=== PATIENT | female | born 1975 | race African-American/Black ===

== ENCOUNTER 2020-03-21 12:23 | Emergency (ER) | payer OTHER, SELFPAY ==
--- NOTE | 2020-03-21 12:29 | ED.GENADULT ---
HPI - General Adult General Chief complaint: Upper Respiratory Infection Stated complaint: Sore throat Time Seen by Provider: 03/21/20 12:29 Source: patient Mode of arrival: ambulatory Limitations: no limitations History of Present Illness HPI narrative: 44-year-old female patient presents to the [facility] with complaints of a sore throat intermittently for the past 3 weeks. Denies any fevers, body aches or chills. Denies any ear pain. Patient states she has had a little bit of a runny nose and some itchy watery eyes recently as well. Patient states she does have seasonal allergies. Denies trying any 24-hour antihistamines. Patient states she took Benadryl once or twice. Patient states she is also taking NyQuil couple of times but states that her symptoms continue to come back. Patient states that the symptoms do improve when she is taking the medications however she quickly come back when the medication wears off. Patient denies any abdominal pain, nausea, vomiting or diarrhea. Patient is type I diabetic but denies any spikes in her blood sugars. Related Data Home Medications Medication Instructions Recorded Confirmed insulin aspart U-100 [Novolog 03/21/20 U-100 Insulin aspart] insulin degludec [Tresiba SUBCUT 03/21/20 FlexTouch U-100] lisinopril 03/21/20 Allergies Allergy/AdvReac Type Severity Reaction Status Date / Time adhesive tape Allergy Unknown RASH Verified 07/29/18 16:40 almond Allergy Unknown THROAT Verified 07/29/18 16:40 SWELLING Review of Systems Review of Systems: Narrative: CONSTITUTIONAL: Denies fever, chills, or sweats. EYES: Denies visual changes, redness, or discharge. ENT: Positive rhinorrhea, congestion, sore throat, denies otalgia. CARDIOVASCULAR: Denies chest pain, palpitations, or edema. RESPIRATORY: Denies cough or dyspnea. GASTROINTESTINAL: Denies abdominal pain, nausea, vomiting, or diarrhea. GENITOURINARY: Denies dysuria or hematuria. SKIN: Denies rash or itching. MUSCULOSKELETAL: Denies back pain, joint pain, or myalgia. NEUROLOGIC: Denies headache, numbness, or weakness. PSYCHIATRIC: Denies anxiety or depression. [facility] Past Medical History Medical History (Updated 03/21/20 @ 13:09 by BARRON Lopez) Anxiety Depression Endometriosis Fibroids Hypertension Respiratory disorder Chest surgery due to pleurodesis Type 1 diabetes Family History Family History Mother Hypertension Father Family history of diabetes mellitus in first degree relative Family history of coronary artery disease Social History Social History Smoking status: Never smoker Alcohol intake: never Comments At the time of my signature I agree with nursing past medical history, surgical, social, and family history. There is no relevant family history pertinent to the presenting complaint. Exam Narrative: Exam Narrative: GENERAL: Well-appearing, well-nourished, and in no acute distress. HEAD: Normocephalic, atraumatic. No tenderness noted to frontal and maxillary sinuses on palpation EYES: PERRLA and EOMI. ENT: Nares with erythema and edema noted bilaterally, no rhinorrhea or epistaxis. Mucous membranes moist. Posterior pharynx with some postnasal drip present. No erythema no tonsil enlargement no exudates or lesions present. Bilateral TMs are clear no erythema or foreign bodies to the canal. Very mild fluid noted behind the left tympanic membrane. NECK: Supple. No lymphadenopathy CHEST: Clear to auscultation. No respiratory distress. HEART: Regular rate and rhythm. No murmur heard. Normal peripheral pulses. ABDOMEN: Soft, nontender, nondistended, normal active bowel sounds. EXTREMITIES: Normal range of motion. No edema. SKIN: Warm, dry, no rash. NEURO: No focal deficits. Alert and oriented x3. Course Reevaluation(s) Reevaluation #1: Reevaluated patient. Notif
[2020-03-21 12:33] VITALS: BP 115/67; PULSE 79; RESP 18; TEMP 36.7; O2SAT 99
== END 2020-03-21 13:12 | disposition home or self-care (01) ==
PROVIDERS: Emergency Provider Nurse Practitioner Family; PCP Family Medicine
DX: J30.2 Other seasonal allergic rhinitis (principal); J02.9 Acute pharyngitis, unspecified; N80.9 Endometriosis, unspecified; I10 Essential (primary) hypertension; E10.9 Type 1 diabetes mellitus without complications
CPT/HCPCS: 87081; 87880; 99213; G0463

== ENCOUNTER 2020-07-20 07:35 | Outpatient (CLI) | payer OTHER, SELFPAY ==
--- NOTE | ~2020-07-20 | MM_ITS ---
EXAMINATION: MM screening shilo BI w shani HISTORY: Screening TECHNIQUE: Craniocaudal and mediolateral oblique 3-D tomosynthesis images were obtained and synthetic 2-D images were generated. CAD analysis was submitted and interpreted. COMPARISON: Comparison to multiple prior studies sequentially, with oldest reviewed study dated 09/2013. BREAST PARENCHYMAL COMPOSITION: The breasts are heterogeneously dense, which may obscure small masses . FINDINGS: There are developing asymmetries and calcifications in the right breast. The left breast is stable without evidence for malignancy. IMPRESSION: 1. Developing right breast asymmetries and clustered calcifications in the right breast. 2. Additional mammographic views and possible breast ultrasound are recommended. BI-RADS Category 0: Incomplete: Needs additional imaging evaluation. Reviewed, dictated and finalized at location A. WASHER IMPRESSION: 1. Developing right breast asymmetries and clustered calcifications in the righ t breast. 2. Additional mammographic views and possible breast ultrasound are recommended . BI-RADS Category 0: Incomplete: Needs additional imaging evaluation.
== END 2020-07-20 07:36 | disposition home or self-care (01) ==
LOC: ANHIMG 07:40
PROVIDERS: PCP Family Medicine; Visit Provider Obstetrics & Gynecology
DX: Z12.31 Encounter for screening mammogram for malignant neoplasm of breast (principal); R92.8 Other abnormal and inconclusive findings on diagnostic imaging of breast
CPT/HCPCS: 77063; 77067

== ENCOUNTER 2020-08-26 10:58 | Outpatient (CLI) | payer OTHER, SELFPAY ==
--- NOTE | ~2020-08-26 | MMUS_ITS ---
EXAMINATION: MM diagnostic mammo unilat RT, US breast RT complete HISTORY: Follow-up right breast asymmetry and calcifications TECHNIQUE: Additional 3-D tomosynthesis images of the right breast were performed and synthetic 2-D i mages were generated. CAD analysis was submitted and interpreted. High resolution right breast ultras ound was performed. COMPARISON: Comparison to multiple prior studies sequentially, with oldest reviewed study dated 04/13. BREAST PARENCHYMAL COMPOSITION: The breasts are heterogenously dense, which may obscure small masses. FINDINGS: MAMMOGRAPHIC FINDINGS: There are clustered indeterminate calcifications in the lower inner quadrant of the right breast, mid dle third. Stable benign-appearing mass in the outer aspect of the right breast. No new masses, calci fications or architectural distortion to suggest malignancy. ULTRASOUND: Limited right breast ultrasound: At 9:00 near the nipple there is a 2 cm simple cyst. No suspicious m asses to suggest malignancy. IMPRESSION: 1. Clustered indeterminate right breast calcifications. 2. Stereotactic right breast biopsy recommended. BI-RADS category 4, suspicious findings. Reviewed, dictated and finalized at location A. ION ASSISTANT IMPRESSION: 1. Clustered indeterminate right breast calcifications. 2. Stereotactic right breast biopsy recommended. BI-RADS category 4, suspicious findings.
== END 2020-08-26 10:59 | disposition home or self-care (01) ==
LOC: ANHIMG 11:00
PROVIDERS: PCP Family Medicine; Visit Provider Obstetrics & Gynecology
DX: R92.8 Other abnormal and inconclusive findings on diagnostic imaging of breast (principal)
CPT/HCPCS: 76641; 77065

== ENCOUNTER 2020-09-04 10:05 | Outpatient (CLI) | payer OTHER, SELFPAY ==
--- NOTE | ~2020-09-04 | MM_ITS ---
07/30/2020 bilateral digital screening mammogram and 08/26/2020 diagnostic right digital mammogram and complete right breast ultrasound examination were reviewed. There are scattered benign calcifications of the right breast. There are 2 areas of calcification lik rajiv due to partially calcified fibroadenomas. No malignant calcifications are identified. I discussed the findings with the patient and indicated that the calcifications had benign appearance and that biopsy was not indicated or necessary. IMPRESSIONS: BI-RADS Category 2: Benign Recommendation: Routine annual mammographic screening Reviewed, dictated and finalized at location A. NICAL WRITING LEAD/MGR IMPRESSIONS: BI-RADS Category 2: Benign Recommendation: Routine annual mammographic screening
== END 2020-09-04 10:06 | disposition home or self-care (01) ==
LOC: ANHIMG 10:07
PROVIDERS: PCP Family Medicine; Visit Provider Surgery
DX: R92.8 Other abnormal and inconclusive findings on diagnostic imaging of breast (principal)
CPT/HCPCS: 99199

== ENCOUNTER 2020-09-16 11:30 | Outpatient (CLI) | payer OTHER, SELFPAY ==
[2020-09-16 14:25] LABS: Free T4 Free Thyroxine 1.51 ng/mL (0.78-2.19); Vitamin D 25 Hydroxy 35.9 ng/mL
[2020-09-19 05:18] LABS: FSH 114.7 mIU/mL (***); LH 73.9 mIU/mL (***); Prolactin 9.3 ng/mL (***)
== END 2020-09-16 11:31 | disposition home or self-care (01) ==
PROVIDERS: PCP Family Medicine; Visit Provider Nurse Practitioner
DX: N91.2 Amenorrhea, unspecified (principal)
CPT/HCPCS: 36415; 82306; 83001; 83002; 84146; 84439; 84443

== ENCOUNTER → 2021-07-07 08:33 | Outpatient (CLI) | payer OTHER, SELFPAY ==
--- NOTE | ~2021-07-07 | US_ITS ---
EXAMINATION: US pelvic complete EXAM DATE: 07/07/2021 08:54 INDICATION: Pelvic, perineal pain. TECHNIQUE: Pelvic transabdominal sonogram was performed. There are multiple grayscale and Doppler im ages available for interpretation. Comparison is made to prior examination from 07/07/2018. FINDINGS: Uterus measures 8.2 x 4.5 x 6.5 cm, with several several fibroids suspected, largest focal region measured at 5 cm, others much smaller. Endometrial stripe measures 4 mm, within normal limits . There is no free pelvic fluid. Right adnexa: The ovary measures 4.7 x 2.4 x 2.5 cm and is morphologically normal. Ovarian vascular f low confirmed. Left adnexa: The ovary measures 2.0 x 1.4 x 2.1 cm and is morphologically normal. Ovarian vascular fl ow confirmed. IMPRESSION: 1. Unremarkable pelvic ultrasound exam. Reviewed, dictated and finalized at location B. AGE GRINDER
== END ==
PROVIDERS: Visit Provider Obstetrics & Gynecology
DX: R10.2 Pelvic and perineal pain (principal)
CPT/HCPCS: 76856

== ENCOUNTER 2021-09-08 08:44 | Outpatient (CLI) | payer OTHER, SELFPAY ==
--- NOTE | ~2021-09-08 | MM_ITS ---
EXAMINATION: MM screening shilo BI w shani HISTORY: Screening mammogram TECHNIQUE: Craniocaudal and mediolateral oblique 3-D tomosynthesis images were obtained and synthetic 2-D images were generated. CAD analysis was submitted and interpreted. COMPARISON: 08/26/2020, 07/20/2020, 06/23/2019, 05/27/2019 BREAST PARENCHYMAL COMPOSITION: The breasts are heterogeneously dense, which may obscure small masses . FINDINGS: Scattered benign-appearing calcifications are present. There is no evidence of suspicious m ass, calcification, or architectural distortion to suggest malignancy in either breast. There has bee n no suspicious interval change. IMPRESSION: 1. No mammographic evidence of malignancy. 2. Recommend routine screening mammography in one year. BI-RADS Category 2: Benign finding(s). Reviewed, dictated and finalized at location A. ANICAL SPREADER OPERATOR
== END 2021-09-08 08:45 | disposition home or self-care (01) ==
LOC: ANHIMG 08:46
PROVIDERS: PCP Family Medicine; Visit Provider Obstetrics & Gynecology
DX: Z12.31 Encounter for screening mammogram for malignant neoplasm of breast (principal)
CPT/HCPCS: 77063; 77067

== ENCOUNTER 2021-11-21 13:06 | Outpatient (CLI) | payer OTHER, SELFPAY ==
--- NOTE | ~2021-11-21 | MR_ITS ---
EXAMINATION: MR shoulder LT wo con DATE: 11/21/2021 14:14 INDICATION: Left shoulder pain TECHNIQUE: Magnetic resonance imaging (MRI) of the left shoulder was performed without intravenous co ntrast. Sequences included axial PD-weighted FS FSE, coronal oblique PD-weighted FS FSE, coronal obli que T2-weighted FS FSE, sagittal PD-weighted FS FSE, and sagittal T1-weighted SE. COMPARISON: None. FINDINGS: Coracoacromial arch: The acromion undersurface is minimally curved in morphology (type I-II). The coracoacromial ligament is normal. Acromioclavicular joint is normal. Rotator cuff: Supraspinatus tendinopathy with very small likely intrasubstance tear along the superior facet footpl ate measuring 2 mm AP and involving no greater than one third of the tendon thickness. The teres khadra r tendon is normal. There is approximately 6 x 4 mm region of high signal intensity material along th e deep margin of the subscapularis tendon which extends approximately 12 mm craniocaudally along the medial margin of the lesser tuberosity insertion. There appears to be subtle concavity to the bone at this location which could represent an erosion. There is a similar small region of increased signal intensity and suggestion of a small erosion on the medial margin of the middle facet footplate of the infraspinatus tendon. The subscapularis and infraspinatus tendons are otherwise normal. This raises suspicion for inflammatory arthritis such as rheumatoid. Normal rotator cuff muscle bulk and signal. Biceps tendon, glenoid labrum and glenohumeral cartilage: Long head of the biceps tendon is normal. Glenoid labrum is normal. Mild partial-thickness cartilage loss with smooth chondral surface diffusely along the humeral head and at the cephalad third of the g lenoid. Fluid: Small amount of fluid in the long head biceps tendon sheath which is disproportionate to the physiolo gic amount fluid in the glenohumeral joint consistent with mild bicipital tenosynovitis. No loose ost eochondral bodies. No abnormal increased fluid in the subacromial/subdeltoid bursa consistent with mi ld bursitis. Bones: Bone alignment is normal. No fracture or pathologic marrow replacing process. IMPRESSION: 1. Mild supraspinatus tendinopathy with tiny mild intrasubstance tear along the superior facet footpl ate. 2. Suggestion of synovitis and periarticular erosions along the deep margins of the insertions of the subscapularis and infraspinatus tendons. Appearance raises possibility of inflammatory arthritis wit h differential including rheumatoid arthritis, psoriatic arthritis, lupus or ankylosing spondylitis. 3. Mild glenohumeral arthritis with mild partial-thickness cartilage loss which could be either degen erative or inflammatory in etiology. 4. Mild bicipital tenosynovitis. Reviewed, dictated and finalized at location A. IMPRESSION: 1. Mild supraspinatus tendinopathy with tiny mild intrasubstance tear along the superior facet footplate. 2. Suggestion of synovitis and periarticular erosions along the deep margins of the insertions of the subscapularis and infraspinatus tendons. Appearance rais es possibility of inflammatory arthritis with differential including rheumatoid arthritis, psoriatic arthritis, lupus or ankylosing spondylitis. 3. Mild glenohumeral arthritis with mild partial-thickness cartilage loss which could be either degenerative or inflammatory in etiology. 4. Mild bicipital tenosynovitis.
== END 2021-11-21 13:07 | disposition home or self-care (01) ==
PROVIDERS: PCP Family Medicine; Visit Provider Physician Assistant
DX: R29.898 Other symptoms and signs involving the musculoskeletal system (principal); M25.612 Stiffness of left shoulder, not elsewhere classified; S43.402A Unspecified sprain of left shoulder joint, initial encounter; M19.012 Primary osteoarthritis, left shoulder
CPT/HCPCS: 73221

== ENCOUNTER → 2021-12-16 13:18 | Outpatient (CLI) | payer OTHER, SELFPAY ==
--- NOTE | ~2021-12-16 | XR_ITS ---
EXAM: XR lumbar spine 2-3V DATE: 12/16/2021 14:31 HISTORY: M19.90 - Unspecified osteoarthritis, unspecified site . COMPARISON: None available. FINDINGS: 5 nonrib-bearing lumbar-type vertebral bodies. Pedicles intact. Normal vertebral body alig nment. Vertebral body heights preserved. Mild disc space narrowing at L3-4 and L5-S1. Normal facets a nd posterior elements. No fracture or dislocation. IMPRESSION: Mild degenerative disc disease. Reviewed, dictated and finalized at location K.
--- NOTE | ~2021-12-16 | XR_ITS ---
EXAM: XR thoracic spine 3V DATE: 12/16/2021 14:31 HISTORY: M19.90 - Unspecified osteoarthritis, unspecified site . COMPARISON: None available. FINDINGS: Surgical clips over the right hilum. Vertebral body alignment intact. Vertebral body height s preserved. No disc space narrowing. No traumatic malalignment or fracture. Visualized lung parenchy ma is clear. IMPRESSION: Normal thoracic spine radiograph findings. Reviewed, dictated and finalized at location K.
--- NOTE | ~2021-12-16 | XR_ITS ---
EXAM: XR sacrum coccyx min 2V DATE: 12/16/2021 14:31 HISTORY: M19.90 - Unspecified osteoarthritis, unspecified site . COMPARISON: None available. FINDINGS: Normal mineralization. No fracture or dislocation. No lytic or blastic lesion. Joint space s are maintained. No erosion or periosteal change. Soft tissues within normal limits. IMPRESSION: Normal sacrum and coccyx radiograph findings. Reviewed, dictated and finalized at location K.
== END ==
PROVIDERS: PCP Family Medicine; Visit Provider Physician Assistant
DX: M19.90 Unspecified osteoarthritis, unspecified site (principal); M54.9 Dorsalgia, unspecified; M51.36 Other intervertebral disc degeneration, lumbar region
CPT/HCPCS: 72072; 72100; 72220

== ENCOUNTER 2021-12-16 14:38 | Outpatient (CLI) | payer OTHER, SELFPAY ==
[2021-12-16 15:17] LABS: CRP < 0.5 mg/dL (<1.0)
[2021-12-16 15:20] LABS: Rheumatoid Factor < 8.6 IU/ML (<12)
[2021-12-16 15:24] LABS: Erythrocyte Sedimentation Rate 37 mm/hr (0-20)
== END 2021-12-16 14:39 | disposition home or self-care (01) ==
LOC: ANHLAB 14:39
PROVIDERS: PCP Family Medicine; Visit Provider Physician Assistant
DX: M19.90 Unspecified osteoarthritis, unspecified site (principal)
CPT/HCPCS: 36415; 85652; 86038; 86140; 86430

== ENCOUNTER 2022-01-15 08:45 | Outpatient (CLI) | payer OTHER, SELFPAY ==
--- NOTE | ~2022-01-15 | XR_ITS ---
EXAMINATION: XR lg joint inject/asp w image DATE: 01/15/2022 09:41 INDICATION: Frozen left shoulder TECHNIQUE: A time-out was performed to verify the patient's name, date of , and procedure to b e performed. The procedure including the risks, benefits, and alternatives was discussed with the pat ient. Risks discussed included bleeding and infection. The patient understood the risks and agreed to proceed. The skin overlying the rotator cuff interval of the left glenohumeral joint was prepped an d draped in usual sterile fashion. Anesthetic was administered with 1% lidocaine subcutaneously. A 22 G needle was advanced under fluoroscopic guidance into the joint. Injection of small amount of ga s confirmed intra-articular position of the needle. Subsequently, injectate consisting of 4 mm a 3:1 mixture of 1% lidocaine: 80 mg/mL Depo-Medrol for a total dosage of 80 mg Depo-Medrol was instilled. Washout of contrast was seen confirming intra-articular administration. The needle was removed and t he entry site was cleaned and dressed. There were no immediate complications. Fluoroscopy exposure t connor was 0.1 minutes. The total number of images was 2. FINDINGS: Real-time fluoroscopy demonstrates the needle and injected gas in the left glenohumeral armando nt. Patient's pain prior to procedure:7/10. Patient's pain following the procedure: 0/10. IMPRESSION: 1. Left glenohumeral joint injection of local anesthetic and steroid with decrease in the patient's p resenting pain. Reviewed, dictated and finalized at location A. IMPRESSION: 1. Left glenohumeral joint injection of local anesthetic and steroid with decre ase in the patient's presenting pain.
== END 2022-01-15 08:46 | disposition home or self-care (01) ==
PROVIDERS: PCP Family Medicine; Visit Provider Orthopaedic Surgery
DX: M75.02 Adhesive capsulitis of left shoulder (principal)
CPT/HCPCS: 20610; 77002; J1030

== ENCOUNTER 2022-04-20 11:38 | Outpatient (CLI) | payer OTHER, SELFPAY ==
[2022-04-20 12:12] LABS: Basophils Percent Auto 0.4 % (0.2-1.2); Eosinophils Absolute Auto 0.2 K/mm3 (0-0.3); Eosinophils Percent Auto 3.8 % (0-4.4); Hematocrit 40.2 % (37.0-47.0); Immature Granulocyte Absolute 0.01 K/mm3 (0.00-0.031); Immature Granulocyte Percent A 0.2 % (0-0.5); Lymphocytes Absolute Auto 1.97 K/mm3 (0.9-3.2); Lymphocytes Percent Auto 36.1 % (18.3-44.2); Mean Corpuscular HGB Conc 32.3 g/dl (32-36); Mean Corpuscular Hemoglobin 31.3 pg (26-34); Mean Corpuscular Volume 96.6 fl (80-100); Mean Platelet Volume 9.3 fl (7.4-10.4); Monocytes Absolute Auto 0.4 K/mm3 (0.1-0.6); Monocytes Percent Auto 7.1 % (2.6-8.5); Neutrophils Absolute Auto 2.9 K/mm3 (1.3-6.7); Neutrophils Percent Auto 52.4 % (45.5-73.1); Platelet Count Result 357 k/mm3 (150-375); Red Blood Count 4.16 M/mm3 (4.2-5.4); Red Cell Distribution Width 12.1 % (11.5-14.5); White Blood Count 5.5 K/mm3 (4.5-10.0)
[2022-04-20 12:26] LABS: Alanine Aminotransferase 10 U/L (6-35); Albumin Level 4.4 g/dL (3.5-5.1); Alkaline Phosphatase 140 U/L (38-126); Anion Gap 9 mmol/L (8-16); Aspartate Amino Transferase 24 U/L (14-36); Bilirubin,Total 0.2 mg/dL (0.2-1.3); Blood Urea Nitrogen 15 mg/dL (7-17); Calcium 9.3 mg/dL (8.4-10.2); Carbon Dioxide 27 mmol/L (22-30); Chloride 99 mmol/L (98-107); Cholesterol 185 mg/dL (0-200); Estimated Glomerular Filt Rate > 60; Glucose 225 mg/dL (65-110); HDL Direct 55 mg/dL; Potassium 4.3 mmol/L (3.4-5.0); Sodium 135 mmol/L (137-145); Triglycerides 68 mg/dL (<150)
[2022-04-20 12:38] LABS: LDL Cholesterol Direct 93 mg/dL
[2022-04-20 12:56] LABS: Creatinine Urine 26.7 mg/dL
[2022-04-20 13:02] LABS: Microalbumin Urine Random < 6.0 mg/L (0-16.7)
[2022-04-20 13:12] LABS: Free T4 Free Thyroxine 1.25 ng/mL (0.78-2.19)
== END 2022-04-20 11:39 | disposition home or self-care (01) ==
PROVIDERS: PCP Family Medicine
DX: E10.9 Type 1 diabetes mellitus without complications (principal); E55.9 Vitamin D deficiency, unspecified
CPT/HCPCS: 36415; 80053; 80061; 82043; 84439; 84443; 85025

== ENCOUNTER 2022-06-13 08:34 | Outpatient (CLI) | payer OTHER, SELFPAY ==
[2022-06-13 09:18] LABS: Alanine Aminotransferase 9 U/L (6-35); Alkaline Phosphatase 113 U/L (38-126); Anion Gap 6 mmol/L (8-16); Aspartate Amino Transferase 22 U/L (14-36); Bilirubin,Total 0.3 mg/dL (0.2-1.3); Blood Urea Nitrogen 16 mg/dL (7-17); Calcium 8.8 mg/dL (8.4-10.2); Carbon Dioxide 31 mmol/L (22-30); Chloride 102 mmol/L (98-107); Cholesterol 163 mg/dL (0-200); Estimated Glomerular Filt Rate > 60; Glucose 130 mg/dL (65-110); HDL Direct 42 mg/dL; Magnesium 1.7 mg/dL (1.6-2.3); Sodium 139 mmol/L (137-145); Triglycerides 58 mg/dL (<150)
[2022-06-13 09:29] LABS: LDL Cholesterol Direct 81 mg/dL
== END 2022-06-13 08:35 | disposition home or self-care (01) ==
LOC: ANHLAB 08:36
PROVIDERS: PCP Family Medicine; Visit Provider Internal Medicine Cardiovascular Disease
DX: E78.2 Mixed hyperlipidemia (principal); I10 Essential (primary) hypertension; R00.2 Palpitations
CPT/HCPCS: 36415; 80053; 80061; 83735

== ENCOUNTER 2022-07-01 08:58 | Emergency (ER) | payer OTHER, SELFPAY ==
[2022-07-01 09:03] VITALS: BP 140/73; PULSE 109; RESP 24; TEMP 36.2; O2SAT 100
--- NOTE | 2022-07-01 09:10 | ED.ALLEREA ---
HPI - Allergic Reaction General Chief complaint: Allergic Reaction Stated complaint: swollen tongue Time Seen by Provider: 07/01/22 09:00 Source: patient Mode of arrival: ambulatory Limitations: no limitations History of Present Illness HPI narrative: Ms. Sprague is a 46-year-old female patient presenting to the clinic today with complaints of tongue swelling. She reports her tongues has been swelling since . States that she started a new cholesterol medication on Wednesday. States that she has had the same reaction with atorvastatin before but her doctor wanted to try her on did different cholesterol medication. She has been taking Zetia. She denies any shortness of breath, drooling, or difficulty breathing Related Data Home Medications Medication Instructions Recorded Confirmed aspirin 81 mg tablet,delayed 81 mg PO DAILY 06/29/22 07/01/22 release biotin 10,000 mcg chewable tablet 10,000 mcg PO DAILY 06/29/22 07/01/22 (Hair, Skin and Nails (biotin)) insulin aspart U-100 100 unit/mL 75 unit subcut DAILY 06/29/22 07/01/22 subcutaneous solution (Novolog U-100 Insulin aspart) lisinopril 2.5 mg tablet 2.5 mg PO DAILY 06/29/22 07/01/22 Allergies Allergy/AdvReac Type Severity Reaction Status Date / Time atorvastatin Allergy Severe Swelling Verified 06/29/22 16:31 of Lip/Tongue/Throat adhesive tape Allergy Unknown RASH Verified 01/30/22 09:01 almond Allergy Unknown THROAT Verified 01/30/22 09:01 SWELLING ezetimibe [From Zetia] Allergy Swelling Verified 07/01/22 09:12 of Lip/Tongue/Throat Review of Systems Review of Systems: Pertinent positives per HPI. Patient denies any fever, chills, rash, headache, visual changes, dizziness, cough, runny nose, sore throat, shortness of breath, chest pain, palpitations, nausea, vomiting, diarrhea, constipation, abdominal pain, or any urinary issues. [facility] Past Medical History Medical History Adhesive capsulitis of left shoulder Anxiety Depression no diagnosis just with things going on she feels it. Endometriosis Fibroids History of blood transfusion Inflammatory arthritis Pneumothorax Respiratory disorder Chest surgery due to pleurodesis Type 1 diabetes Surgical History Surgical History H/O laparoscopy History of lung surgery due to pneumothorax Family History Family History Mother Hypertension Father Family history of diabetes mellitus in first degree relative Family history of coronary artery disease Social History Social History Smoking status: Never smoker Second hand tobacco smoke exposure: No Alcohol intake: never Substance use: never Substance use type: does not use Gender identity (if verbalized by the patient): Female Sexual Orientation (if Verbalized by the Patient): Straight or Heterosexual Spiritual care concerns: No Comments At the time of my signature, I reviewed and agree with the nursing past medical, surgical, social, and family history. There is no relevant family history pertinent to the patient complaint. Exam Narrative: General: Well-developed, well nourished, in no apparent distress Head: Normocephalic, atraumatic Eyes: Pupils equally round and reactive to light bilaterally, EOM intact, sclera and conjunctive clear, no discharge, lids normal Ears: TMs intact and clear, ear canals clear, no drainage, grossly hearing normal. Nose: Nares patent, no discharge, no inflammation, no sinus tenderness. Mouth: Oropharynx without lesions or masses, good dentition, MMM. tongue swelling, Mallampati class 4 due to tongue swelling Neck: Supple, trachea midline, no enlargement of anterior or posterior cervical nodes, no thyroid masses or goiter p
[2022-07-01 09:48] VITALS: PULSE 98; RESP 20; O2SAT 100
== END 2022-07-01 09:48 | disposition home or self-care (01) ==
PROVIDERS: Emergency Provider Nurse Practitioner Family; PCP Family Medicine
DX: T78.3XXA Angioneurotic edema, initial encounter (principal); N80.9 Endometriosis, unspecified; E10.9 Type 1 diabetes mellitus without complications; M13.80 Other specified arthritis, unspecified site; Z79.82 Long term (current) use of aspirin
CPT/HCPCS: 96372; 99213; G0463; J1100

== ENCOUNTER 2022-07-15 01:09 | Day surgery (SDC) | payer OTHER, SELFPAY ==
[2022-06-29 16:14] VITALS: BMI 33.7
--- NOTE | 2022-06-29 16:23 | SUR.PREOP ---
Report to the Outpatient Waiting Room, entrance under the green pavilion located off [facility], at time 0930 on date 07/15/21. Planned Procedure Time: . Time changes happen often and if your time is changed the preop area will call you the afternoon before. - You and your visitor will be asked to self-screen and do not enter if you have any COVID symptoms. - Only one visitor is requested with a max of two and NO children visitors are allowed at this time. - The patient visitor may be requested to leave or wait in car when not with patient due to distancing restrictions. - A mask is optional within the hospital. Patients may have clear liquids (water, carbonated beverages, clear teas, apple juice) until 3 hours prior to surgery with a maximum of 20 ounces. - No food from midnight until time of surgery BEFORE * - Infants may have breast milk until 4 hours before surgery, infant formula 6 hours prior to surgery. - Children will be allowed to drink immediately following surgery. If applicable, please bring a bottle or sippy cup to assist with drinking. Juice, water, soda, and popsicles are readily available. For infants on formula, please bring formula the day of surgery. Pacifiers are allowed. Take the following medications with a SIP of water the morning of surgery: ___continue insulin pump Medications to discontinue per physician ___hold aspirin 7 days prior to surgery per Raya from Dr. Paulino office Date to take last dose Please no make-up, nail german, hairspray, perfume, deodorant, or body powder the day of surgery. No jewelry (including any body piercings) or valuables the day of surgery, leave them at home. Please take a shower or bath the night before, or the morning of, surgery with an antibacterial soap. Wear comfortable, loose fitting clothing. Children are encouraged to wear pajamas. - Jewelry must be removed prior to entering the operating room. Rings and piercings that are not removed may be cut off. - The hospital will not accept responsibility for valuables. - Please leave all valuables, including medications, at home the day of surgery. If you are going home after surgery, a licensed residential recycle driver must drive you home. - NO public transportation without another adult if you receive anesthesia. - We recommend that an adult stay with you for 24 hours following discharge. - We also recommend that you do not drive, make important decision, drink alcoholic beverages, or take any drugs that were not prescribed by your health care provider for at least 24 hours after your discharge time. For Pediatric surgeries, we recommend two adults accompany the child home. Follow any additional instructions given to you from your surgeon. If you or anyone in your household have experienced Covid symptoms in the past week, please notify your surgeon or the nurse liaison at the phone number below for possible testing. Telephone instructions given to and asked if any additional questions and then verbalized understanding. Patient advised to call surgeon office or pre surgery nurse liaison [phone] if any additional questions.
--- NOTE | 2022-06-29 16:29 | SUR.PREOP ---
Addendum entered by Indy Dawson RN 06/29/22 16:37: hold vitamin 3 days prior Original Note: Report to the Outpatient Waiting Room, entrance under the green pavilion located off [facility], at time 0930 on date 07/15/2022. Planned Procedure Time: 1130. Time changes happen often and if your time is changed the preop area will call you the afternoon before. - You and your visitor will be asked to self-screen and do not enter if you have any COVID symptoms. - Only one visitor is requested with a max of two and NO children visitors are allowed at this time. - The patient visitor may be requested to leave or wait in car when not with patient due to distancing restrictions. - A mask is optional within the hospital. Patients may have clear liquids (water, carbonated beverages, clear teas, apple juice) until 3 hours prior to surgery with a maximum of 20 ounces. - No food from midnight until time of surgery before 8:30am - Infants may have breast milk until 4 hours before surgery, formula 6 hours prior to surgery. - Children will be allowed to drink immediately following surgery. If applicable, please bring a bottle or sippy cup to assist with drinking. Juice, water, soda, and popsicles are readily available. For infants on formula, please bring formula the day of surgery. Pacifiers are allowed. Take the following medications with a SIP of water the morning of surgery: __continue insulin pump_ Medications to discontinue per physician _discontinue Aspirin 7 days before surgery per Raya from Dr. Paulino office Date to take last dose Please no make-up, nail tristanian, hairspray, perfume, deodorant, or body powder the day of surgery. No jewelry (including any body piercings) or valuables the day of surgery, leave them at home. Please take a shower or bath the night before, or the morning of, surgery with an antibacterial soap. Wear comfortable, loose fitting clothing. Children are encouraged to wear pajamas. - Jewelry must be removed prior to entering the operating room. Rings and piercings that are not removed may be cut off. - The hospital will not accept responsibility for valuables. - Please leave all valuables, including medications, at home the day of surgery. If you are going home after surgery, a licensed sprinkler truck driver must drive you home. - NO public transportation without another adult if you receive anesthesia. - We recommend that an adult stay with you for 24 hours following discharge. - We also recommend that you do not drive, make important decision, drink alcoholic beverages, or take any drugs that were not prescribed by your health care provider for at least 24 hours after your discharge time. For Pediatric surgeries, we recommend two adults accompany the child home. Follow any additional instructions given to you from your surgeon. If you or anyone in your household have experienced Covid symptoms in the past week, please notify your surgeon or the nurse liaison at the phone number below for possible testing. Telephone instructions given to patient and asked if any additional questions and then verbalized understanding. Patient advised to call surgeon office or pre surgery nurse liaison [phone] if any additional questions.
--- NOTE | 2022-07-08 12:40 | PM.IMHP ---
H&P: HPI History of Present Illness Date/Time: 07/08/22 12:40 Chief Complaint: Right index trigger finger Narrative: 46-year-old female presents today for A1 amadou release of her right index finger. She has been having symptoms of triggering in her right index finger for over 6 months. Patient has had 2 cortisone injections which gave temporary relief. The triggering the pain has recurred. Due to the fact she has already had 2 injections it is recommended that she undergo release of the A1 amadou. Continued injections could soften the tendon because tendon rupture. Patient wished to proceed with surgery at this point. Review of Systems Review of Systems: All systems reviewed & are unremarkable except as noted in HPI and below PMFSH Past Medical History Medical History Adhesive capsulitis of left shoulder Anxiety Depression no diagnosis just with things going on she feels it. Endometriosis Fibroids History of blood transfusion Inflammatory arthritis Pneumothorax Respiratory disorder Chest surgery due to pleurodesis Type 1 diabetes Surgical History Surgical History H/O laparoscopy History of lung surgery due to pneumothorax Family History Family History Mother Hypertension Father Family history of diabetes mellitus in first degree relative Family history of coronary artery disease Social History Social History Smoking status: Never smoker Second hand tobacco smoke exposure: No Alcohol intake: never Substance use: never Substance use type: does not use Gender identity (if verbalized by the patient): Female Sexual Orientation (if Verbalized by the Patient): Straight or Heterosexual Spiritual care concerns: No Meds Home Medications and Allergies Home Medications Medication Instructions Recorded Confirmed Type aspirin 81 mg tablet,delayed 81 mg PO DAILY 06/29/22 07/01/22 History release biotin 10,000 mcg chewable tablet 10,000 mcg PO DAILY 06/29/22 07/01/22 History (Hair, Skin and Nails (biotin)) insulin aspart U-100 100 unit/mL 75 unit subcut DAILY 06/29/22 07/01/22 History subcutaneous solution (Novolog U-100 Insulin aspart) lisinopril 2.5 mg tablet 2.5 mg PO DAILY 06/29/22 07/01/22 History prednisone 20 mg tablet 40 mg PO DAILY 5 days #10 tabs 07/01/22 Rx Allergies Allergy/AdvReac Type Severity Reaction Status Date / Time atorvastatin Allergy Severe Swelling Verified 06/29/22 16:31 of Lip/Tongue/Throat adhesive tape Allergy Unknown RASH Verified 01/30/22 09:01 almond Allergy Unknown THROAT Verified 01/30/22 09:01 SWELLING ezetimibe [From Zetia] Allergy Swelling Verified 07/01/22 09:12 of Lip/Tongue/Throat Exam Narrative: 46-year-old female alert pleasant. She has moderate tenderness over the A1 amadou of the right index finger. She has a 5 degree flexion contracture of the PIP joint of the right index finger. She does have active triggering with range of motion. Resp: Auscultation: clear to auscultation bilaterally Cardio: Rate: regular rate Rhythm: regular rhythm Assessment and Plan Assessment and plan (1) Trigger finger: Code(s): M65.30 - Trigger finger, unspecified finger Status: Acute Plan 46-year-old female who has had recurrence of her right index trigger finger. Again she has had 2 injections and it has been recommended that she undergo surgical release of the A1 amadou rather continue injections as continued cortisone injections could soften the tendon to cause tendon rupture. Patient would like to proceed with surgery. Surgical procedure as well as risks complications were discussed in detail questions were answered and we will proceed. She will avoid any aspirin ibuprofen pro
--- NOTE | 2022-07-14 13:10 | WPDANESEPPF ---
Anes - Initial Pre Proc Eval Procedure: Operation Date: 07/15/22 14:00 Proposed Procedures p Release A-1 Lauren Right Index Finger - Gomez Paulino MD Date/Time: 07/14/22 13:10 Surgeon: Gomez Paulino MD Pre Op Diagnosis: right index trigger finger Patient Data Age: 46 Gender: F Height: 1.65 m Weight: 92.08 kg Allergies Allergy/AdvReac Type Severity Reaction Status Date / Time almond Allergy Severe THROAT Verified 07/15/22 09:39 SWELLING atorvastatin Allergy Severe Swelling Verified 07/15/22 09:39 of Lip/Tongue/Throat ezetimibe [From Zetia] Allergy Severe Swelling Verified 07/15/22 09:39 of Lip/Tongue/Throat adhesive tape Allergy Mild RASH Verified 07/15/22 09:39 Home Medications Medication Instructions Recorded Confirmed Type aspirin 81 mg tablet,delayed 81 mg PO DAILY 06/29/22 07/15/22 History release biotin 10,000 mcg chewable tablet 10,000 mcg PO DAILY 06/29/22 07/15/22 History (Hair, Skin and Nails (biotin)) insulin aspart U-100 100 unit/mL 75 unit subcut DAILY 06/29/22 07/15/22 History subcutaneous solution (Novolog U-100 Insulin aspart) lisinopril 2.5 mg tablet 2.5 mg PO DAILY 06/29/22 07/15/22 History semaglutide 0.25 mg or 0.5 mg (2 0.25 mg subcut WEEKLY 07/15/22 07/15/22 History mg/1.5 mL) subcutaneous pen injector (Ozempic) Patient hx anesthesia problems: none Family hx anesthesia problems: none Results Review: All pre-operative results and documents have been reviewed as part of the pre-operative evaluation. [facility] Past Medical History Medical History Adhesive capsulitis of left shoulder Anxiety Depression no diagnosis just with things going on she feels it. Endometriosis Fibroids History of blood transfusion Inflammatory arthritis Pneumothorax Respiratory disorder Chest surgery due to pleurodesis Type 1 diabetes Surgical History Surgical History H/O laparoscopy History of lung surgery due to pneumothorax Family History Family History Mother Hypertension Father Family history of diabetes mellitus in first degree relative Family history of coronary artery disease Social History Social History Smoking status: Never smoker Second hand tobacco smoke exposure: No Alcohol intake: never Substance use: never Substance use type: does not use Living arrangements: alone Gender identity (if verbalized by the patient): Female Sexual Orientation (if Verbalized by the Patient): Straight or Heterosexual Spiritual care concerns: No Anes - Eval Final PreProcedure Day of Procedure 07/14/22 13:10 Patient weight: obese Heart: regular rate and rhythm Lungs: clear to auscultation and normal air movement Airway: Mallampati scale class II Neurological: alert and oriented Last oral intake: >/= 8 hours ASA classification: III Emergent: no Anesthetic plan: proceed Anesthesia type and monitoring: general GIVS and LMA Results Review: All pre-operative results and documents have been reviewed as part of the pre-operative evaluation. Informed Consent: The patient's anesthetic plan and its attendant risks and benefits were discussed with the patient/family/POA. Questions were solicited and answers provided to the satisfaction of the patient/family/POA.
[2022-07-15 09:25] VITALS: BP 125/75; PULSE 88; RESP 16; TEMP 36.2; O2SAT 100
[2022-07-15] MEDS: ACETAMINOPHEN 500 MG TABLET 1000 MG PO (09:49)
[2022-07-15 10:01] LABS: Glucose Point of Care 125 mg/dl (65-105)
[2022-07-15] MEDS: LACTATED RINGERS 1,000 ML 30 ML IV CONT (10:02)
[2022-07-15] MEDS: KETOROLAC 15 MG/ML VIAL (*BKC) IV PUSH (10:03)
--- NOTE | 2022-07-15 10:08 | WPDHPUPDATE1 ---
History and Physical Update Update Date/Time: 07/15/22 10:08 History and Physical has been reviewed, including an updated exam of the patient. There are NO changes in the patient's condition. Risks, benefits, and alternatives have been discussed and questions answered. Patient agrees to proceed with procedure.
--- NOTE | 2022-07-15 10:13 | SUR.PREOP ---
pt has insulin pump infusing,dr ohara aware to continue during procedure.
[2022-07-15] MEDS: ceFAZolin 2 GM/D5W 50 ML 2 GM/50 ML BAG IVPB (10:42)
[2022-07-15] MEDS: LIDOCAINE HCL 1% LOCAL INJ 20 ML VIAL 30 ML INFILTRATE (10:57)
--- NOTE | 2022-07-15 11:06 | P.OP_ITS ---
Procedure Note - Detailed Date of Procedure 07/15/22 Pre-op Diagnosis right index trigger finger Post-op Diagnosis Same Procedure Performed Release A1 amadou right index finger Surgeon Gomez Paulino MD Laboratory Administrative Director [facility] Anesthesia General Description of Procedure Patient was brought to the operating room and general anesthesia was administered. She received 2 g of Ancef preoperatively. The right arm was prepped draped usual fashion. Local anesthesia of 1% plain lidocaine administer ed. The limb was exsanguinated tourniquet elevated to 250 mmHg. A 1 cm longitudinal incision was made over the A1 amadou of the right index finger. Dissection was carried down over the midline of the tendon sheath which was exposed. There was a 3 mm ganglion cyst emanating from the cleft between the A1 and A2 pulleys which was removed and the cleft carefully identified and released the A1 amadou was carried out from its distal edge completing this proximally. After this the finger immediately was able to fully extend including the PIP joint is could be hyperextended degrees passively without any significant pressure. There is no triggering through range of motion. Tourniquet was released. Hemostasis was achieved. The incision closed with 4-0 nylon sutures a Cell bulky dressing applied the patient transferred postop recovery in good condition. No known complications.
[2022-07-15 11:15] VITALS: BP 115/69; PULSE 80; RESP 16; O2SAT 97
[2022-07-15 11:40] VITALS: BP 111/65; PULSE 75; RESP 18; O2SAT 100
[2022-07-15 11:46] LABS: Glucose Point of Care 159 mg/dl (65-105)
[2022-07-15 12:10] VITALS: BP 112/72; PULSE 65; RESP 18
== END 2022-07-15 12:25 | disposition home or self-care (01) ==
PROVIDERS: PCP Family Medicine; Visit Provider Orthopaedic Surgery
PROC: (CPT 26055; principal; 2022-07-15 14:00)
DX: M65.321 Trigger finger, right index finger (principal); E10.9 Type 1 diabetes mellitus without complications; Z79.82 Long term (current) use of aspirin; Z79.84 Long term (current) use of oral hypoglycemic drugs; Z79.899 Other long term (current) drug therapy; E66.9 Obesity, unspecified; Z68.33 Body mass index [BMI] 33.0-33.9, adult
CPT/HCPCS: 26055; 82948; A9270; J0690; J1885; J2250; J2405; J2704; J3010; J7120

== ENCOUNTER 2022-07-29 08:15 | Outpatient (CLI) | payer OTHER, SELFPAY ==
[2022-07-29 09:02] LABS: Hematocrit 38.8 % (37.0-47.0); Hemoglobin 12.8 g/dL (12.0-15.0); Mean Corpuscular Hemoglobin 31.1 pg (26-34); Mean Corpuscular Volume 94.2 fl (80-100); Mean Platelet Volume 9.4 fl (7.4-10.4); Platelet Count Result 416 k/mm3 (150-375); Red Blood Count 4.12 M/mm3 (4.2-5.4); Red Cell Distribution Width 12.4 % (11.5-14.5); White Blood Count 6.5 K/mm3 (4.5-10.0)
[2022-07-29 09:12] LABS: Alanine Aminotransferase 14 U/L (6-35); Albumin Level 4.1 g/dL (3.5-5.1); Alkaline Phosphatase 121 U/L (38-126); Anion Gap 5 mmol/L (8-16); Aspartate Amino Transferase 26 U/L (14-36); Bilirubin,Total 0.3 mg/dL (0.2-1.3); Blood Urea Nitrogen 15 mg/dL (7-17); Carbon Dioxide 32 mmol/L (22-30); Chloride 102 mmol/L (98-107); Cholesterol 156 mg/dL (0-200); Estimated Glomerular Filt Rate > 60; Glucose 143 mg/dL (65-110); HDL Direct 48 mg/dL; Sodium 139 mmol/L (137-145); Triglycerides 71 mg/dL (<150)
[2022-07-29 09:23] LABS: LDL Cholesterol Direct 74 mg/dL
[2022-07-29 09:39] LABS: Vitamin D 25 Hydroxy 30.6 ng/mL
[2022-07-29 12:43] LABS: Creatinine Urine 38.9 mg/dL
[2022-07-29 12:49] LABS: MALB Creatinine Ratio 104.4 mg/g (0-30); Microalbumin Urine Random 40.6 mg/L (0-16.7)
== END 2022-07-29 08:16 | disposition home or self-care (01) ==
LOC: ANHLAB 08:18
PROVIDERS: PCP Family Medicine
DX: E10.9 Type 1 diabetes mellitus without complications (principal); E55.9 Vitamin D deficiency, unspecified
CPT/HCPCS: 36415; 80053; 80061; 82043; 82306; 82607; 84443; 85027

== ENCOUNTER 2022-08-19 13:01 | Outpatient (CLI) | payer OTHER, SELFPAY | END 2022-08-19 13:02 | disposition home or self-care (01) | LOC: ANHLAB 13:03 | PROVIDERS: PCP Family Medicine; Visit Provider Allergy & Immunology | DX: Z91.018 Allergy to other foods (principal) | CPT/HCPCS: 36415 ==

== ENCOUNTER 2022-09-21 08:56 | Outpatient (CLI) | payer OTHER, SELFPAY ==
--- NOTE | ~2022-09-21 | MM_ITS ---
EXAMINATION: MM screening shilo BI w shani HISTORY: Screening mammogram TECHNIQUE: Craniocaudal and mediolateral oblique 3-D tomosynthesis images were obtained and synthetic 2-D images were generated. CAD analysis was submitted and interpreted. COMPARISON: September 08, 2021 bilateral screening mammogram August 26, 2020 diagnostic right mammogram and complete right breast ultrasound July 20, 2020 bilateral screening mammogram BREAST PARENCHYMAL COMPOSITION: The breasts are heterogeneously dense, which may obscure small masses . FINDINGS: Scattered bilateral benign calcifications. There is no evidence of suspicious mass, calcifi cation, or architectural distortion to suggest malignancy in either breast. There has been no suspici ous interval change. IMPRESSION: 1. No mammographic evidence of malignancy. 2. Recommend routine screening mammography in one year. BI-RADS Category 2: Benign finding(s). Reviewed, dictated and finalized at location A.
== END 2022-09-21 08:57 | disposition home or self-care (01) ==
LOC: ANHIMG 08:58
PROVIDERS: PCP Family Medicine; Visit Provider Obstetrics & Gynecology
DX: Z12.31 Encounter for screening mammogram for malignant neoplasm of breast (principal)
CPT/HCPCS: 77063; 77067

== ENCOUNTER 2022-10-01 15:46 | Outpatient (CLI) | payer OTHER, SELFPAY ==
--- NOTE | ~2022-10-01 | MR_ITS ---
EXAMINATION: MR lumbar spine wo con DATE: 10/01/2022 16:30 INDICATION: Lumbago TECHNIQUE: Magnetic resonance imaging (MRI) of the lumbar spine was performed without intravenous con trast. Sequences included sagittal T2-weighted FSE, sagittal T2-weighted FS FSE, sagittal T1-weighted FSE, and axial T2-weighted FSE. COMPARISON: Lumbar spine radiographs dated FINDINGS: 1-2 mm retrolisthesis L4 on L5. 4 mm retrolisthesis L5 on S1. Vertebral body heights are normal. Nor mal marrow signal. Disc desiccation with minimal disc height loss at L5-S1. The more cephalad disc ar e normal. The conus medullaris terminates at L1-L2. There is normal signal in the caudal spinal cord. Subcentimeter T2 hyperintense left renal cyst. Paravertebral soft tissues are otherwise unremarkable . The following disc levels are specifically discussed: T12-L1: The disc does not extend beyond the endplate margin. There is no facet joint osteoarthritis. There is no neural foraminal stenosis. There is no central canal stenosis. L1-L2: The disc does not extend beyond the endplate margin. There is mild right facet joint osteoarth ritis. There is no neural foraminal stenosis. There is no central canal stenosis. L2-L3: The disc does not extend beyond the endplate margin. There is mild bilateral facet joint osteo arthritis. There is no neural foraminal stenosis. There is no central canal stenosis. L3-L4: The disc does not extend beyond the endplate margin. There is mild to moderate right and minim al left facet joint osteoarthritis. There is no neural foraminal stenosis. There is no central canal stenosis. L4-L5: Disc is minimally bulging. There is mild bilateral facet joint osteoarthritis. There is mild b ilateral neural foraminal stenosis. There is no central canal stenosis. L5-S1: Mild eccentric to the right disc bulge with annular fissure. There is mild to moderate bilater al facet joint osteoarthritis. There is mild left and mild to moderate right neural foraminal stenosi s. There is minimal central canal stenosis with narrowing of the lateral recesses, more prominent on the right with mass effect upon the traversing right S1 nerve root. IMPRESSION: 1. Mild lumbar spondylosis most notable for eccentric to the right disc bulge at L5-S1 exerts mass ef fect upon the traversing right S1 nerve root. Correlate clinically for muscle weakness of plantar fle xion, sensory change of the lateral foot and small toe, and depressed ankle reflex. Reviewed, dictated and finalized at location A. IMPRESSION: 1. Mild lumbar spondylosis most notable for eccentric to the right disc bulge a t L5-S1 exerts mass effect upon the traversing right S1 nerve root. Correlate c linically for muscle weakness of plantar flexion, sensory change of the lateral foot and small toe, and depressed ankle reflex.
== END 2022-10-01 15:47 | disposition home or self-care (01) ==
PROVIDERS: PCP Family Medicine; Visit Provider Nurse Practitioner Family
DX: M47.896 Other spondylosis, lumbar region (principal); M51.27 Other intervertebral disc displacement, lumbosacral region
CPT/HCPCS: 72148

== ENCOUNTER → 2022-11-23 10:05 | Outpatient (CLI) | payer OTHER, SELFPAY ==
--- NOTE | ~2022-11-23 | US_ITS ---
EXAMINATION: US transvaginal DATE: 11/23/2022 10:42 INDICATION: Postmenopausal bleeding Comparison:No prior studies for comparison. TECHNIQUE: Multiple endovaginal sonographic images of the pelvis performed. FINDINGS: The uterus measures 7.6 x 5.1 x 6.1 cm. There are uterine fibroids, largest measuring 2.9 c m. The endometrial complex measures 8 mm. The right ovary measures 1.6 x 1.6 x 1.9 and the left ovary is not visualized. There is no free fluid in the pelvis. There are no abnormal masses seen on either side. IMPRESSION: 1. Thickened endomtrial complex. The differential diagnosis includes endometrial hyperplasia, polyp a nd carcinoma. Biopsy is recommended. 2: Multiple uterine fibroids, largest measuring 2.9 cm. Reviewed, dictated and finalized at location B. IMPRESSION: 1. Thickened endomtrial complex. The differential diagnosis includes endometria l hyperplasia, polyp and carcinoma. Biopsy is recommended. 2: Multiple uterine fibroids, largest measuring 2.9 cm.
== END ==
PROVIDERS: PCP Nurse Practitioner; Visit Provider Nurse Practitioner
DX: N95.0 Postmenopausal bleeding (principal); D25.9 Leiomyoma of uterus, unspecified
CPT/HCPCS: 76830

== ENCOUNTER 2022-11-23 10:44 | Outpatient (CLI) | payer OTHER, SELFPAY ==
[2022-11-23 11:13] LABS: Hematocrit 41.9 % (37.0-47.0); Hemoglobin 13.6 g/dL (12.0-15.0); Mean Corpuscular HGB Conc 32.5 g/dl (32-36); Mean Corpuscular Hemoglobin 31.2 pg (26-34); Mean Corpuscular Volume 96.1 fl (80-100); Mean Platelet Volume 9.1 fl (7.4-10.4); Platelet Count Result 394 k/mm3 (150-375); Red Blood Count 4.36 M/mm3 (4.2-5.4); Red Cell Distribution Width 12.3 % (11.5-14.5); White Blood Count 4.8 K/mm3 (4.5-10.0)
[2022-11-23 11:59] LABS: Hemoglobin A1C 7.8 % (<5.7)
[2022-11-23 12:06] LABS: Free T4 Free Thyroxine 1.47 ng/mL (0.78-2.19)
== END 2022-11-23 10:45 | disposition home or self-care (01) ==
PROVIDERS: PCP Nurse Practitioner; Visit Provider Nurse Practitioner
DX: N95.0 Postmenopausal bleeding (principal)
CPT/HCPCS: 36415; 83036; 84439; 84443; 85027

== ENCOUNTER 2022-12-18 10:29 | Outpatient (CLI) | payer OTHER, SELFPAY ==
[2022-12-18 11:19] LABS: Anion Gap 6 mmol/L (8-16); Blood Urea Nitrogen 19 mg/dL (7-17); Calcium 8.5 mg/dL (8.4-10.2); Carbon Dioxide 31 mmol/L (22-30); Chloride 99 mmol/L (98-107); Estimated Glomerular Filt Rate > 60; Glucose 390 mg/dL (65-110); Potassium 4.2 mmol/L (3.4-5.0); Sodium 136 mmol/L (137-145)
== END 2022-12-18 10:30 | disposition home or self-care (01) ==
LOC: ANHSURGERY 10:33
PROVIDERS: Anesthesiology; PCP Family Medicine; Visit Provider Obstetrics & Gynecology Gynecology
DX: E11.9 Type 2 diabetes mellitus without complications (principal); Z01.818 Encounter for other preprocedural examination
CPT/HCPCS: 36415; 80048

== ENCOUNTER 2022-12-21 00:53 | Day surgery (SDC) | payer OTHER, SELFPAY ==
--- NOTE | 2022-12-14 13:42 | PC.NURSE ---
Report to the Outpatient Waiting Room, entrance under the green pavilion located off [facility], at time _1030_ on date _12/21/22_. Planned Procedure Time: _1230__. Time changes happen often and if your time is changed the preop area will call you the afternoon before. - You and your visitor will be asked to self-screen and do not enter if you have any COVID symptoms. - A mask is optional within the hospital at this time. Patients may have clear liquids (water, carbonated beverages, clear teas, apple juice) until 3 hours prior to surgery with a maximum of 20 ounces. - No food from midnight until time of surgery - Infants may have breast milk until 4 hours before surgery, infant formula 6 hours prior to surgery. - Children will be allowed to drink immediately following surgery. If applicable, please bring a bottle or sippy cup to assist with drinking. Juice, water, soda, and popsicles are readily available. For infants on formula, please bring formula the day of surgery. Pacifiers are allowed. Take the following medications with a SIP of water the morning of surgery: _pt on insulin pump__ DO NOT STOP ANY OF YOUR OTHER PRESCRIPTION MEDICATIONS PRIOR TO SURGERY ?EXCEPT THE FOLLOWING Medications to discontinue per physician ____Vitamins and supplements 3 days prior. Pt stopped ASA 81 mg weeks ago Date to take last dose Please no make-up, nail bengali, hairspray, perfume, deodorant, or body powder the day of surgery. No jewelry (including any body piercings) or valuables the day of surgery, leave them at home. Please take a shower or bath the night before, or the morning of, surgery with an antibacterial soap. Wear comfortable, loose fitting clothing. Children are encouraged to wear pajamas. - Jewelry must be removed prior to entering the operating room. Rings and piercings that are not removed may be cut off. - The hospital will not accept responsibility for valuables. - Please leave all valuables, including medications, at home the day of surgery. If you are going home after surgery, a licensed entry driver operator must drive you home. - NO public transportation without another adult if you receive anesthesia. - We recommend that an adult stay with you for 24 hours following discharge. - We also recommend that you do not drive, make important decision, drink alcoholic beverages, or take any drugs that were not prescribed by your health care provider for at least 24 hours after your discharge time. For Pediatric surgeries, we recommend two adults accompany the child home. Follow any additional instructions given to you from your surgeon. If you or anyone in your household have experienced Covid symptoms in the past week, please notify your surgeon or the nurse liaison at the phone number below for possible testing. Telephone instructions given to __patient__and asked if any additional questions and then verbalized understanding. Patient advised to call surgeon office or pre surgery nurse liaison [phone] if any additional questions.
[2022-12-14 14:00] VITALS: BMI 30.9
--- NOTE | 2022-12-21 09:12 | WPDHPUPDATE1 ---
History and Physical Update Update Date/Time: 12/21/22 09:12 History and Physical has been reviewed, including an updated exam of the patient. There are NO changes in the patient's condition. Risks, benefits, and alternatives have been discussed and questions answered. Patient agrees to proceed with procedure.
--- NOTE | 2022-12-21 09:12 | PM.HPGS ---
History of Present Illness History of Present Illness Consent: Risks, benefits, and alternatives have been discussed and questions answered. Patient agrees to proceed with procedure. Chief complaint: post menapausal bleeding Narrative: Kit Vaz is a 47 year old female who has been postmenopausal since 2019 with an episode of vaginal bleeding. Pelvic ultrasound was performed and endometrium was thickened at 8mm. There also incidental fibroids. The patient was recommended to proceed with D&C hysteroscopy for further evaluation. Risks of infection, bleeding, perforation, and possible pathology are reviewed. Patient voices understanding and agrees to proceed. Review of Systems Review of Systems: not repeated day of surgery; patient states no changes in status [facility] Past Medical History Medical History (Updated 12/21/22 @ 09:20 by Laila Rhodes MD) Adhesive capsulitis of left shoulder Anxiety Endometriosis Fibroids History of blood transfusion Hypertension Inflammatory arthritis Pneumothorax history of surgery same Respiratory disorder Chest surgery due to pleurodesis Type 1 diabetes Surgical History Surgical History (Updated 12/21/22 @ 09:19 by Laila Rhodes MD) H/O laparoscopy History of breast biopsy History of exploratory laparotomy x2 for endometriosis in the distant past History of lung surgery due to pneumothorax Family History Family History Mother Hypertension Father Family history of diabetes mellitus in first degree relative Family history of coronary artery disease Social History Social History Smoking status: Never smoker Second hand tobacco smoke exposure: No Alcohol intake: never Substance use: never Substance use type: does not use Living arrangements: with family Occupation/Education: occupation Gender identity (if verbalized by the patient): Female Sexual Orientation (if Verbalized by the Patient): Straight or Heterosexual Spiritual care concerns: No Meds Home Medications and Allergies Home Medications Medication Instructions Recorded Confirmed Type aspirin 81 mg tablet,delayed 81 mg PO DAILY 06/29/22 12/14/22 History release insulin aspart U-100 100 unit/mL 75 unit subcut DAILY 06/29/22 12/14/22 History subcutaneous solution (Novolog U-100 Insulin aspart) lisinopril 2.5 mg tablet 2.5 mg PO DAILY 06/29/22 12/14/22 History linaclotide 72 mcg capsule 72 mcg PO DAILY #90 caps 08/10/22 12/14/22 Rx (Linzess) Allergies Allergy/AdvReac Type Severity Reaction Status Date / Time almond Allergy Severe THROAT Verified 12/14/22 13:32 SWELLING atorvastatin Allergy Severe Swelling Verified 12/14/22 13:32 of Lip/Tongue/Throat ezetimibe [From Zetia] Allergy Severe Swelling Verified 12/14/22 13:32 of Lip/Tongue/Throat adhesive tape Allergy Mild RASH Verified 12/14/22 13:32 Exam Const: General: healthy appearing and alert Orientation/consciousness: patient oriented x3 Resp: Effort & Inspection: normal respiratory effort GI: GI Palp: Yes Soft to palpation, No Tenderness to palpation present (GI) and No Palpable mass present : External Female Exam: normal external appearance Speculum Exam - Vagina: normal appearance of the vagina and normal vaginal discharge Speculum Exam - Cervix: normal appearance of the cervix Bimanual exam- vagina & uterus: uterine size normal and consistency normal Bimanual Exam- Adnexa, other: normal adnexae and No adnexal tenderness Neuro: General: patient oriented x3 Assessment and Plan Assessment and plan (1) Post-menopausal bleeding: Code(s): N95.0 - Postmenopausal bleeding Status: Acute Assessment and Plan: plan to proceed with D&C hysteroscopy
[2022-12-21] MEDS: ACETAMINOPHEN 500 MG TABLET 1000 MG PO (11:07)
[2022-12-21] MEDS: LACTATED RINGERS 1,000 ML 30 ML IV CONT (11:10)
--- NOTE | 2022-12-21 11:12 | WPDANESEPPF ---
Anes - Initial Pre Proc Eval Procedure: Operation Date: 12/21/22 12:30 Proposed Procedures p Hysteroscopy Dilation and Curettage - Laila Rhodes MD Date/Time: 12/21/22 11:12 Surgeon: Laila Rhodes MD Pre Op Diagnosis: post menopausal bleeding Patient Data Age: 47 Gender: F Height: 1.68 m Weight: 87.09 kg Allergies Allergy/AdvReac Type Severity Reaction Status Date / Time almond Allergy Severe THROAT Verified 12/14/22 13:32 SWELLING atorvastatin Allergy Severe Swelling Verified 12/14/22 13:32 of Lip/Tongue/Throat ezetimibe [From Zetia] Allergy Severe Swelling Verified 12/14/22 13:32 of Lip/Tongue/Throat adhesive tape Allergy Mild RASH Verified 12/14/22 13:32 Home Medications Medication Instructions Recorded Confirmed Type aspirin 81 mg tablet,delayed 81 mg PO DAILY 06/29/22 12/14/22 History release insulin aspart U-100 100 unit/mL 75 unit subcut DAILY 06/29/22 12/14/22 History subcutaneous solution (Novolog U-100 Insulin aspart) lisinopril 2.5 mg tablet 2.5 mg PO DAILY 06/29/22 12/14/22 History linaclotide 72 mcg capsule 72 mcg PO DAILY #90 caps 08/10/22 12/14/22 Rx (Linzess) Patient hx anesthesia problems: none Family hx anesthesia problems: none Results Review: All pre-operative results and documents have been reviewed as part of the pre-operative evaluation. [facility] Past Medical History Medical History Adhesive capsulitis of left shoulder Anxiety Endometriosis Fibroids History of blood transfusion Hypertension Inflammatory arthritis Pneumothorax history of surgery same Respiratory disorder Chest surgery due to pleurodesis Type 1 diabetes Surgical History Surgical History H/O laparoscopy History of breast biopsy History of exploratory laparotomy x2 for endometriosis in the distant past History of lung surgery due to pneumothorax Family History Family History Mother Hypertension Father Family history of diabetes mellitus in first degree relative Family history of coronary artery disease Social History Social History Smoking status: Never smoker Second hand tobacco smoke exposure: No Alcohol intake: never Substance use: never Substance use type: does not use Living arrangements: with family Occupation/Education: occupation Gender identity (if verbalized by the patient): Female Sexual Orientation (if Verbalized by the Patient): Straight or Heterosexual Spiritual care concerns: No Anes - Eval Final PreProcedure Day of Procedure 12/21/22 11:12 Patient weight: overweight Heart: regular rate and rhythm Lungs: clear to auscultation Airway: Mallampati scale class IV Neurological: alert and oriented Last oral intake: >/= 8 hours ASA classification: II Emergent: no Anesthetic plan: proceed Anesthesia type and monitoring: general GIVS and standard monitoring Results Review: All pre-operative results and documents have been reviewed as part of the pre-operative evaluation. Informed Consent: The patient's anesthetic plan and its attendant risks and benefits were discussed with the patient/family/POA. Questions were solicited and answers provided to the satisfaction of the patient/family/POA.
[2022-12-21 11:16] VITALS: BP 121/74; PULSE 79; RESP 16; TEMP 36.3; O2SAT 100
[2022-12-21 11:17] LABS: Glucose Point of Care 187 mg/dl (65-105)
[2022-12-21] MEDS: LIDOCAINE HCL 1% LOCAL INJ 20 ML VIAL 10 ML INFILTRATE (11:55)
--- NOTE | 2022-12-21 12:03 | W.PM.PROC2 ---
Procedure Note - Detailed Date of Procedure 12/21/22 Pre-op Diagnosis post menopausal bleeding Post-op Diagnosis Same Procedure Performed D&C hysteroscopy with resection of polyps Surgeon Laila Rhodes MD Anesthesia MAC and Local Findings the cervix is pulled up and to the patient's left; uterus sounds to 9cm; there are 2 large polyps 1 arising from the fundus and 1 arising from the right sidewall that proceeds into the lower part of the cervical canal; atrophic appearing endometrium Description of Procedure The patient is taken to the operating room and placed under anesthesia in the dorsal lithotomy position. She was prepped and draped in the usual sterile fashion. [place] speculum was placed in the vagina and the cervix grasped on the anterior lip with a tenaculum and pulled to midline. The cervix is injected in each quadrant with 1% lidocaine. The uterus is sounded to 9cm. The diagnostic hysteroscope was placed with the above-stated findings. The Aveeta flex resection device is placed and under direct visualization the polyps are removed in their entirety. The hysteroscope was then removed and the sharp curette used to curette the endometrium until a good uterine cry was noted in all areas. Minimal material was obtained with this process consistent with the otherwise atrophic appearing endometrium. All instruments are removed and the patient awakened from anesthesia and taken to recovery in stable condition. Sponge, needle, and instrument counts are correct per the OR staff. Estimated Blood Loss 5 Drains No Packing No Pathology Yes ( Endometrial shavings and curettings) Complications No immediate complications Condition Stable Disposition PACU
[2022-12-21 12:05] VITALS: BP 114/61; PULSE 96; RESP 14; O2SAT 99
[2022-12-21 12:35] VITALS: BP 94/53; PULSE 75; O2SAT 99
[2022-12-21 13:05] VITALS: BP 101/58; PULSE 61
[2022-12-21 13:35] VITALS: BP 101/62; PULSE 65
== END 2022-12-21 13:47 | disposition home or self-care (01) ==
PROVIDERS: PCP Family Medicine; Visit Provider Obstetrics & Gynecology Gynecology
PROC: 0U5B8ZZ Destruction of Endometrium, Via Natural or Artificial Opening Endoscopic (ICD-10-PCS; CPT 58563; principal; 2022-12-21 12:30)
DX: N95.0 Postmenopausal bleeding (principal); N84.0 Polyp of corpus uteri; I10 Essential (primary) hypertension; E10.9 Type 1 diabetes mellitus without complications; Z79.4 Long term (current) use of insulin; Z79.82 Long term (current) use of aspirin
CPT/HCPCS: 58558; 82948; 88305; A9270; J2250; J2405; J2704; J3010; J7120

== ENCOUNTER 2023-07-26 08:53 | Outpatient (CLI) | payer OTHER, SELFPAY ==
--- NOTE | 2023-07-26 09:03 | ECG_ITS ---
Measurements Intervals Vance Rate: 78 P: 75 ME: 175 QRS: 52 QRSD: 77 T: 44 QT: 334 QTc: 382 Interpretive Statements SINUS RHYTHM VENTRICULAR PREMATURE COMPLEX BASELINE ARTIFACT- I, II, III, AVR, AVL, AVF BORDERLINE ECG NO PREVIOUS ECG AVAILABLE FOR COMPARISON Electronically Signed On 07-26-2023 9:34:30 PAINTER ASSISTANT by Titi Grove D.O.
[2023-07-26 09:31] LABS: Anion Gap 5 mmol/L (8-16); Blood Urea Nitrogen 17 mg/dL (7-17); Calcium 9.1 mg/dL (8.4-10.2); Carbon Dioxide 30 mmol/L (22-30); Chloride 105 mmol/L (98-107); Estimated Glomerular Filt Rate > 60; Glucose 174 mg/dL (65-110); Sodium 140 mmol/L (137-145)
== END 2023-07-26 08:54 | disposition home or self-care (01) ==
LOC: ANHSURGERY 08:56
PROVIDERS: Anesthesiology; PCP Family Medicine; Visit Provider Orthopaedic Surgery
DX: E10.9 Type 1 diabetes mellitus without complications (principal); R94.31 Abnormal electrocardiogram [ECG] [EKG]
CPT/HCPCS: 36415; 80048; 93005

== ENCOUNTER 2023-08-02 01:24 | Day surgery (SDC) | payer OTHER, SELFPAY ==
[2023-07-22 12:33] VITALS: BMI 32.6
--- NOTE | 2023-07-22 12:34 | PC.NURSE ---
Report to the Outpatient Waiting Room, entrance under the green pavilion located off [facility], at time _0930_ on date _[id number]_. Planned Procedure Time: _1130_. Time changes happen often and if your time is changed the preop area will call you the afternoon before. - You and your visitor will be asked to self-screen and do not enter if you have any COVID symptoms. - A mask is optional within the hospital at this time. Patients may have clear liquids (water, carbonated beverages, clear teas, apple juice) until 3 hours prior to surgery with a maximum of 20 ounces. - No food from midnight until time of surgery Take the following medications the morning of surgery: ___Take only 12 units of Tresiba and no short acting insulin. DO NOT STOP ANY OF YOUR OTHER PRESCRIPTION MEDICATIONS PRIOR TO SURGERY ?EXCEPT THE FOLLOWING Medications to discontinue per physician ____Patient stopped aspirin 1 week before surgery. Date to take last dose Please no make-up, nail [place], hairspray, perfume, deodorant, or body powder the day of surgery. No jewelry (including any body piercings) or valuables the day of surgery, leave them at home. Please take a shower or bath the night before, or the morning of, surgery with an antibacterial soap. Wear comfortable, loose fitting clothing. - Jewelry must be removed prior to entering the operating room. Rings and piercings that are not removed may be cut off. - The hospital will not accept responsibility for valuables. - Please leave all valuables, including medications, at home the day of surgery. If you are going home after surgery, a licensed seasonal delivery driver must drive you home. - NO public transportation without another adult if you receive anesthesia. - We recommend that an adult stay with you for 24 hours following discharge. - We also recommend that you do not drive, make important decision, drink alcoholic beverages, or take any drugs that were not prescribed by your health care provider for at least 24 hours after your discharge time. Follow any additional instructions given to you from your surgeon. If you or anyone in your household have experienced Covid symptoms in the past week, please notify your surgeon or the nurse liaison at the phone number below for possible testing. Telephone instructions given to _Kit__and asked if any additional questions and then verbalized understanding. Patient advised to call surgeon office or pre surgery nurse liaison [phone] if any additional questions.
--- NOTE | 2023-07-30 09:28 | PM.IMHP ---
H&P: HPI History of Present Illness Date/Time: 07/30/23 09:28 Chief Complaint: Right trigger thumb Narrative: 47-year-old female presents today for a right thumb A1 amadou release. Patient has been having triggering Right done that started around summer last year. She had a cortisone injection February of 2023 with minimal improvement.. She has had several other a 1 amadou releases done in her hands in the past. She feels that she would rather just proceed with surgery on the thumb. Review of Systems Review of Systems: All systems reviewed & are unremarkable except as noted in HPI and below [facility] Past Medical History Medical History (Updated 02/12/23 @ 12:13 by Clayton Priest MD) Adhesive capsulitis of left shoulder Anxiety Chronic constipation Endometriosis Fibroids History of blood transfusion Hypertension Inflammatory arthritis Pneumothorax history of surgery same Respiratory disorder Chest surgery due to pleurodesis Type 1 diabetes Surgical History Surgical History H/O laparoscopy History of breast biopsy History of exploratory laparotomy x2 for endometriosis in the distant past History of lung surgery due to pneumothorax Family History Family History Mother Hypertension Father Family history of diabetes mellitus in first degree relative Family history of coronary artery disease Social History Social History Smoking status: Never smoker Second hand tobacco smoke exposure: No Alcohol intake: never Substance use: never Substance use type: does not use Living arrangements: with family Occupation/Education: occupation Gender identity (if verbalized by the patient): Female Sexual Orientation (if Verbalized by the Patient): Straight or Heterosexual Spiritual care concerns: No Meds Home Medications and Allergies Home Medications Medication Instructions Recorded Confirmed Type aspirin 81 mg tablet,delayed 81 mg PO DAILY 06/29/22 07/22/23 History release insulin aspart U-100 100 unit/mL 75 unit subcut DAILY 06/29/22 07/22/23 History subcutaneous solution (Novolog U-100 Insulin aspart) lisinopril 2.5 mg tablet 2.5 mg PO DAILY 06/29/22 07/22/23 History linaclotide 72 mcg capsule 72 mcg PO DAILY #90 caps 02/09/23 07/22/23 Rx (Linzess) insulin degludec 100 unit/mL (3 24 unit subcut QAM 07/22/23 07/22/23 History mL) subcutaneous pen (Tresiba FlexTouch U-100 insulin) tirzepatide 5 mg/0.5 mL 5 mg subcut WEEKLY 07/22/23 07/22/23 History subcutaneous pen injector (Mounjaro) Allergies Allergy/AdvReac Type Severity Reaction Status Date / Time almond Allergy Severe THROAT Verified 07/22/23 12:25 SWELLING atorvastatin Allergy Severe Anaphylactic Verified 07/22/23 12:25 Shock ezetimibe [From Zetia] Allergy Severe Swelling Verified 07/22/23 12:25 of Lip/Tongue/Throat adhesive tape Allergy Mild RASH Verified 07/22/23 12:25 Exam Narrative: 47-year-old female alert pleasant. She has moderate tenderness over the A1 amadou of the right thumb. She has active triggering with range of motion. No numbness or tingling in the fingers. 2+ radial pulse. Skin is all intact. Resp: Auscultation: clear to auscultation bilaterally Cardio: Rate: regular rate Rhythm: regular rhythm Assessment and Plan Assessment and plan (1) Trigger finger: Code(s): M65.30 - Trigger finger, unspecified finger Status: Acute Plan 47-year-old female who has a right trigger thumb. She had 1 cortisone injection in February of last year with minimal improvement.. She feels she would rather just proceed with surgery. Surgical procedure as well as risks and complications were discussed in detail and all questions were answered and we will proceed. Patient
[2023-08-02] MEDS: ACETAMINOPHEN 500 MG TABLET 1000 MG PO (09:13)
[2023-08-02 09:22] VITALS: BP 121/66; PULSE 78; RESP 16; TEMP 36.6; O2SAT 100
[2023-08-02 09:39] LABS: Glucose Point of Care 220 mg/dl (65-105)
[2023-08-02] MEDS: LACTATED RINGERS 1,000 ML 30 ML IV CONT ×2 (09:43→13:40)
[2023-08-02] MEDS: KETOROLAC 15 MG/ML VIAL (*BKC) IV PUSH (09:43)
--- NOTE | 2023-08-02 11:24 | SUR.PREOP ---
Discussed delay with patient and her brother. Disappointed but understands.
--- NOTE | 2023-08-02 11:46 | WPDANESEPPF ---
Anes - Initial Pre Proc Eval Procedure: Operation Date: 08/02/23 11:30 Proposed Procedures p Right Thumb A1 Lauren Release - Gomez Paulino MD Date/Time: 08/02/23 11:46 Surgeon: Gomez Paulino MD Pre Op Diagnosis: right trigger thumb Patient Data Age: 47 Gender: F Height: 1.65 m Weight: 89.2 kg Last Vital Signs Temp 98 F 08/02/23 09:22 Pulse 78 08/02/23 09:22 Resp 16 08/02/23 09:22 BP 121/66 08/02/23 09:22 Pulse Ox 100 08/02/23 09:22 O2 Del Method Room Air 08/02/23 09:22 Allergies Allergy/AdvReac Type Severity Reaction Status Date / Time almond Allergy Severe THROAT Verified 08/02/23 09:09 SWELLING atorvastatin Allergy Severe Anaphylactic Verified 08/02/23 09:09 Shock ezetimibe [From Zetia] Allergy Severe Swelling Verified 08/02/23 09:09 of Lip/Tongue/Throat adhesive tape Allergy Mild RASH Verified 08/02/23 09:09 Home Medications Medication Instructions Recorded Confirmed Type aspirin 81 mg tablet,delayed 81 mg PO DAILY 06/29/22 07/22/23 History release insulin aspart U-100 100 unit/mL 75 unit subcut DAILY 06/29/22 07/22/23 History subcutaneous solution (Novolog U-100 Insulin aspart) lisinopril 2.5 mg tablet 2.5 mg PO DAILY 06/29/22 07/22/23 History linaclotide 72 mcg capsule 72 mcg PO DAILY #90 caps 02/09/23 07/22/23 Rx (Linzess) insulin degludec 100 unit/mL (3 24 unit subcut QAM 07/22/23 07/22/23 History mL) subcutaneous pen (Tresiba FlexTouch U-100 insulin) tirzepatide 5 mg/0.5 mL 5 mg subcut WEEKLY 07/22/23 07/22/23 History subcutaneous pen injector (Mounjaro) Laboratory Tests 08/02/23 09:33 POC Capillary Glucose 220 H mg/dl (65-105) Patient hx anesthesia problems: none Family hx anesthesia problems: none Results Review: All pre-operative results and documents have been reviewed as part of the pre-operative evaluation. [facility] Past Medical History Medical History (Updated 02/12/23 @ 12:13 by Clayton Priest MD) Adhesive capsulitis of left shoulder Anxiety Chronic constipation Endometriosis Fibroids History of blood transfusion Hypertension Inflammatory arthritis Pneumothorax history of surgery same Respiratory disorder Chest surgery due to pleurodesis Type 1 diabetes Surgical History Surgical History H/O laparoscopy History of breast biopsy History of exploratory laparotomy x2 for endometriosis in the distant past History of lung surgery due to pneumothorax Family History Family History Mother Hypertension Father Family history of diabetes mellitus in first degree relative Family history of coronary artery disease Social History Social History Smoking status: Never smoker Second hand tobacco smoke exposure: No Alcohol intake: never Substance use: never Substance use type: does not use Living arrangements: with family Occupation/Education: occupation Gender identity (if verbalized by the patient): Female Sexual Orientation (if Verbalized by the Patient): Straight or Heterosexual Spiritual care concerns: No Anes - Eval Final PreProcedure Day of Procedure 08/02/23 11:46 Patient weight: obese Heart: regular rate and rhythm Lungs: clear to auscultation Airway: Mallampati scale class II Neurological: alert and oriented Last oral intake: >/= 8 hours ASA classification: III Emergent: no Anesthetic plan: proceed Anesthesia type and monitoring: general LMA and standard monitoring Results Review: All pre-operative results and documents have been reviewed as part of the pre-operative evaluation. Informed Consent: The patient's anesthetic plan and its attendant risks and benefits were discussed with the patient/family/POA. Questions were solicited and answers provided to t
--- NOTE | 2023-08-02 11:47 | WPDHPUPDATE1 ---
History and Physical Update Update Date/Time: 08/02/23 11:47 History and Physical has been reviewed, including an updated exam of the patient. There are NO changes in the patient's condition. Risks, benefits, and alternatives have been discussed and questions answered. Patient agrees to proceed with procedure.
[2023-08-02] MEDS: ceFAZolin 2 GM/D5W 50 ML 2 GM/50 ML BAG IVPB (12:06)
[2023-08-02] MEDS: LIDOCAINE HCL 1% LOCAL INJ 20 ML VIAL 10 ML INFILTRATE (12:29)
[2023-08-02 12:56] VITALS: BP 93/52; PULSE 70; RESP 14; O2SAT 100
--- NOTE | 2023-08-02 13:01 | P.OP_ITS ---
Procedure Note - Detailed Date of Procedure 08/02/23 Pre-op Diagnosis right trigger thumb Post-op Diagnosis Same Procedure Performed A1 amadou release flexor tendon sheath right trigger thumb Surgeon Gomez Paulino MD Sales And Marketing Manager Pat Anesthesia General Findings Testing Description of Procedure Patient was brought to the operating room and general anesthesia was administered. The right hand was prepped and draped in the usual fashion. Local anesthesia was injected with 1% lidocaine. Patient received 2 g of Ancef preoperatively. A 1 cm longitudinal incision was made with a slight the longitudinally centered over the flexor crease at the base of the thumb. Dissection was carried down to the flexor tendon she with longitudinal careful dissection to avoid the digital nerves. The A1 amadou was identified. Was rather markedly thickened. The distal edge of the A1 amadou was identified and the A1 amadou was released in its central aspect with a clean 15 blade from distal to proximal. With this done, there was full gliding of the flexor pollicis longus tendon without catching through flexion extension.. There was relative thickening of the tendon just proximal to the released sheath. The tourniquet was released and hemostasis achieved with 1 minute the pressure the skin closed with 5 0 nylon suture a soft bulky dressing applied. There were no complications. After the patient had awakened a little bit in the operating room I asked her to voluntarily flex the IP joint and extended which she was unable to do before surgery and she could easily bend it to 90? and extended repeatedly without discomfort. No catching.
[2023-08-02] MEDS: fentaNYL CITRATE INJ (*CRX) 100 MCG/2 ML VIAL 25 MCG IV PUSH (13:06)
[2023-08-02 13:25] VITALS: BP 100/61; PULSE 62; RESP 16; O2SAT 100
[2023-08-02 13:40] LABS: Glucose Point of Care 279 mg/dl (65-105)
[2023-08-02 13:55] VITALS: BP 107/62; PULSE 60; RESP 16; O2SAT 100
== END 2023-08-02 14:15 | disposition home or self-care (01) ==
PROVIDERS: PCP Family Medicine; Visit Provider Orthopaedic Surgery
PROC: (CPT 26055; principal; 2023-08-02 11:30)
DX: M65.311 Trigger thumb, right thumb (principal); I10 Essential (primary) hypertension; E10.9 Type 1 diabetes mellitus without complications; K59.09 Other constipation; F41.9 Anxiety disorder, unspecified; N80.9 Endometriosis, unspecified; E66.9 Obesity, unspecified; Z68.32 Body mass index [BMI] 32.0-32.9, adult; Z79.82 Long term (current) use of aspirin; Z79.4 Long term (current) use of insulin; Z98.890 Other specified postprocedural states; Z82.49 Family history of ischemic heart disease and other diseases of the circulatory system
CPT/HCPCS: 26055; 82948; A9270; J0690; J1885; J2250; J2405; J2704; J3010; J7120

== ENCOUNTER 2023-10-01 09:44 | Outpatient (CLI) | payer OTHER, SELFPAY ==
--- NOTE | ~2023-10-01 | XR_ITS ---
AP view of the pelvis and AP and lateral views of the bilateral hips Clinical history: Pain Findings: No acute fracture or dislocation is seen. Osseous alignment is anatomic. Bilateral hip and SI joint spaces are preserved. Soft tissues are unremarkable. Impression: No significant abnormality is seen. Reviewed, dictated and finalized at location . Impression: No significant abnormality is seen.
== END 2023-10-01 09:45 ==
PROVIDERS: PCP Obstetrics & Gynecology Gynecology; Visit Provider Physician Assistant
DX: M25.551 Pain in right hip (principal)
CPT/HCPCS: 73521

== ENCOUNTER 2024-03-20 12:40 | Outpatient (CLI) | payer OTHER, SELFPAY ==
--- NOTE | ~2024-03-20 | US_ITS ---
EXAMINATION: US pelvic complete w TV DATE: 03/20/2024 13:19 INDICATION: Pelvic pain TECHNIQUE: Multiple transabdominal and endovaginal sonographic images of the pelvis were obtained. COMPARISON: None. FINDINGS: The uterus measures 9.5 x 4.7 x 6.3 cm. There are a few hypoechoic uterine fibroids measuring 2.6 cm, 2.1 cm and 1.9 cm in maximal diameters. The endometrial complex measures 8 mm in thickness. The righ t ovary measures 2.2 x 1.8 x 1.7 cm. There is a cystic lesion situated between the right ovary and ut erus which measures 3.8 x 1.3 x 3.3 cm. On the cine transabdominal imaging appears to represent a U-s haped tubular fluid-filled structure which would favor hydrosalpinx over ovarian cyst. The left ovary measures 2.0 x 2.0 x 1.3 cm. Vascular flow identified in both ovaries on color Doppler. There is no free fluid in the pelvis. IMPRESSION: 1. Persistent thickened endometrial complex measuring up to 8 mm. Differential would include endometr ial hyperplasia, polyp and carcinoma and would recommend biopsy. 2. At least 3 uterine fibroids measuring up to 2.6 cm in maximal diameter. 3. U-shaped tubular cystic structure at the right adnexa and given the configuration would favor a hy drosalpinx over ovarian cyst. Reviewed, dictated and finalized at location B. IMPRESSION: 1. Persistent thickened endometrial complex measuring up to 8 mm. Differential would include endometrial hyperplasia, polyp and carcinoma and would recommend biopsy. 2. At least 3 uterine fibroids measuring up to 2.6 cm in maximal diameter. 3. U-shaped tubular cystic structure at the right adnexa and given the configur ation would favor a hydrosalpinx over ovarian cyst.
== END 2024-03-20 12:41 | disposition home or self-care (01) ==
LOC: MICIMG 12:41
PROVIDERS: PCP Family Medicine; Visit Provider Nurse Practitioner Women's Health
DX: R93.89 Abnormal findings on diagnostic imaging of other specified body structures (principal); D25.9 Leiomyoma of uterus, unspecified
CPT/HCPCS: 76830; 76856

== ENCOUNTER 2024-06-05 11:23 | Outpatient (CLI) | payer OTHER, SELFPAY ==
--- NOTE | ~2024-06-05 | US_ITS ---
US pelvic complete Ordering provider: Laila Rhodes MD History: . RLQ pain . Comparison: None. Technique: Transabdominal ultrasound of the pelvis (Doppler ultrasound interrogation techniques used as needed for this exam.) FINDINGS: CERVIX: Normal. UTERUS: Measures 9.6x 4.4x 5.5 cm in length which is within normal limits and is anteverted. No myom etrial masses. Heterogenous echotexture. ENDOMETRIUM: Normal in thickness measuring 5 mm. No endometrial masses, cysts or fluid. CUL DE SAC: No free fluid. RIGHT OVARY: Normal in size measuring 3.3x 1.3x 2.4 cm. Normal echotexture. Doppler vascular flow pre sent. Fluid is seen in the right fallopian tube. LEFT OVARY: Normal in size measuring 3.6x 1.6x 2.4 cm. Normal echotexture. Doppler vascular flow pres ent. ADNEXA: Normal. No mass. IMPRESSION: Heterogenous echogenicity of the uterus which may indicate fibroids. Further evaluation advised. Dila stacia right fallopian tube. Otherwise, normal pelvic ultrasound. Reviewed, dictated and finalized at location A. [facility] IMPRESSION: Heterogenous echogenicity of the uterus which may indicate fibroids. Further ev aluation advised. Dilated right fallopian tube. Otherwise, normal pelvic ultras ound.
== END 2024-06-05 11:24 | disposition home or self-care (01) ==
LOC: MICIMG 11:24
PROVIDERS: PCP Obstetrics & Gynecology Gynecology; Visit Provider Obstetrics & Gynecology Gynecology
DX: N85.8 Other specified noninflammatory disorders of uterus (principal); R10.31 Right lower quadrant pain
CPT/HCPCS: 76856

== ENCOUNTER 2024-09-20 09:33 | Outpatient (CLI) | payer OTHER, SELFPAY ==
--- NOTE | ~2024-09-20 | MM_ITS ---
EXAMINATION: MM screening shilo BI w shani HISTORY: Screening mammogram TECHNIQUE: Craniocaudal and mediolateral oblique 3-D tomosynthesis images were obtained and synthetic 2-D images were generated. CAD analysis was submitted and interpreted. COMPARISON: 09/21/2022, 09/08/2021, 07/20/2020 BREAST PARENCHYMAL COMPOSITION:Dense: The breasts are heterogeneously dense, which may obscure small masses. FINDINGS: Benign calcifying fibroadenomas are noted. No suspicious mass, calcification, or architectu ral distortion are identified in either breast to suggest malignancy. There has been no suspicious in terval change. IMPRESSION: No mammographic evidence of malignancy. Recommend routine screening mammography in one year. BI-RADS Category 2: Benign finding(s). Reviewed, dictated and finalized at location .
--- OUTSIDE RECORDS SUMMARY | 2024-09-20 10:22 | XMS_ITS ---
Author Organization [facility] Address [address] [place] [address] Care Team Providers Care Valet Service Attendant Name Role Phone Clayton Priest MD Primary Care Provider Briseyda Mcguire Unavailable [phone] REASON FOR VISIT Rx Medications Medication SIG (Take, Route, Frequency, Duration) Notes Start Date End Date Status Azelastine HCl 137 MCG/SPRAY 2 sprays in each nostril Nasally Twice a day for 30 days 05/09/2024 Active Triamcinolone Acetonide 0.1 % 1 application Externally Twice a day for 30 days 05/09/2024 Active Encounters Encounter Location Date Provider Diagnosis [facility] [address] [place] [address] 09/18/2024 Briseyda Moon Allergic rhinitis due to pollen J30.1 and Allergic contact dermatitis due to adhesives L23.1 Assessments Encounter Date Diagnosis (ICD Code) Assessment Notes Treatment Notes Treatment Clinical Notes Section Notes 09/18/2024 Allergic rhinitis due to pollen (ICD-10 - J30.1) 09/18/2024 Allergic contact dermatitis due to adhesives (ICD-10 - L23.1) Plan Of Treatment Medication Medication Name Sig Start Date Stop Date Notes Azelastine HCl 137 MCG/SPRAY 2 sprays in each nostril Nasally Twice a day for 30 days 05/09/2024 Triamcinolone Acetonide 0.1 % 1 applicat ion Externally Twice a day for 30 days 05/09/2024 Progress Notes * Theodore RIDLEY:1975 ( 49 yo F)Acc No.[id number]:09/18/2024 Patient: Kit LEWIS :1975 A ge:49 Y S ex:Female Address:[address] [place] [address], [id number] * Refills Refill Azelastine HCl Solution, 137 MCG/SPRAY, Nasally, 1, 2 sprays in each nostril, Twice a day, 30 days, Refills=0 Refill Triamcinolone Acetonide Ointment, 0.1 %, Externally, 454, 1 application, Twice a day, 30 days, Refills=0 * true * Date: Generated for Jackeline dawson/Agapito/Andreinaitting on: 0 09/20/2024 10:22 AM CDT
--- OUTSIDE RECORDS SUMMARY | 2024-09-20 10:22 | XMS_ITS ---
Author Organization [facility] Address [address] [place] [address] Care Team Providers Care Rail Switch Operator Name Role Phone Cem LERNER, Clayton Primary Care Provider Briseyda Mcguire Unavailable [phone] REASON FOR VISIT ARC follow-up Encounters Encounter Location Date Provider Diagnosis [facility] [address] [place] [address] 06/07/2024 Briseyda Moon Plan Of Treatment No Information Progress Notes * Kit RIDLEYDOB:1975 ( 49 yo F)Acc No.[id number]:06/07/2024 Progress Notes Patient: Kit LEWIS Provider: Kaleb Moon MD :1975 A ge:48 Y S ex:Female Date:06/07/2024 Address:[address] [place], [place] [id number] Pcp:Clayton Priest MD Subjective: * Chief Complaints: * 1 . ARC follow-up. * Medical History: Objective: * Vitals: Assessment: Plan: * Treatment: * Billing Information: * Visit Code: * Procedure Codes: * Electronic signature of Cadence Moon MD on 09/20/2024 at 10:22 AM CDT Sign off status: Pending * Provider: Kaleb Moon MD Date: 08/07/2023 Generated for Jackeline dawson/Agapito/Andreinaitting on: 0 09/20/2024 10:22 AM CDT
--- OUTSIDE RECORDS SUMMARY | 2024-09-20 10:22 | XMS_ITS | Clinical Summary ---
Author Organization [facility] Address [address] [place] [address] Care Team Providers Care Senior Laboratory Technician Name Role Phone Unavailable Primary Care Provider Unavailabl e Social History Tobacco Use Types Packs/Day Years Used Date Smoking Tobacco: Never Assessed Comments Unknown Sex and Gender Information Value Date Recorded Sex Assigned at Not on file Legal Sex Female 9:51 PM CDT Gender Identity Not on file Sexual Orientation Not on file Plan of Treatment Health Maintenance Due Date Last Done Comments Cervical Cancer Screening Pa p Smear (Age 30 to 64) Every 3 Years 1973 Colorectal Cancer Screening Colonoscopy (10 Years) 1973 Annual Physical 1976 Hepatitis C 09/11/1991 DTaP, Tdap and Td Vaccines ( 1 - Tdap) 1992 Hepatitis B Vaccines (1 of 3 - 19+ 3-dose series) 1992 Cervical Cancer Screening Pa p with HPV Testing (Age 30 to 64) Every 5 Years 09/11/2003 Cervical Cancer Screening with HPV 09/11/2003 Mammogram Screening 2013 Zoster Vaccines (1 of 2) 09/11/2023 COVID-19 Vaccine (2023-2 5 season) 2024 Influenza Adult (#1) 2024 Meningococcal B Vaccine Aged Out No l onger eligible based on patient's age to complete this topic Meningococcal Vaccine Aged Out No chante alpa eligible based on patient's age to complete this topic Pneumococcal Vaccine: Pediat rics (0 to 5 Years) and At-Risk Patients (6 to 64 Years) Aged Out No longer eligible b ased on patient's age to complete this topic RSV Immunizations Under 20 Months Aged Out No longer eligible based on patient's age to complete this topic
--- OUTSIDE RECORDS SUMMARY | 2024-09-20 10:22 | XMS_ITS | Clinical Summary ---
Author Organization [facility] Address [address] [place] [address] Care Team Providers Care Gas Appliance Adjuster Name Role Phone Unavailable Primary Care Provider Unavailabl e Immunizations Immunization Administration Dates Next Due Covid-19, Mrna, Lnp-s, Pf, 30 Mcg/0.3 Ml Dose (P fizer) 07/21/2021 Social History Tobacco Use Types Packs/Day Years Used Date Smoking Tobacco: Never Assessed Comments Unknown Sex and Gender Information Value Date Recorded Sex Assigned at Not on file Legal Sex Female 9:27 AM GATE WATCH Gender Identity Not on file Sexual Orientation Not on file Plan of Treatment Health Maintenance Due Date Last Done Comments Hepatitis C Virus (HCV) Screening 1975 TdaP Immunization 1975 Hepatitis B Immunization (1 of 3 - 19+ 3-dose series) 1992 Colonoscopy 2018 Colorectal Cancer Screening 2018 Cologuard 09/11/2023 Immunochemical Fecal Occult Blood 09/11/2023 Pneumococcal Immunization (5 0+ years) (2 of 2 - PCV) 09/11/2023 06/10/2006 Zoster Immunization (1 of 2) 09/11/2023 Influenza Immunization (#1) 03/12/202404/11, 06/10/2006, 02/11/2006 SARS-COV-2 Immunization ( season) 2024 07/21/2021, 12/02/2020, 11/11/2020 Respiratory Syncytial Virus (RSV) Immunization (Adult) (1 - 1-dose 75+ series) 2048 Pneumococcal Immunization Combined Discontinued 06/10/2006 Cervical Cancer Screening (CCS) Discontinued Pap Smear Discontinued 04/23/2017 HPV/Cotest Discontinued Meningococcal Immunization (ACWY) Aged Out No longer eligible based on patient's age to complete this topic Rotavirus Immunization Aged Out No lo nger eligible based on patient's age to complete this topic
--- OUTSIDE RECORDS SUMMARY | 2024-09-20 10:22 | XMS_ITS | Patient Health Record ---
Author Organization [facility] Address [address] [place] [address] Care Team Providers Care Dowel Inspector Name Role Phone Clayton Priest MD Primary Care Provider Briseyda Mcguire Unavailable [phone] Allergies Allergen (clinical drug ingredient) Drug/Non Drug Allergy documented on EMR Reaction Allergy Type Onset Date Status atorvastatin Atorvastatin angioedema Drug Allergy Active ezetimibe Ezetimibe angioedema Drug Allergy Active Reason For Referral No Information Medications Medication SIG (Take, Route, Frequency, Duration) Notes Start Date End Date Status NovoLOG 100 UNIT/ML as directed Injection Active Azelastine HCl 137 MCG/SPRAY 2 sprays in each nostril Nasally Twice a day for 30 days 05/09/2024 Active Mounjaro 5 MG/0.5ML as directed Subcutaneous Active Tresiba 100 UNIT/ML as directed Subcutaneous Active Cetirizine HCl 10 MG 1 tablet Orally Onc e a day for 30 days 05/09/2024 Active EpiPen 2-Ghassan 0.3 MG/0.3ML as directed Injection Active Triamcinolone Acetonide 0.1 % 1 application Externally Twice a day for 30 days 05/09/2024 Active Social History Tobacco Use: Social History Observation Description Date Details (start date - stop date) Never Smoker NA - NA Tobacco Control (Standard) Question Answer Notes Tobacco use: Nonsmoker Problems Problem Type SNOMED Code ICD Code Onset Dates Problem Status W/U Status Risk Notes Problem Chronic allergic conjunctivitis (30218893) Other chronic allergic conjunctivitis (H10.45) Active confirmed Problem Allergic rhinitis caused by pollen (disorder) (17534230) Allergic rhinitis due to pollen (J30.1) Active confirmed Problem Allergic rhinitis (71900996) Other allergic rhinitis (J30.89) Active confirmed Problem Food allergy (410588021) Allergy to other foods (Z91.018) Active confirmed Problem Allergic rhinitis caused by animal hair and dander (926647661866576) Allergic rhinitis due to animal (cat) (dog) hair and dander (J30.81) Active confirmed Vital Signs Oximetry 100 % 05/09/2024 Blood pressure diastolic 77 mm Hg 05/09/2024 Height 65 in 05/09/2024 Blood pressure systolic 125 mm Hg 05/09/2024 Weight 184.8 lbs 05/09/2024 BMI 30.75 kg/m2 05/09/2024 Encounters Encounter Location Date Provider Diagnosis [facility] [address] [place] [phone] 05/09/2024 Briseyda Moon Dermatitis due to ingested food L27.2 ; Allergy to other foods Z91.018 ; Allergic rhinitis due to pollen J30.1 ; Allergic rhinitis due to animal (cat) (dog) hair and dander J30.81 ; Other allergic rhinitis J30.89 ; Other chronic allergic conjunctivitis H10.45 ; Allergic contact dermatitis due to adhesives L23.1 ; Allergic contact dermatitis due to cosmetics L23.2 and Dermatitis, unspecified L30.9 [facility] [address] [place] [id number] 09/18/2024 Briseyda Moon Allergic rhinitis du e to pollen J30.1 and Allergic contact dermatitis due to adhesives L23.1 Assessments Encounter Date Diagnosis (ICD Code) Assessment Notes Treatment Notes Treatment Clinical Notes Section Notes 05/09/2024 Dermatitis due to ingested food (ICD-10 - L27.2) Maria Victorias oropharyngeal symptoms from certain fresh fruits and nuts is consistent with oral allergy syndrome (OAS), a mild form of IgE-mediated allergy due to cross-reactivity between pollens and unstable food proteins on fresh produce and nuts. Not surprisingly, he/she had multiple positive skin tests to pollens on past skin testing. The vast majority of OAS never evolves into classic food allergy. As in his/her case, the processed and/or heated forms of these foods can be eaten without adverse reaction. There are numerous case reports of OAS symptoms improving in patients undergoing allergen immunotherapy to the cross-reactive pollens. 05/09/2024 Allergy to other foods (ICD-10 - Z91.018) 09/18/2024 Allergic rhinitis due to pollen (ICD-10 - J30.1) 09/18/2024 Allergic contact dermatitis due to adhesives (ICD-10 - L23.1) 05/09/2024 Allergic rhinitis due to pollen (ICD-10 - J30.1) Given the history and symptoms, skin testing was performed to common aeroallergens to determine atopic status. Roderick clearly suffers from atopic disease based upon our skin testing and clinical history. Accordingly, we have introduced a new, aggressive medication regimen, discussed nasal washes and allergy-specific avoidance measures. We also discussed adjunctive therapies including subcutaneous, specific allergen immunotherapy as relates to the treatment and prevention of atopic disease. She is currently considering the risks, benefits and alternatives to this care. Risks: bleeding, infection, allergic reaction, anaphylaxis; Benefits: reduced need for medications, improved symptoms, disease modification. Alternatives: watch/wait, change medication regimen, improve allergy avoidance measures. Follow-up in 1 month for interval evaluation and management 05/09/2024 Allergic rhinitis due to animal (cat) (dog) hair and dander (ICD-10 - J30.81) Follow allergen avoidance, meds and consider SCIT as an adjunctive treatment to current regimen 05/09/2024 Other allergic rhinitis (ICD-10 - J30.89) 05/09/2024 Other chronic allergic conjunctivitis (ICD-10 - H10.45) Given ocular signs and symptoms I encouraged allergy avoidance measures and meds as above. If symptoms persist, consider adding additional medications including intraocular antihistamine/mas t cell stabilizer, PRN 05/09/2024 Allergic contact dermatitis due to adhesives (ICD-10 - L23.1) Patch testing was peformed by Dr. Franco in 2022 with multiple sensitivities. We discussed continuing to rotate the sites of the Dexcom. Triamcinolone to be applied prn 05/09/2024 Allergic contact dermatitis due to cosmetics (ICD-10 - L23.2) continue avoidance of problematic products based off patch testing in 2022. 05/09/2024 Dermatitis, unspecified (ICD-10 - L30.9) she is developing local reactions from Mounjaro and recommend applying triamcinolone as needed Plan Of Treatment No Information Insurance Providers Payer Name Payer Address Payer Phone Subscriber Number Group Number Insured Name Patient Relationship to Insured Coverage Start Date Coverage End Date [employer] [address] [place] [address] [id number] I [id number] Kit Vaz Self - patient is the insured 4 Medical (General) History Medical History History ICD Code Type I diabetes Surgical History Surgery Date(Month/Year) Collapsed lung Endometriosis
--- OUTSIDE RECORDS SUMMARY | 2024-09-20 10:22 | XMS_ITS | Encounter Summary ---
Author Organization [facility] Address [address] [place] [address] Care Team Providers Care Charge Account Authorizer Name Role Phone Clayton Priest MD Primary Care Provider Encounter Details Date Type Department Care Team (Late st Contact Info) Description 10/20/2016 Orders Only [facility] ProviderSravan MD [address] [place] [address] Social History Tobacco Use Types Packs/Day Years Used Date Smoking Tobacco: Former Comments Unknown Sex and Gender Information Value Date Recorded Sex Assigned at Not on file Legal Sex Female 2:16 AM CIGAR HEAD HOLER Gender Identity Not on file Sexual Orientation Not on file documented as of this encounter Plan of Treatment Not on file documented as of this encounter Procedures Procedure Name Priority Date/Time Associated Diagnosis Comments CARDIOLOGY REPORT 10/20/2016 documented in this encounter Results * CARDIOLOGY REPORT (10/20/2016) Anatomical Region Laterality Modality Other Narrative 10/20/2016 Ordered by an unspecified provider. Historical Provider [facility] ERICA KELLOGG Final Result documented in this encounter Visit Diagnoses Not on filedocumented in this encounter Care Teams Charge Account Authorizer Relationship Specialty Start Date End Date Clayton Priest MD [address] [place] [address] PCP - General 10/13/16 documented as of this encounter
--- OUTSIDE RECORDS SUMMARY | 2024-09-20 10:22 | XMS_ITS ---
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 Name Role Phone Clayton Priest MD Primary Care Provider Briseyda Mcguire Unavailable [phone] Allergies Allergen (clinical drug ingredient) Drug/Non Drug Allergy documented on EMR Reaction Allergy Type Onset Date Status atorvastatin Atorvastatin angioedema Drug Allergy Active ezetimibe Ezetimibe angioedema Drug Allergy Active REASON FOR VISIT Chronic upper airway symptoms concerning for uncontrolled atopic disease, Mouth swelling and irritation Medications Medication SIG (Take, Route, Frequency, Duration) Notes Start Date End Date Status NovoLOG 100 UNIT/ML as directed Injection Active Azelastine HCl 137 MCG/SPRAY 2 sprays in each nostril Nasally Twice a day for 30 days 05/09/2024 Active Mounjaro 5 MG/0.5ML as directed Subcutaneous Active Triamcinolone Acetonide 0.1 % 1 application Externally Twice a day for 30 days 05/09/2024 Active Tresiba 100 UNIT/ML as directed Subcutaneous Active Cetirizine HCl 10 MG 1 tablet Orally Onc e a day for 30 days 05/09/2024 Active EpiPen 2-Ghassan 0.3 MG/0.3ML as directed Injection Active Social History Tobacco Use: Social History Observation Description Date Details (start date - stop date) Never Smoker NA - NA Tobacco Control (Standard) Question Answer Notes Tobacco use: Nonsmoker Problems Problem Type SNOMED Code ICD Code Onset Dates Problem Status W/U Status Risk Notes Problem Allergic rhinitis caused by pollen (disorder) (33136639) Allergic rhinitis due to pollen (J30.1) Active confirmed Problem Allergic rhinitis caused by animal hair and dander (602887101858934) Allergic rhinitis due to animal (cat) (dog) hair and dander (J30.81) Active confirmed Problem Allergic rhinitis (10242899) Other allergic rhinitis (J30.89) Active confirmed Problem Chronic allergic conjunctivitis (82121650) Other chronic allergic conjunctivitis (H10.45) Active confirmed Problem Food allergy (144289900) Allergy to other foods (Z91.018) Active confirmed Vital Signs Blood pressure systolic 125 mm Hg 05/09/20 24 Blood pressure diastolic 77 mm Hg 024 Height 65 in 05/09/2024 Weight 184.8 lbs 05/09/2024 BMI 30.75 kg/m2 05/09/2024 Oximetry 100 % 05/09/2024 Encounters Encounter Location Date Provider Diagnosis [facility] [address] [facility] [address] [place] [address] 05/09/2024 Briseyda Moon Dermatitis due to ingested [...] to cosmetics L23.2 and Dermatitis, unspecified L30.9 Assessments Encounter Date Diagnosis (ICD Code) Assessment Notes Treatment Notes Treatment Clinical Notes Section Notes 05/09/2024 Dermatitis due to ingested food (ICD-10 - L27.2) Roderick's oropharyngeal symptoms from certain fresh fruits and [...] Allergy to other foods (ICD-10 - Z91.018) 05/09/2024 Allergic rhinitis due to pollen (ICD-10 [...] applying triamcinolone as needed Plan Of Treatment Medication Medication Name Sig Start Date Stop Date Notes Azelastine HCl 137 MCG/SPRAY 2 sprays in each nostril Nasally Twice a day for 30 days 05/09/2024 Triamcinolone Acetonide 0.1 % 1 applicat ion Externally Twice a day for 30 days 05/09/2024 Cetirizine HCl 10 MG 1 tablet Orally Onc e a day for 30 days 05/09/2024 Treatment Notes Assessment Notes Dermatitis due to ingested food Roderick' s oropharyngeal symptoms from certain fresh fruits and [...] undergoing allergen immunotherapy to the cross-reactive pollens. Allergic rhinitis due to pollen Given th e history and symptoms, skin testing was performed [...] 1 month for interval evaluation and management Allergic rhinitis due to ani mal (cat) (dog) hair and dander Follow allergen avoidance, meds and consider SCIT as an adjunctive treatment to current regimen Other chronic allergic conjunctivitis Gi alisa ocular signs and symptoms I encouraged allergy avoidance measures and meds as above. 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 Josue ramirez in 2022 with multiple sensitivities. We discussed continuing to rotate the sites of the Dexcom. Triamcinolone to be applied prn Allergic contact dermatitis due to cosmetics continue avoidance of problematic produc ts based off patch testing in 2022. Dermatitis, unspecified she is milagros live local reactions from Mounjaro and recommend applying triamcinolone as needed Next Appt Details Follow Up: 4 Weeks, Reason: Evaluation and Management Procedure Notes * Category Sub-Category Detail Notes Skin Testing Number of Skin Tests Performed (including controls): Aeroallergen: Yes Epicutaneous: 72 Total (Epicutaneous): 72 Epicutaneous (New) skin testing was per formed to common aeroallergens; revealing positive reactions to; Veronica; Sahil, White; Beech; Birch; Black [place]; [place]; Kay; [place] (Eastern); Elm; [place] (Shagbark); Maple; [place] Mix; Ansted Mix; Ansted (Red); Ansted (White); [place] (Yellow); Sweet Gum; Avilla (Lebanese); Candia (Black); Bermuda; Brome; Fescue, Red/Dahlgren; William; K. Blue (December); Orchard; [place]; [place]; Lenny; [place]; Dock, Red ([place]); Dock, Yellow; Hemp, Nicki Water; Kochia; Cutler's Quarter; Brush Elder (Rough); Mugwort; Nettle; Pigweed, Spiny/Rough; Plantain, Syrian; Cat Hair; Cat Pelt; UF Dog; Ragweed Mix; Ecuadorean Thistle; [place] [address]; Alternaria; Bortytis Cinerea; positive and negative controls responded appropriately Progress Notes * Kit RIDLEYDOB:1975 ( 48 yo F)Acc No.[id number]:05/09/2024 Progress Notes Patient: Kit LEWIS Provider: Kaleb Moon MD :1975 A ge:48 Y S ex:Female Date:05/09/2024 Address:[address] [place] [address] Pcp:Clayton Priest MD Subjective: * Chief Complaints: * C hronic upper airway symptoms concerning for uncontrolled atopic diseaseMouth swelling and irritation * HPI: * Introduction: I had the pleasure of seeing Alex Ridley, a 48 year old with type 1 diabetes presenting for evaluation of oral swelling and mouth tingling. She was referred by Dr. Priest. Records were reviewed. Around age 33 she reports developing swelling inside her mouth. She was evaluated by Dr. Thomas at the time and told that she is allergic to Almonds. She was told to start Benadryl prn for symptoms and prescribed an EpiPen. Swelling improved, but restarted over the last few years.She reports patches inside her cheeks. No sores, but describes red patches that are sensitive on the sides of her tongue and lips. She also reports random swelling inside of her mouth. Last episode occurred about 3 months ago and lasted about 1 week. She was eating Doritos when the reaction started. She took Benadryl with improvement. She tolerates chocolate covered almonds. If she eats regular almonds,develops swelling inside her mouth along her jaw. She avoids fruit including apples due to throat itching. She has a history of seasonal allergies with congestion, rhinorrhea, and watery eyes. She was evaluated by Dr. Franco 07-31-22 and patch testing was performed showing sensitivity to Amerchol L, Beata Balsam, Fragrance Mix, 2-Hydroxyethyl Methacrylate, and Iodopropynyl Butylcarbamate, Hydroxyisohexyl 3-Cyclohexene Carboxaldehyde. She develops a rash from exposure to heart monitor and rash from Dexcom. She is applying hydrocortisone cream, Vaseline and Topaz Butter with some improvement. She is currently taking Mounjaro and developing local reactions. She follows with Dr. Askew. She has never undergone allergy skin testing or received allergy immunotherapy. She denies a history of physician-diagnosed allergic rhinitis, recurrent sinusitis or otitis media, recurrent pneumonia, asthma/RAD, eczema, urticaria/angioedema, medication allergies, latex allergy, eosinophilic esophagitis or stinging insect hypersensitivity,. * Allergic Rhinoconjunctivitis: Allergic rhinitis D o you have or suspect you have allergic rhinitis (itchy eyes, sneezing, congestion or runny nose triggered by allergies)? N o * Asthma: Cough D o you have a recurrent cough? N o * Urticaria: Urticaria (hives) D o you have recurrent hives? N o * Angioedema: Angioedema (swelling) D o you have recurrent swelling (angioedema)??No * Atopic dermatitis: Atopic dermatitis - Eczema D o you have chronic or recurrent atopic dermatitis or eczema? N o * Other Rash and Contact Dermatitis: Other rashes and contact dermatitis H ave you ever had any other form of rash or contact dermatitis? Y es W hen did the rash begin? 0 09/26/2004 H ow many episodes of this rash have you had in your life? 5 0 H ow many episodes of this rash have you had in the past 12 months? 2 5 H ow frequent do you have symptoms? s everal times a week H ow long do episodes (whole rash) last? g reater than 3 days H ow long does one spot (one lesion) or area of the rash last? If you were to [place] tribe one spot with a pen, how long would that area be affected??24-72 hours W hat time of day does the rash occur? a nytime (no predilection) W hat color is the rash? r ed B ina parts involved? a vitaly,legs,tongue,mouth,abdomen T ypical size of the lesions? 5 mm D escription of the rash? r aised above the surrounding - unaffected skin,gets darker for long periods of time after the acute rash resolves,bruises after acute rash resolves S ymptoms of rash? i tching,burning W hat triggers or provokes the rash? a dditives,other A s the rash resolves, are there any skin changes? h yperpigmentation (darker skin color) W hat improves the rash? t opical antihistamine (Benadryl cream),other unlisted treatment H ave you been evaluated by a prior physician for this rash? Y es W hat type of physician? A llergist W hat tests were performed? a irborne allergy skin testing,food allergy skin testing W as any of the testing abnormal? Y es * Prior Evaluations and Treatments: Prior evaluations and treatments H ave you been evaluated by another physician for allergic rhinitis, cough, wheezing, asthma, urticaria, angioedema, atopic dermatitis or eczema??No H ave you undergone testing for any aforementioned conditions or symptoms? N o H ave you ever been on allergy immunotherapy??No H ave you ever passed out during a blood draw, shot or vaccination? N o Last dose of antihistamine: H as your antihistamine been effective in controlling any of your symptoms? N o D o you take any other psychiatric medication??No * Food allergy: Food Allergy D o you currently have or have you ever had any proven or suspected food allergies? Y es W hat food(s)? a lmond W hat symptoms do you experience when foods are ingested? t ingling mouth or tongue or lips,adverse effect not listed H ow quickly do symptoms come on after food ingestion? 1 -2 hours H ave you ever been hospitalized or treated urgently for symptoms of a severe allergic reaction (anaphylaxis)? N o D o you carry self-injectable epinephrine for your prior reaction(s)? N o H ave you previously seen an investigation manager for evaluation of possible food allergy? Y es W as testing performed? Y es W hat type of testing was performed? s kin testing D id testing verify food allergy? Y es H ave you ever undergone a food challenge??Yes W ere any food challenges successful? N o W ere any food challenges unsuccessful? N o * Eosinophilic GI: Eosinophilic Gastrointestinal Disease D o you have difficulty swallowing foods or have you previously needed to have your esophagus dilated for food impaction or have you been diagnosed with eosinophilic gastrointestinal disease? N o * Stinging Insects: Insect Reaction(s) H ave you ever experienced a stinging insect reaction? N o * Medication allergy: Medication Allergy D o you feel you are allergic to any medications? Y es W hat type of medication? o ther (class not listed above) H ow was the medication administered? o ral W hat was the medication administered for??other diagnosis W hat symptom(s) did the medication cause??local swelling,shortness of breath W hen did the reaction first occur? 0 07/14/2022 H ave you been evaluated by an investigation manager previously for possible drug allergy? N o * ROS: A LLERGY: runny nose Y es. s cratchy throat Y es. e ar fullness N o. P ositive p er the HPI and history, otherwise unremarkable. S PECIAL SENSES: Positve for n one. C ONSTITUTIONAL: weight gain Y es. w eight loss Y es. f atigue?Yes. n ight sweats Y es. P ositive for n one. E NT: Positive p er the HPI and history, otherwise unremarkable.? R ESPIRATORY: Positive p er the HPI and history, otherwise unremakable.? O PHTHALMOLOGY: blurring of vision Y es. P ositive for p er the HPI and history, otherwise unremarkable. E NDOCRINOLOGY: weight loss Y es. s leep disturbance Y es. d iabetes Y es. P ositive for n one. C ARDIOLOGY: Positive for n one. G ASTROENTEROLOGY: abdominal pain Y es. c onstipation Y es. d iarrhea Y es. b lood in stool Y es. i ndigestion Y es. h emorrhoids Y es.?Positive for n one. U ROLOGY: Positive for n one. D ERMATOLOGY: rash Y es. m ole Y es. P ositive for p er the HPI and history, otherwise unremakable. N EUROLOGY: Positive for n one. H EMATOLOGY/LYMPH: Positive for n one. M USCULOSKELETAL: Positive for n one. P SYCHOLOGY: high stress level Y es. a nxiety Y es. P ositive for n one. F EMALE REPRODUCTIVE: heavy periods N o. h ot flashes Y es. a bnormal vaginal discharge N o. s exually active N o. i nfertility Y es. f requent yeat infections N o. p elvic pain Y es. b reast pain N o. n ipple discharge No. A re you ? N o. A re you planning on a future pregancy? N o. ? A ll other review of systems per the HPI and history, otherwise unremarkable. * Medical History: * Surgical History: C ollapsed lung Endometriosis * Hospitalization/Major Diagno stic Procedure: D enies Past Hospitalization * Family History: F ather: No. M other: Yes. P aternal Grand Father: No. P aternal Grand Mother: No.?Maternal Grand Father: No. M aternal Grand Mother: No. S iblings: Yes. * Social History: M arital Status What is your marital status? s brandon A lcohol Screening Do you ever drink alcoholic beverages? N o S moking Are you a : n ever smoker R ecreational drug use Have you ever used recreational drugs? N o D etails on consumption of certain products? Do you regularly consume products with aspartame; Equal or NutraSweet? Y es Do you regularly consume products with artificial coloring??Yes Have you ever noticed worsening of your rash with these food items? N o A re any of the following personal care products containing fragrance, dye or preservatives used regularly? Shampoo: Y es Conditioner: Y es Soap: Y es Laundry Detergent: Y es Deodorant: Y es Perfume, cologne, after shave: Y es Air freshners or other scented products: Y es O ccupation Are you currenly employed? Y es Employment status? 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 number of years?10 Do you believe that your current or previous occupation has any bearing on your illness? N o Do you have any pending or planned legal action against your current or former employer which pertains to your medical illness? N o Do you anticipate that your evaluation will be used in any legal action against your current employer or former employer? N o Are you currently a student? N o E nvironmental History Living environment: p rivate home Where is the home located? [place] How long have you lived there? 5 years or more How many people live in the home? 2 H ome description Basement: N o Any water damage in basement? N o Smokers in the home? N o Smokers outside the home? N o Air Conditioning? Y es Central Air? Y es Do you vacuum the home? Y es Is there carpeting in your bedroom? Y es Age of carpet? 1 0 Do you have [id number] carpeting? Y es What is the age of your carpeting? 1 0 What is the age of your mattress (years)? 0 What material(s) are used to manufacture your bedding and pillow? n atural fiber (e.g. cotton) What is the age of your pillow (years)? 1 What material are your bedding items made of? n atural fiber (e.g. cotton) Do you sleep with quilts or blankets or a duvet? Y es What material? n atural fiber (e.g. cotton) T obacco Control (Standard) Tobacco use: N onsmoker * Medications: T akingEpiPen 2-Ghassan 0.3 MG/0.3ML Solution Auto-injector as directed Injection Mounjaro 5 MG/0.5ML Solution Auto-injector as directed Subcutaneous Tresiba 100 UNIT/ML Solution as directed Subcutaneous NovoLOG 100 UNIT/ML Solution as directed Injection Medication List reviewed and reconciled with the patientTaking EpiPen 2-Ghassan 0.3 MG/0.3ML Solution Auto-injector as directed Injection Taking Mounjaro 5 MG/0.5ML Solution Auto-injector as directed Subcutaneous Taking Tresiba 100 UNIT/ML Solution as directed Subcutaneous Taking NovoLOG 100 UNIT/ML Solution as directed Injection Medication List reviewed and reconciled with the patient * Allergies: A torvastatin: angioedemaEzetimibe: angioedemano[Allergies Verified] Objective: * Vitals: B P:125/77mm Hg, HR:93/min, Pulse Oximetry:100%, Ht: 65 in, Wt: 184.8 lbs, BMI:30.75Index. * Examination: G eneral examination: General appearance: p leasant, well-developed, well-nourished. HEENT: c onjunctiva are clear bilaterally, no tenderness to palpation of the sinuses, TM's without evidence of acute infection, turbinates with pink mucosa, clear rhinorrhea is present, no polyps noted, no septal perforation, posterior oropharynx is clear, no exudates, no tongue swelling, and uvula is midline. Oral cavity: n ormal, no lesions. Neck, thyroid : s upple, non-tender, no anterior cervical lymphadenopathy. Breasts : n ot performed. Heart: R RR, S1-S2, no murmurs, no rubs, no gallops. Lungs: c lear to auscultation and percussion in all lung romero, no wheezes or crackles. Neurologic exam: u nremarkable. Skin: n ormal, no rash, dermatographism, urticaria, angioedema. Peripheral pulses: n ormal (2+) bilaterally. Back: n ormal. Extremities: n ormal ROM, no clubbing, no cyanosis, no edema. Genitalia: n ot performed. Assessment: * Assessment: 1. D ermatitis due to ingested food - L27.2 (Primary) 2 . A llergy to other foods - Z91.018 3 . A llergic rhinitis due to pollen - J30.1 4 . A llergic rhinitis due to animal (cat) (dog) hair and dander - J30.81 5 . O ther allergic rhinitis - J30.89 6 . O ther chronic allergic conjunctivitis - H10.45 7 . A llergic contact dermatitis due to adhesives - L23.1 8 . A llergic contact dermatitis due to cosmetics - L23.2 9 . D ermatitis, unspecified - L30.9 Plan: * Treatment: 2. A llergic rhinitis due to pollen Start Cetirizine HCl Tablet, 10 MG, 1 tablet, Orally, Once a day, 30 days, 30, Refills 0; S tart Azelastine HCl Solution, 137 MCG/SPRAY, 2 sprays in each nostril, Nasally, Twice a day, 30 days, 1, Refills 0. Notes: Given the history and symptoms, skin testing [...] 1 month for interval evaluation and management 3. A llergic rhinitis due to animal (cat) (dog) hair and dander Notes: Follow allergen avoidance, meds and consider SCIT as an adjunctive treatment to current regimen 4. O ther chronic allergic conjunctivitis Notes: Given ocular signs and symptoms I encouraged allergy avoidance measures and meds as above. If symptoms persist, consider adding additional medications including intraocular antihistamine/mast cell stabilizer, PRN 5. A llergic contact dermatitis due to adhesives Start Triamcinolone Acetonide Ointment, 0.1 %, 1 application, Externally, Twice a day, 30 days, 454, Refills 0. Notes: Patch testing was peformed by Dr. Franco in 2022 with multiple sensitivities. We discussed continuing to rotate the sites of the Dexcom. Triamcinolone to be applied prn 6. A llergic contact dermatitis due to cosmetics Notes: continue avoidance of problematic products based off patch testing in 2022. 7. D ermatitis, unspecified Notes: she is developing local reactions from Mounjaro and recommend applying triamcinolone as needed * Procedures: S kin Testing: Number of Skin Tests Performed (including controls): A eroallergen Y es E picutaneous 7 2 T otal (Epicutaneous) 7 2 Epicutaneous (New) s kin testing was performed to common aeroallergens; revealing positive reactions to; [place]; Sahil, White; Beech; Birch; [place]; [place]; Kay; [place] (Eastern); Elm; [place] (Shagbark); Maple; [place] Mix; [place] Mix; [place] (Red); [place] (White); [place] (Yellow); Sweet Gum; Avilla (Lebanese); Candia (Black); Berm[place]; Brome; Fescue, Red/Dahlgren; William; K. Blue (December); Orchard; [place]; [place]; Lenny; [place]; Dock, Red ([place]); Dock, Yellow; Hemp, Nicki Water; Kochia; Cutler's Quarter; Brush Elder (Rough); Mugwort; Nettle; Pigweed, Spiny/Rough; Plantain, Syrian; Cat Hair; Cat Pelt; UF Dog; Ragweed Mix; Ecuadorean Thistle; [place] [address]; Alternaria; Bortytis Cinerea; positive and negative controls responded appropriately. * Procedure Codes: 9 5004 PRICK TESTS, Units: 72.00 38437 PT-[facility]OCUSED [facility] RISK [id number] DOC MEDS VERIFIED W/PT OR RE * Preventive Medicine: Counseling: M edication instruction: W atch for side effects of prescribed medications, Nasal steroid/antihistamine instruction: avoid septum. E ducation: G ENERAL EDUCATION: Our staff spent an additional 30 minutes in direct contact with the patient educating them on their current diagnoses and proper treatment and prevention of symptoms and the proper use of medications. E ducation 2: A RC EDUCATION: Our staff discussed the appropriate allergen avoidance measures and medication utilization including upper airway hygiene with daily nasal washes given the patient's clinical status and diagnoses. SCIT EDUCATION: Discussed allergy immunotherapy including the relative risks, benefits and alternatives to this treatment as an adjunctive measure to current therapy, Allergy Immunotherapy: Risks: bleeding, infection, allergic reaction, anaphylaxis = severe allergic reaction that can cause ; Benefits: reduced need for medications, improved symptoms, disease modification. Alternatives: watch/wait, change medication regimen, improve allergy avoidance measures, Our staff discussed the warning signs of anaphylaxis and the indications to use self-injectable epinephrine and seek urgent or emergent care. P atient education material sent to portal? Y es C are goal follow up plan BMI management provided Y es Above Normal BMI Follow-up D ietary management education, guidance, and counseling B P Management: PRE-HYPERTENSIVE FOLLOW-UP PLAN: F ollow-up 1 month REFERRAL TO ALTERNATIVE / PRIMARY CARE PROVIDER: Ramona baxter to general physician * Follow Up: 4 Weeks (Reason: Evaluation and Management) * Billing Information: * Visit Code: 52946 Office Visit, New Pt., Level 4. Modifiers: 25 * Procedure Codes: 00312 PRICK TESTS. Units: 72.00. 86523 PT-FOCUSED [facility] RISK ASSMT. G8427 DOC MEDS VERIFIED W/PT OR RE. Images * mobile_05/09/2024 10:19:46 * Sign off status: Completed true * Provider: Kaleb Moon MD Date: 1 Generated for Aloi euince/Agapito/eTransmitting on: 0 09/20/2024 10:21 AM CDT History and Physical Notes * HPI (History of Present Illness) Category Sub-Category Detail Notes Category Not es *Introduction I had the pleasure of seeing Kit Ridley, a 48 year old with type 1 diabetes presenting for evaluation of oral swelling and mouth tingling. She was referred by Dr. Priest. Records were reviewed. Around age 33 she reports developing swelling inside her mouth. She was evaluated by Dr. Thomas at the time and told that she is allergic to Almonds. She was told to start Benadryl prn for symptoms and prescribed an EpiPen. Swelling improved, but restarted over the last few years. She reports patches inside her cheeks. No sores, but describes red patches that are sensitive on the sides of her tongue and lips. She also reports random swelling inside of her mouth. Last episode occurred about 3 months ago and lasted about 1 week. She was eating Doritos when the reaction started. She took Benadryl with improvement. She tolerates chocolate covered almonds. If she eats regular almonds,develops swelling inside her mouth along her jaw. She avoids fruit including apples due to throat itching. She has a history of seasonal allergies with congestion, rhinorrhea, and watery eyes. She was evaluated by Dr. Franco 07-31-22 and patch testing was performed showing sensitivity to Amerchol L, [place] Balsam, Fragrance Mix, 2-Hydroxyethyl Methacrylate, and Iodopropynyl Butylcarbamate, Hydroxyisohexyl 3-Cyclohexene Carboxaldehyde. She develops a rash from exposure to heart monitor and rash from Dexcom. She is applying hydrocortisone cream, Vaseline and Topaz Butter with some improvement. She is currently taking Mounjaro and developing local reactions. She follows with Dr. Askew. She has never undergone allergy skin testing or received allergy immunotherapy. She denies a history of physician-diagnosed allergic rhinitis, recurrent sinusitis or otitis media, recurrent pneumonia, asthma/RAD, eczema, urticaria/angioedema, medication allergies, latex allergy, eosinophilic esophagitis or stinging insect hypersensitivity, *Allergic Rhinoconjunctivitis Allergic rhinitis Do you have or suspect you have allergic rhinitis (itchy eyes, sneezing, congestion or runny nose triggered by allergies)?: No *Asthma Cough Do you have a recurrent cough?: No *Other Rash and Contact Dermatitis Other rashes and contact dermatitis Have you ever had any other form of rash or contact dermatitis?: Yes When did the rash begin?: 09/26/2004 How many episodes of this rash have you had in your life?: 50 How many episodes of this rash have you had in the past 12 months?: 25 How frequent do you have symptoms?: several times a week How long do episodes (whole rash) last?: greater than 3 days How long does one spot (one lesion) or area of the rash last? If you were to [place] one spot with a pen, how long would that area be affected?: 24-72 hours What time of day does the rash occur?: anytime (no predilection) What color is the rash?: red Body parts involved?: arms,legs,tongue,mouth,abdomen Typical size of the lesions?: 5 mm Description of the rash?: raised above the surrounding - unaffected skin,gets darker for long periods of time after the acute rash resolves,bruises after acute rash resolves Symptoms of rash?: itching,burning What triggers or provokes the rash?: additives,other As the rash resolves, are there any skin changes?: hyperpigmentation (darker skin color) What improves the rash?: topical antihistamine (Benadryl cream),other unlisted treatment Have you been evaluated by a prior physician for this rash?: Yes What type of physician?: [employer] What tests were performed?: airborne allergy skin testing,food allergy skin testing Was any of the testing abnormal?: Yes *Atopic dermatitis Atopic dermatitis - Eczema Do you have chronic or recurrent atopic dermatitis or eczema?: No *Urticaria Urticaria (hives) Do you have recurrent hives?: No *Medication allergy Medication Allergy Do you fe el you are allergic to any medications? : Yes What type of medication?: other (class not listed above) How was the medication administered?: oral What was the medication administered for?: other diagnosis What symptom(s) did the medication cause?: local swelling,shortness of breath When did the reaction first occur?: 07/14/2022 Have you been evaluated by a n investigation manager previously for possible drug allergy?: No *Stinging Insects Insect Reaction(s) Have you ev er experienced a stinging insect reaction? : No *Prior Evaluations and Treatments Prior evaluations and treatments Have you been evaluated by another physician for allergic rhinitis, cough, wheezing, asthma, urticaria, angioedema, atopic dermatitis or eczema?: No Have you undergone testing for any afore mentioned conditions or symptoms?: No Have you ever been on allergy immunother apy?: No Have you ever passed out during a blood draw, shot or vaccination?: No Last dose of antihistamine: Has your ant ihistamine been effective in controlling any of your symptoms?: No Do you take any other psychiatric medica tion?: No *Food allergy Food Allergy Do you currently have or have you ever had any proven or suspected food allergies?: Yes What food(s)?: almond What symptoms do you experience when foods are ingested?: tingling mouth or tongue or lips,adverse effect not listed How quickly do symptoms come on after food ingestion?: 1-2 hours Have you ever been hospitalized or treated urgently for symptoms of a severe allergic reaction (anaphylaxis)?: No Do you carry self-injectable epinephrine for your prior reaction(s)?: No Have you previously seen an investigation manager for evaluation of possible food allergy?: Yes Was testing performed?: Yes What type of testing was performed?: skin testing Did testing verify food allergy?: Yes Have you ever undergone a food challenge?: Yes Were any food challenges successful?: No Were any food challenges unsuccessful?: No *Eosinophilic GI Eosinophilic Gastroi ntestinal Disease Do you have difficulty swallowing foods or have you previously needed to have your esophagus dilated for food impaction or have you been diagnosed with eosinophilic gastrointestinal disease?: No *Angioedema Angioedema (swelling) Do you hav e recurrent swelling (angioedema)?: No Examination Category Sub-Category Detail Notes Category Not es General examination HEENT: conjunctiva are clear bilaterally, no tenderness to palpation of the sinuses, TM's without evidence of acute infection, turbinates with pink mucosa, clear rhinorrhea is present, no polyps noted, no septal perforation, posterior oropharynx is clear, no exudates, no tongue swelling, and uvula is midline Neck, thyroid : supple, non-tender, no anterior cervical lymphadenopathy Heart: RRR, S1-S2, no murmu rs, no rubs, no gallops Lungs: clear to auscultatio n and percussion in all lung romero, no wheezes or crackles Abdomen: Extremities: normal ROM, no clubb ing, no cyanosis, no edema General appearance: pleasant, well-devel oped, well-nourished Skin: normal, no rash, jeanna matographism, urticaria, angioedema Neurologic exam: unremarkable Oral cavity: normal, no lesions Breasts : not performed Peripheral pulses: normal (2+) bilatera lly Back: normal Genitalia: not performed
--- OUTSIDE RECORDS SUMMARY | 2024-09-20 10:23 | XMS_ITS | Referral Summary ---
Author Organization [facility] [place] [address] Address [address] [place] [address] Care Team Providers [facility] Cashier Name Role Phone Clayton Priest MD Primary Care Provider Encounters Date Type Department Care Team Description 06/26/2024 Orders Only [facility] Diabetes and Endocrinology [address] [place] [phone] Makenna Eng NP 06/26/2024 Orders Only [facility] Diabetes and Endocrinology [address] [place] [phone] Makenna Eng, RANDELL Type 1 diabetes mellitus with hyperglycemia (HCC) (Primary Dx) 06/26/2024 Telephone [facility] Diabetes and Endocrinology [address] [place] [phone] Makenna Eng NP Med Refill 06/22/2024 Orders Only [facility] Diabetes and Endocrinology [address] [place] [phone] Makenna Eng NP 06/22/2024 Telephone [facility] Diabetes and Endocrinology [address] [place] [phone] Makenna Eng NP Forms/questionnaires ([employer]) from Last 3 Months Allergies Active Allergy Reactions Criticality Noted Date Comments Adhesive Other (See comments) Low 06/12/2024 [place] Oil Anaphylaxis High 05/31/2014 Atorvastatin Swelling,Other (See comments) Medium 2022 Ezetimibe Swelling High 2022 Lisinopril Angioedema High 02/28/2024 Throat swelling Losartan Other (See comments) Low 02/28/2024 Welts in mouth Retllil-Fly-Ulo Reductase Inhibitors Edema High 10/14/2023 Medications blood glucose diagnostic strip Use Freestyle lite test strip to check blood sugars 4 x a day 150 each 11 0 Active Linzess 72 mcg capsule Take 1 capsule (72 mcg total) by mouth daily 2 Active aspirin 81 mg enteric coated tablet Take 1 tablet (81 mg total) by mouth daily 3 Active pen needle, diabetic 32 gauge x needleIndications :Type 1 diabetes mellitus without complication (HCC) Use pen needle with insulin injection 4 x a day 400 each 3 3 Active clobetasoL (TEMOVATE) 0.05 % cream APPLY TO THE AFFECTED AREA ONCE WEEKLY DIRECTED Active diazePAM (VALIUM) 10 mg tablet INSERT ONE TABLET VAGINALLY EVERY NIGHT AT BEDTIME FOR 10 DAYS DIRECTED Active blood-glucose sensor (Dexcom G6 Sensor) deviceIndications :Type 1 diabetes mellitus with hyperglycemia (HCC) USE DIRECTED, CHANGE SENSOR EVERY 10 DAYS 9 each 4 Active insulin aspart (NovoLOG) 100 unit/mL (3 mL) pen for injection Take 1 unit for every 8 grams of carbs with meals + 1:25>125 mg/dl: TDD 60 units 30 mL 6 4 Active TRESIBA 100 unit/mL (3 mL) pen for injectionIndicati ons:Type 1 diabetes mellitus with hyperglycemia (HCC) Inject 0.2 mL (20 Units total) under the skin nightly 15 mL 11 4 Active glucagon (Baqsimi) 3 mg/actuation spray,non-aerosol Administer 1 spray into one nostril as needed (hypoglycemia) 2 each 4 Active blood-glucose transmitter (Dexcom G6 Transmitter) deviceIndications :Type 1 diabetes mellitus with hyperglycemia (HCC) CHANGE DEXCOM G6 TRANSMITTER EVERY 90 DAYS 1 each 3 4 Active azelastine (ASTELIN) 137 mcg (0.1 %) nasal spray Administer 2 sprays into each nostril 2 (two) times a day 10/29/202 4 Active triamcinolone (KENALOG) 0.1 % ointment APPLY TOPICALLY TO THE AFFECTED AREA TWICE DAILY 4 Active tirzepatide (Mounjaro) 2.5 mg/0.5 mL pen injectorIndicatio ns:Type 1 diabetes mellitus with hyperglycemia (HCC) Inject 0.5 mL (2.5 mg total) under the skin every 7 days 6 mL 3 4 025 Active insulin aspart U-100 (NovoLOG PenFill U-100 Insulin) 100 unit/mL cartridgeIndicati ons:Type 1 diabetes mellitus with hyperglycemia (HCC) Inject 10-20 Units under the skin 3 (three) times a day before meals 60 mL 3 4 025 Active Active Problems Problem Noted Date Diagnosed Date PILAR (obstructive sleep apnea) 12/28/2022 Assessment & Plan (04/19/2023 2:34 PM CDT): The patient continue to use positional therapy. Assessment & Plan (12/28/2022 9:57 AM CDT): I discussed the sleep study with the patient and she had an AHI greater than 25 obstructive respiratory events per hour sleep. She is not been able to fall asleep with the CPAP mask in place but would like to try again. She states that she will contact her dentist an insurance company and may be amenable to a referral for an oral appliance if she can not adapt to the CPAP unit. She will follow-up with me in 3 months. Vitamin D deficiency 04/13/2022 Assessment & Plan (04/13/2022 3:55 PM CDT): -No longer taking supplement -Will repeat level B12 deficiency 04/13/2022 Assessment & Plan (04/13/2022 3:55 PM CDT): -No longer taking supplement -Will repeat level Anxiety 05/12/2018 Atrioventricular block 05/12/2018 Depressive disorder 05/12/2018 Disturbance in speech 05/12/2018 Dyspnea on exertion 05/12/2018 Fatigue 05/12/2018 Pneumothorax 05/12/2018 Ringing in ear 05/12/2018 Weight gain 05/12/2018 Chest discomfort 05/12/2018 Type 1 diabetes mellitus 03/24/2018 Assessment & Plan (06/12/2024 11:17 AM AUTO PHONE INSTALLER): Chronic problem. A1c uncontrolled & worsened from 8.8% 02/28/24 to now 9.4%. Not adequately giving insulin; fearful of lows (maybe once/mo). Discussed poor control & increasing A1c (uncontrolled). Discussed inpen that she'd been on in the past. Website given for [employer] to contact to see if insurance will approve. Will decrease Mounjaro to 2.5 mg weekly d/t GI issues on 5mg weekly. Current medications: Mounjaro 2.5mg weekly Tresiba 20 units at bedtime, wants to move back to daytime. Novolog 1:8 with meals plus correction below (typically 60 units/day at max) If blood sugar is between 110-145, add 1 units. If blood sugar is between 146-180, add 2 units. If blood sugar is between 181-215, add 3 units. If blood sugar is between 216-250, add 4 units. If blood sugar is between 251-285, add 5 units. If blood sugar is between 286-320, add 6 units. If blood sugar is over 321, add 7 units. UTD on labs. DM eye exam Discussed with Kit Vaz: Strive for regular exercise (30min most days) and diet (get at least 4-5 servings of fruit and veggies daily, avoid processed foods, increase lean protein intake and decrease carb portions as well as fruit juices, regular soda & desserts). Watch carbs and simple sugars. Check the blood sugar: Dexcom G6. Check the feet daily for skin breakdown and infection. Assessment & Plan (02/28/2024 10:14 AM CDT): Chronic problem. A1c stable as it was 8.8% 10/14/23 and again today. Will increase Mounjaro from 2.5mg to 5mg today. Will start next week. Discussed inpen that she'd been on in the past. Contact info for Carlito at [employer] if she'd like to see about costs/coverage. Current medications: Mounjaro 5mg weekly Tresiba 20 units at bedtime, wants to move back to daytime. Humalog 1:8 with meals plus correction scale 1:25>125 (or per note1:15, 1:50>150 UTD on labs. DM eye exam Discussed with Kit Vaz: Strive for regular exercise (30min most days) and diet (get at least 4-5 servings of fruit and veggies daily, avoid processed foods, increase lean protein intake and decrease carb portions as well as fruit juices, regular soda & desserts). Watch carbs and simple sugars. Check the blood sugar: Dexcom G6. Check the feet daily for skin breakdown and infection. Assessment & Plan (10/14/2023 4:06 PM CDT): Hba1c was Lab Results Component Value Date HGBA1C 8.8 10/14/2023 today, indicating inadequate DM control Goal Hba1c under 7 and blood glucose level in the 120-160 range was explained Low carb diet and daily aerobic and /or resistant exercise were advised Prevention and treatment of hyypoglcyemia were discussed with the patient Blood glucose monitoring : Continue CGM with Dexcom G6 Adjustment to medications: Adjust Tresiba to 20 units bedtime Continue NovoLog a.c. based on an insulin to carb ratio of 15 and correction factor of 50 Restart Mounjaro 2.5 mg weekly Assessment & Plan (03/26/2023 9:41 AM CDT): -Currently using MDI + Dexcom G6 -A1C was 9.7% on 03/26/23 -Dexcom download indicates persistent hyperglycemia. Will increase Tresiba to 24 units daily. Will adjust Novolog to ICR 1:7, correction to 1:35>110 mg/dl. Will also start Mounjaro 2.5 mg weekly. Will follow with her response. -Discussed diet and activity modifications. -Advised to call with any concerns/complaints regarding glucose readings -Eye exam is up to date Assessment & Plan (12/11/2022 10:25 AM CDT): -Currently using Tandem insulin pump and Dexcom with Control IQ -A1C done recently was reportedly in the higher 7s; A1C today on 12/11/22 was 8.1% -Dexcom download indicates that she has been in exercise mode at all times. Exercise mode was turned off. Advised to only use exercise mode with exercise, not on a continual basis. Will continue same pump settings and will follow with her response. -Will DC ozempic per patient request -Discussed diet and activity modifications. -Advised to call with any concerns/complaints regarding glucose readings -Eye exam is up to date Assessment & Plan (2022 12:52 PM AUTO PHONE INSTALLER): -Currently using Tandem insulin pump and Dexcom with Control IQ -A1C on 09/10/22 was 7.95 -She has started a weight loss program and has increased exercise -Dexcom download indicates that she has exercise mode turned on almost all of the time, which she did not realize. Discussed using sleep mode overnight and using exercise mode about an hour before exercise and during exercise. Will continue same pump settings for now. -Discussed diet and activity modifications. -Advised to call with any concerns/complaints regarding glucose readings -Eye exam is up to date Assessment & Plan (04/13/2022 3:54 PM CDT): -Currently using Tandem insulin pump and Dexcom with Control IQ -A1C on 04/13/22 was 8% -The patient is dex com G6 download indicates post meal excursions. Will adjust ICR from 10-->8 and follow with her response. -Will also retry Ozempic at 0.25 mg weekly. Will plan for slower titration to try to achieve better tolerability. -Discussed diet and activity modifications. -Advised to call with any concerns/complaints regarding glucose readings -Eye exam is up to date Assessment & Plan (01/07/2022 11:42 AM CDT): -Currently using Tandem insulin pump and Dexcom with Control IQ -A1C on 01/07/22 was 7.7% - The patient is dex com G6 download indicates variable glucose pattern. Due to the fact that she has been only entering half of her carb amount to prevent hypoglycemia, will adjust her carb ratio from 6.5-->10. Additionally she is noted to have higher glucose readings in the evening. Will add a basal rate of 0.85 units/hour from 5:00 p.m. to 8:00 p.m.. Will follow with her response. -Discussed diet and activity modifications. -Advised to call with any concerns/complaints regarding glucose readings -Eye exam is up to date Assessment & Plan (09/25/2021 11:45 AM CDT): -Currently using Tandem insulin pump and Dexcom with Control IQ -A1C on 09/25/21 was 8% -The patient is dex com G6 download indicates some post meal glucose excursions, likely due to the timing of her boluses. Recommend to focus on bolusing 15 minutes prior to meals. She will update me in 2-3 weeks. If she is still having post- meal excursions, will adjust carb ratio from 6.5-->6. -Discussed diet and activity modifications. -Advised to call with any concerns/complaints regarding glucose readings -Eye exam is up to date Assessment & Plan (06/25/2021 12:34 PM AUTO PHONE INSTALLER): -Currently using Tandem insulin pump and Dexcom with Control IQ -A1C on 06/25/21 was 7.9% -The patient is dex com G6 download indicates some post meal glucose excursions. Discussed adjusting her carb ratio from 1:6.5 --> 1:6. However she states these excursions are most likely due to indiscrete minute eating and she would prefer to work on her eating habits 1st. Therefore will continue same insulin settings at this time and will continue to closely monitor. -Discussed diet and activity modifications. -Advised to call with any concerns/complaints regarding glucose readings -Eye exam is up to date Assessment & Plan (02/03/2019 12:46 PM CDT): The patient has type 1 diabetes, currently using Tresiba and Afrezza for her diabetes management. She is also using a dex com G6. She is noted to have some post meal glucose excursions as well as hyperglycemia overnight. She would like to resume Humalog instead of Afrezza. Will increase her Tresiba from 21 units to 23 units. When she completes her current supply of Afrezza, she will resume Humalog. Discussed option of the in pen device, which she would like to pursue. Prescription was sent. Her settings will be as follows: Insulin carb ratio from midnight to 5:00 p.m. 1 unit for every 8 g carbohydrate, and from 5:00 p.m. To midnight 1 unit for every 10 g carbohydrate, correction of 1 unit to lower 50 points with target glucose of 100 mg/dL. Active insulin time will be 3-1/2 hours. Labs were reviewed from November 01, 2018 and are up-to-date. No labs were ordered at today's visit. Her eye exam is up-to-date. She will follow-up in 3 months. She is advised when she gets the in pen if she needs any help setting up the device to make an appointment with 1 of the educators. Essential hypertension 03/24/2018 Assessment & Plan (03/26/2023 9:42 AM CDT): -BP today is 136/83 -Will continue same antihypertensive medications at this time. Assessment & Plan (12/11/2022 10:24 AM CDT): -BP today is 121/80 -Will continue same antihypertensive medications at this time. Assessment & Plan (2022 12:52 PM AUTO PHONE INSTALLER): -BP today is 133/83 -Will continue same antihypertensive medications at this time. Assessment & Plan (04/13/2022 3:54 PM CDT): -BP today is 119/79 -Will continue same antihypertensive medications at this time. Assessment & Plan (01/07/2022 11:42 AM CDT): -BP today is 118/79 -Will continue same antihypertensive medications at this time. Assessment & Plan (09/25/2021 11:45 AM CDT): -BP today is 115/77 -Will continue same antihypertensive medications at this time. Assessment & Plan (06/25/2021 12:34 PM AUTO PHONE INSTALLER): -BP today is 127/82 -Will continue same antihypertensive medications at this time. Assessment & Plan (07/20/2019 3:58 PM AUTO PHONE INSTALLER): Blood pressure is working/76 today. Continue same medications. Assessment & Plan (02/03/2019 8:10 AM CDT): BP stable. Continue same medications. Abnormal thyroid function test 03/24/2018 [facility] current use of insulin 03/29/2015 Diabetic hypoglycemia 02/11/2006 Resolved Problems Problem Noted Date Diagnosed Date Resolved Date Hypertension associated with type 1 diabetes mellitus 02/23/2024 06/12/2024 Assessment & Plan (06/12/2024 10:46 AM AUTO PHONE INSTALLER): Chronic problem. Normotensive without any antihypertensives. No changes at this time. Assessment & Plan (02/28/2024 10:15 AM CDT): Chronic problem. Normotensive without any antihypertensives. No changes at this time. Snoring 05/12/2018 12/28/2022 Assessment & Plan (09/14/2022 11:08 AM AUTO PHONE INSTALLER): The patient presents with snoring and morning fatigue/tiredness. Per her request, I have ordered a home sleep test and she will follow-up with me in 3 months. Immunizations Immunization Administration Dates Next Due Influenza, Quadrivalent, Quynh l Culture-based MDCK, Preservative Free, Antibiotic Free, Intramuscular 04/25/2020 Influenza, Trivalent, Preservative Free, Intramu scular 06/10/2006,02/11/2006 Pneumococcal Polysaccharide PPV23 06/10/2006 Social History Tobacco Use Types Packs/Day Years Used Date Smoking Tobacco: Former Smokeless Tobacco: Never Comments:Pt smoked 5 cigaret corazon at age 17 Comments Unknown Sex and Gender Information Value Date Recorded Sex Assigned at Not on file Legal Sex Female 2:16 AM AUTO PHONE INSTALLER Gender Identity Not on file Sexual Orientation Not on file Last Filed Vital Signs Vital Sign Reading Time Taken Comments Blood Pressure 110/70 06/12/2024 10:32 AM AUTO PHONE INSTALLER Pulse 94 06/12/2024 10:32 AM AUTO PHONE INSTALLER Temperature 35.9 C (96.6 F) 04/19/2023 2:12 PM CDT Respiratory Rate 16 06/12/2024 10:32 AM AUTO PHONE INSTALLER Oxygen Saturation 99% 04/19/2023 2:12 PM CDT Inhaled Oxygen Concentration - - Weight 84.4 kg (186 lb) 06/12/2024 10:32 AM AUTO PHONE INSTALLER Height 165.1 cm (5' 5 ) 06/12/2024 10:32 AM AUTO PHONE INSTALLER Body Mass Index 30.95 06/12/2024 10:32 AM AUTO PHONE INSTALLER Plan of Treatment Not on file Procedures Procedure Name Priority Date/Time Associated Diagnosis Comments POCT HEMOGLOBIN A1C Routine 06/12/2024 1 0:35 AM AUTO PHONE INSTALLER Type 1 diabetes mellitus with hyperglycemia (HCC) DIABETES EYE EXAM Routine 03/02/2024 9:06 AM CDT EGFR Routine 10/14/2023 3:27 PM CDT Type 1 diabetes mellitus with hyperglycemia (HCC) LIPID PANEL Routine 10/14/2023 3:27 PM CDT Type 1 diabetes mellitus with hyperglycemia (HCC) ALBUMIN CREATININE RATIO, URINE Routine 10/14/2023 3:27 PM CDT Type 1 diabetes mellitus with hyperglycemia (HCC) TSH Routine 10/14/2023 3:27 PM CDT Type 1 diabetes mellitus with hyperglycemia (HCC) from Last 3 Months or Most Recently Relevant to Health Maintenance Results * (ABNORMAL) POCT hemoglobin A1c (06/12/2024 10:35 AM AUTO PHONE INSTALLER) Hemoglobin A1C, POC 9.4 4.0 - 5.6 % Blood 06/12/2024 10:3 5 AM AUTO PHONE INSTALLER us Makenna Eng NP POINT OF CARE TEST ORDERA BLES Final Result * DIABETES EYE EXAM (03/02/2024 9:06 AM CDT) us Historical Provider HEALTH MAINTENANCE Edited Result - Final * eGFR (10/14/2023 3:27 PM CDT) eGFR >90 >=60 mL/min/1. 73 m2 Comment: Interpretive Data Reference Interval Normal >/= 90 mL/min/1.73m2 Mildly decreased* 60 - 89 mL/min/1.73m2 Mildly to moderately decreased 45 - 59 mL/min/1.73m2 Moderately to severely decreased 30 - 44 mL/min/1.73m2 Severely decreased 15 - 29 mL/min/1.73m2 Kidney Failure < 15 mL/min/1.73m2 *Relative to young adult level Estimated glomerular filtration rate is determined by the 2020 CKD-EPI equation recommended by the National Kidney Foundation (A Unifying Approach to GFR Estimation: Recommendations of the NKF-ASK Task Force on Reassessing the Inclusion of Race in Diagnosing Kidney Disease, JASN 2020). The CKD-EPI equation should not be used for patients with unstable renal function and has not been validated in children and those over 70. Current interpretive data was last reviewed 2021. Blood 10/14/2023 3:2 7 PM CDT 10/14/2023 7:55 PM CDT us Delma Askew MD LAB BLOOD ORDERABLES Final Resul t Performing Organization Address [facility] Co de Phone Number KARLEY LOPEZ [phone] [place] [address] * Albumin Creatinine Ratio, Urine (10/14/2023 3:27 PM CDT) Albumin Ur <12.0 mg/L Comment: Interpretive Data No reference range established. Current interpretive data was last revised 2018. Creatinine Ur 29.2 mg/dL KARLEY LOPEZ Comment: Interpretive Data No reference range established. Current interpretive data was last revised 2018. Albumin Creatinine Ratio, Ur See Comment 1 - 29 KARLEY LOPEZ Comment:Unable to calculate Urine 10/14/2023 3:27 PM CDT 10/14/2023 7:34 PM CDT us Delma Askew MD LAB URINE ORDERABLES Final Resul t Performing Organization Address [facility] Co de Phone Number KARLEY LOPEZ [id number] [facility] [place] [address] * TSH (10/14/2023 3:27 PM CDT) Thyroid Stimulating Hormone 2.45 0.30 - 4.20 mcIUnit/mL Blood 10/14/2023 3:27 PM CDT 10/14/2023 7:34 PM CDT us Delma Askew MD LAB BLOOD ORDERABLES Final Resul t [address] [id number] Department [place] [address] * Lipid panel (10/14/2023 3:27 PM CDT) Cholesterol 196 30 - 199 mg/dL Comment: Interpretive Data Ages < or = 19 years Acceptable: <170 mg/dL Borderline high: 170-199 mg/dL High: >or= 200 mg/dL Ages > or = 20 years Desirable: <200 mg/dL Borderline high: 200-239 mg/dL High: >or= 240 mg/dL Literature References: 1. Expert Panel on Integrated Guidelines for Cardiovascular Health and Risk Reduction in Children and Adolescents. Pediatrics 2011;128:S213 2. NCEP Expert Panel. Circulation 2004;110:227 Current Interpretive Data was last revised on 2018. Triglycerides 74 <=149 mg/dL KARLEY LOPEZ Comment: Interpretive Data Ages < or = 9 years Acceptable: <75 mg/dL Borderline high: 75-99 mg/dL High: >or= 100 mg/dL Ages 10 to 20 years Acceptable: <90 mg/dL Borderline high: 90-129 mg/dL High: >or= 130 mg/dL Ages > or = 20 years Desirable: <150 mg/dL Borderline high: 150-199 mg/dL High: 200-499 mg/dL Very high: >or= 499 mg/dL Literature References: 1. Expert Panel on Integrated Guidelines for Cardiovascular Health and Risk Reduction in Children and Adolescents. Pediatrics 2011;128:S213 2. NCEP Expert Panel. Circulation 2004;110:227 Current Interpretive Data was last revised on 2018. HDL 62 >=40 mg/dL KARLEY LOPEZ Comment: Interpretive Data Ages < or = 19 years Acceptable: >45 mg/dL Borderline low: 40-45 mg/dL Low: <40 mg/dL Ages > or = 20 years Desirable: >or= 60 mg/dL Low: <40 mg/dL Literature References: 1. Expert Panel on Integrated Guidelines for Cardiovascular Health and Risk Reduction in Children and Adolescents. Pediatrics 2011;128:S213 2. NCEP Expert Panel. Circulation 2004;110:227 Current Interpretive Data was last revised on 2018. LDL, calculated 119 <=129 mg/dL KARLEY LOPEZ Comment: Interpretive Data Ages < or = 19 years Acceptable: <110 mg/dL Borderline high: 110-129 mg/dL High: >or= 130 mg/dL Ages > or = 20 years Optimal: <100 mg/dL Near optimal: 100-129 mg/dL Borderline high: 130-159 mg/dL High: >160 mg/dL Literature References: 1. Expert Panel on Integrated Guidelines for Cardiovascular Health and Risk Reduction in Children and Adolescents. Pediatrics 2011;128:S213 2. NCEP Expert Panel. Circulation 2004;110:227 Current Interpretive Data was last revised on 2018. Non-HDL Cholesterol 134 mg/dL KARLEY LOPEZ Comment: Interpretive Data Ages < or = 19 years Acceptable: <120 mg/dL Borderline high: 120-144 mg/dL High: >145 mg/dL Ages > or = 20 years When triglycerides are >200 mg/dL, Non-HDL cholesterol is a secondary target of therapy with treatment goals that are 30 mg/dL greater than the LDL cholesterol target. Literature References: 1. Expert Panel on Integrated Guidelines for Cardiovascular Health and Risk Reduction in Children and Adolescents. Pediatrics 2011;128:S213 2. NCEP Expert Panel. Circulation 2004;110:227 Current Interpretive Data was last revised on 2018. Chol/HDL ratio 3 KARLEY LOPEZ Blood 10/14/2023 3:27 PM CDT 10/14/2023 7:34 PM CDT us Delma Askew MD LAB BLOOD ORDERABLES Final Resul t [facility] [id number] Department [place] [address] from Last 3 Months or Most Recently Relevant to Health Maintenance Insurance [facility] [id number] [place] [id number] [facility] [id number] Care Teams Center Aisle Cashier Relationship Specialty Start Date End Date Clayton Priest MD [address] [facility] [address] [place] [address] PCP - General 10/13/16
--- OUTSIDE RECORDS SUMMARY | 2024-09-20 10:23 | XMS_ITS | Clinical Summary ---
Author Organization [facility] [address] Address [address] [place] [address] Care Team Providers Care Nursing Administrator Name Role Phone Clayton Priest MD Primary Care Provider Allergies Active Allergy Reactions Criticality Noted Date Comments Adhesive Other (See comments) Low 06/12/2024 Liberty Oil Anaphylaxis High 05/31/2014 Atorvastatin Swelling,Other (See comments) Medium 2022 Ezetimibe Swelling High 2022 Lisinopril Angioedema High 02/28/2024 Throat swelling Losartan Other (See comments) Low 02/28/2024 Welts in mouth Vpakcbw-Moj-Dhc Reductase Inhibitors Edema High 10/14/2023 Medications blood [...] CHANGE SENSOR EVERY 10 DAYS 9 each 3 4 Active insulin aspart (NovoLOG) 100 unit/mL [...] one nostril as needed (hypoglycemia) 2 each 3 4 Active blood-glucose transmitter (Dexcom G6 Transmitter) deviceIndications :Type 1 diabetes mellitus with hyperglycemia (HCC) CHANGE DEXCOM G6 TRANSMITTER EVERY 90 DAYS 1 each 3 4 Active azelastine (ASTELIN) 137 mcg (0.1 %) nasal spray Administer 2 sprays into each nostril 2 (two) times a day 4 Active triamcinolone (KENALOG) 0.1 % ointment [...] 03/24/2018 Assessment & Plan (06/12/2024 11:17 AM COAL SAMPLER): Chronic problem. A1c uncontrolled & worsened from 8.8% 02/28/24 to now 9.4%. Not adequately giving insulin; fearful of lows (maybe once/mo). Discussed poor control & increasing A1c (uncontrolled). Discussed inpen that she'd been on in the past. Website given for [facility] to contact to see if insurance will [...] the past. Contact info for Carlito at [facility] if she'd like to see about costs/coverage. [...] date Assessment & Plan (2022 12:52 PM COAL SAMPLER): -Currently using Tandem insulin pump and Dexcom [...] date Assessment & Plan (06/25/2021 12:34 PM COAL SAMPLER): -Currently using Tandem insulin pump and Dexcom [...] time. Assessment & Plan (2022 12:52 PM COAL SAMPLER): -BP today is 133/83 -Will continue same [...] time. Assessment & Plan (06/25/2021 12:34 PM COAL SAMPLER): -BP today is 127/82 -Will continue same antihypertensive medications at this time. Assessment & Plan (07/20/2019 3:58 PM COAL SAMPLER): Blood pressure is working/76 today. Continue same medications. Assessment & Plan (02/03/2019 8:10 AM CDT): BP stable. Continue same medications. 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 Normotensive without any antihypertensives. No changes at this time. Assessment & Plan (02/28/2024 10:15 AM CDT): Chronic problem. Normotensive without any antihypertensives. No changes at this time. Snoring 05/12/2018 12/28/2022 Assessment & Plan (09/14/2022 11:08 AM COAL SAMPLER): The patient presents with snoring and morning fatigue/tiredness. Per her request, I have ordered a home sleep test and she will follow-up with me in 3 months. Encounters Date Type Department Care Team Description 06/26/2024 Orders Only [facility] [address] [place] [phone] Makenna Eng, RANDELL 06/26/2024 Orders Only [facility] [address] [place] [phone] Makenna Eng, RANDELL Type 1 diabetes mellitus with hyperglycemia (HCC) (Primary Dx) 06/26/2024 Telephone [facility] [address] [place] [phone] Makenna Eng NP Med Refill 06/22/2024 Orders Only [facility] [address] [place] [phone] Makenna Eng NP 06/22/2024 Telephone [facility] [address] [place] [phone] Makenna Eng NP Forms/questionnaires ([facility]) from Last 3 Months Immunizations Immunization Administration Dates Next Due Influenza, Quadrivalent, Quynh l Culture-based MDCK, Preservative Free, Antibiotic Free, Intramuscular 04/25/2020 Influenza, Trivalent, Preservative Free, Intramu scular 06/10/2006,02/11/2006 Pneumococcal Polysaccharide PPV23 06/10/2006 Surgical History Surgery Date Site/Laterality Comments PLEURAL SCARIFICATION Right DILATION AND CURETTAGE OF UTERUS N/A Medical History Medical History Date Comments Diabetes mellitus type I (HCC) Family History Medical History Relation Name Comments Hypertension Mother Hypertension - (Added by TW Conv) Diabetes type I Other 1 Type I Diabe corazon Mellitus - father and grandparents (Added by TW Conv) Cancer Other 2 Cancer - aunt ( breast) (Added by TW Conv) Stroke Other 3 Stroke Syndrome - (Added by TW Conv) Lupus Other 4 Systemic Lupus Erythematosus - brother and mother (Added by TW Conv) Hypertension Other 5 Hypertension - (Added by TW Conv) Relation Name Status Comments Mother Other 1 Other 2 Other 3 Other 4 Other 5 Social History Tobacco Use Types Packs/Day Years Used Date Smoking Tobacco: Former Smokeless Tobacco: Never Comments:Pt smoked 5 cigaret corazon at age 17 Comments Unknown Sex and Gender Information Value Date Recorded Sex Assigned at Not on file Legal Sex Female 2:16 AM COAL SAMPLER Gender Identity Not on file Sexual Orientation Not on file Obstetrics History Last Filed Vital Signs Vital Sign Reading Time Taken Comments Blood Pressure 110/70 06/12/2024 10:32 AM COAL SAMPLER Pulse 94 06/12/2024 10:32 AM COAL SAMPLER Temperature 35.9 C (96.6 F) 04/19/2023 2:12 PM CDT Respiratory Rate 16 06/12/2024 10:32 AM COAL SAMPLER Oxygen Saturation 99% 04/19/2023 2:12 PM CDT Inhaled Oxygen Concentration - - Weight 84.4 kg (186 lb) 06/12/2024 10:32 AM COAL SAMPLER Height 165.1 cm (5' 5 ) 06/12/2024 10:32 AM COAL SAMPLER Body Mass Index 30.95 06/12/2024 10:32 AM COAL SAMPLER Plan of Treatment Health Maintenance Due Date Last Done Comments Breast Cancer Screening-Mammogram 1973 Cervical Cancer Screening 1973 Colon Cancer Screening-Colonoscopy 1973 Depression Screening 1973 Hepatitis C Screening 1973 DTaP/Tdap/Td Vaccine (1 - Tdap) 1984 Hepatitis B Screening 09/11/1991 Regular Well Visit/Exam 18-64 09/11/1991 Pneumococcal vaccine <65 (2 of 2 - PCV) 06/10/2007 06/10/2006 Zoster Vaccine (1 of 2) 09/11/2023 Covid-19 Vaccine (4 - 2023-2 5 season) 2024 07/21/2021, 12/02/2020, 11/11/2020 Influenza Vaccine (#1) 2024 0, 06/10/2006, 02/11/2006 Albumin Creatinine Ratio, Urine 10/13/2024 4, 04/25/2020 Lipid Panel 10/13/2024 10/14/2023, 08/0 10/2020, 04/25/2020 TSH Level 10/13/2024 10/14/2023, 07/12, 02/12/2021, Additional history exists eGFR 10/13/2024 10/14/2023, 02/12/2021 Hemoglobin A1C 12/11/2024 06/12/2024, 02/09, 10/14/2023, Additional history exists Foot Exam 02/27/2025 02/28/2024 Dilated Eye Exam 03/02/2026 03/02/2024 Procedures Procedure Name Priority Date/Time Associated Diagnosis Comments POCT HEMOGLOBIN A1C Routine 06/12/2024 1 0:35 AM COAL SAMPLER Type 1 diabetes mellitus with hyperglycemia (HCC) [...] (ABNORMAL) POCT hemoglobin A1c (06/12/2024 10:35 AM COAL SAMPLER) Hemoglobin A1C, POC 9.4 4.0 - 5.6 % Blood 06/12/2024 10:3 5 AM COAL SAMPLER us Makenna Eng [facility] POINT OF CARE TEST ORDERA BLES Final Result * DIABETES EYE EXAM (03/02/2024 9:06 AM CDT) Historical Provider HEALTH MAINTENANCE Edited Result - [...] data was last reviewed 2021. Blood 10/14/2023 3:27 PM CDT 10/14/2023 7:55 PM CDT us Delma Askew MD LAB BLOOD ORDERABLES Final Resul t Performing Organization Address City/[facility] Co de Phone Number KARLEY LOPEZ [id number] [place] [address] * Albumin Creatinine Ratio, Urine [...] MD LAB URINE ORDERABLES Final Resul t KARLEY LOPEZ [id number] [facility] [place] [address] * TSH (10/14/2023 3:27 PM CDT) Thyroid Stimulating Hormone 2.45 0.30 - 4.20 mcIUnit/mL Blood 10/14/2023 3:27 PM CDT 10/14/2023 7:34 PM CDT us Delma Askew MD LAB BLOOD ORDERABLES Final Resul t KARLEY [address] [facility] [place] [address] * Lipid panel (10/14/2023 3:27 PM CDT) [...] LAB BLOOD ORDERABLES Final Resul t KARLEY LOPEZ [address] [facility] [place] [address] from Last 3 Months or Most Recently Relevant to Health Maintenance Insurance [facility] [id number] [facility] [id number] [facility] [id number] Care Teams Nursing Administrator Relationship Specialty Start Date End Date Clayton Priest MD [address] [place] [address] PCP - General 10/13/16
== END 2024-09-20 09:34 | disposition home or self-care (01) ==
PROVIDERS: PCP Family Medicine; Visit Provider Obstetrics & Gynecology Gynecology
DX: Z12.31 Encounter for screening mammogram for malignant neoplasm of breast (principal)
CPT/HCPCS: 77063; 77067

== ENCOUNTER 2024-11-02 09:00 | Outpatient (CLI) | payer OTHER, SELFPAY ==
--- NOTE | 2024-11-02 09:00 | ECG_ITS ---
Test Date: 2024-11-02 09:21:30 Measurements Intervals Jackson Rate: 93 P: 72 WV: 156 QRS: 38 QRSD: 73 T: 48 QT: 327 QTc: 408 Interpretive Statements SINUS RHYTHM BASELINE ARTIFACT- I, II, III, AVR, AVL, AVF NORMAL ECG No previous ECG available for comparison Electronically Signed On 11-02-2024 09:34:57 CDT by Titi Grove D.O.
[2024-11-02 09:40] LABS: Anion Gap 9 mmol/L (4-12); Blood Urea Nitrogen 21 mg/dL (7-17); Calcium 9.2 mg/dL (8.4-10.2); Carbon Dioxide 30 mmol/L (22-30); Chloride 102 mmol/L (98-107); Estimated Glomerular Filt Rate > 60; Glucose 149 mg/dL (65-110); Potassium 3.8 mmol/L (3.4-5.0); Sodium 141 mmol/L (137-145)
--- OUTSIDE RECORDS SUMMARY | 2024-11-02 09:42 | XMS_ITS | Data Portability ---
Author Organization [place] [facility] [employer], Main Office Address [address] [place] [address] Care Team Providers Care Iron Caster Name Role Phone MONIE UMANA Primary Care Provider [phone] MONIE UMANA Referring Provider [phone] Assessment Encounter Date Assessment Date Assessment LastModified by Organization Details LastModified Time 03/05/2023 03/05/2023 Impression: Patient has flexor tenosynovitis right thumb. She seems to have a significant propensity for these problems. Diabetes is certainly a risk factor. I have offered her a cortisone injection. She knows these are painful and she would rather see if she can get by without it. She denies any liver kidney problems or peptic ulcer disease. I think we could try ibuprofen for 1 month and see if that helps quite on the inflammation. I have shown her prior stretch exercises to do and she should avoid repetitive pinching. Five ibuprofen 800 mg 3 times a day. This will be for just 1 month. I will see her back if she this does not help. 20 minutes were spent total care this patient more than half the time spent in rcow-lz-eied care. Not available 03/15/2023 19:42:46 06/18/2023 06/18/2023 Patient returns. We gave her cortisone shot for trigger thumb right thumb March 05, 2023. It helped minimally. She tried taking ibuprofen 800 mg at a time and then help either. One night she woke up with excruciating pain in the thumb the thumb locked up in flexion she took ibuprofen ran hot water on it helped a bit. She complains that she can not open jars or door knobs of the right hand and she is right handed. She wants to proceed with trigger finger release for her right thumb. She did very well following open trigger finger release right index finger last year. She has diabetes which may predispose to this. She is on insulin. She is no longer on the insulin pump. She states that she normally stops her baby aspirin prior to any surgical procedures. She has no history of coronary artery disease or cerebrovascular disease. On exam today she had very limited active flexion of the IP joint of the thumb and with passive assistance the thumb triggered was locked and was quite painful. She has moderately severe tenderness over the A1 amadou. There is no redness swelling or warmth he has normal sensation. She does have full active extension of the MP and IP joint of the right thumb. I reviewed risks of surgery with her. We discussed the risk of injury to the digital nerve of the thumb which can leave a numb patch and she has a little bit higher risk for infection because of her diabetes. I explained that the incision is little bit different in shape compared to her other longitudinal incision. We used a wide V incision at the thumb to minimize scarring. she would like to proceed will schedule this for her in the near future. 20 minutes were spent total care this patient more than half the time spent in nuxj-ca-ndry care. Not available 06/18/2023 10:26:01 08/16/2023 08/16/2023 Patient returns. She is 14 the 80s out after A1 amadou release right thumb flexor tendon sheath for trigger thumb. She has had a very quick recovery. Immediately she was able to fully flex the IP joint of her thumb. Her incision is well healed her sutures are removed today. She has normal sensation both halves of the right thumb. She has full active range of motion no catching. 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 She assures me that if the rare occasion that she would have to go out to make an arrest comes up she will bring a colleague with her to do the heavy work. I am happy to see her back if she has further problems. Not available 08/16/2023 13:24:16 Plan of Treatment Reminders Order Date Submit Date Provider Last Modified By Organization Details Last Modified Time Details Appointments None recorded. Lab None recorded. Referral None recorded. Procedures injection/a spiration joint/bursa (PROC) - in office procedure, administere d by provider 2022 023 [email or web address] In-Office Order, Internal Use Only DO Not Attach Compendium DO Not Attach Compendium, Do Not Delete/merge, [id number] 12:06:29 Surgeries None recorded. Imaging XR, hand 2022 023 [email or web address] [facility] [place], [address], [place], [address], 3 10:13:59 Medication Orders Kenalog 10 mg/mL suspension for injection 2022 023 [email or web address] [id number], [address], [place], [place], [id number], 4 12:53:43 ropivacaine (PF) 5 mg/mL (0.5 %) injection solution 2022 023 [email or web address] [facility][id number], [address], [place], [place], [id number], 3 09:55:13 ibuprofen 800 mg tablet 2022 023 [email or web address] [facility]08302, [address], [place], [place], [id number], 4 12:53:38 Patient TargetsNo targets recorded. Patient InstructionsNo instructions recorded. Reason for Referral None Reported. Results Created Date Observation Date Name Description Value Unit Range Abnormal Flag Note LastModifiedBy Organization Detail LastModifiedTime 05/08/20 22 XR, hand, 3 or more view No observ ation record ed. [id number] [facility] [place] [address], [address], 2022 01:01:08 03/05/20 23 XR, hand No observ ation record ed. [email or web address] [facility] [place] [address], [place], [address], 03/05/2023 11:44:26 07/27/19 24 07/26/2023 [email or web address] trujillogr am No observ ation record ed. [email or web address] Not Available 2023 11:57:10 Result Notes None recorded. Problems Name Problem SNOMED Code Status Onset Date Resolution Date Notes Provider Name and Address Organization Details Recorded Time Trigger finger of right hand 7768484645200 9101 Active 2022 Not Available [facility] 3 00:59:51 Pain of left shoulder joint 8601556098465 9109 Active 2021 Not Available [facility] 3 00:59:51 Adhesive capsulitis of left shoulder 1947917348278 07 Active 2021 Not Available [facility] 3 00:59:51 Pain in right hand 0428792503718 09 Active 2021 Not Available [facility] 3 00:59:52 Tenosynovi tis of fingers 069086783 Active 2022 SANA Torres, [place] [facility] 3 09:56:20 Problem Notes None recorded. Procedures Surgical History Date Name Laterality Status Provider Name and Address Organization Details Recorded Time operation on lung completed Not Available [facility] 2022 00:58:32 Imaging Results Imaging Date Name Status LastModified by Organization Details LastModified Time 05/08/2022 XR, hand, 3 or more view completed [id number] [facility] [place] [address], [place], [address], 2022 01:01:08 03/05/2023 XR, hand completed [email or web address] [facility] [place] [address], [place], [address], 03/05/2023 11:44:26 07/26/2023 electrocardiogram completed [email or web address] Informa tion not available 07/27/2023 11:57:10 Procedure Notes None recorded. Medical Equipment None Reported. Allergies Allergen ID Allergen Name Allergen Category Reaction Reaction Severity Criticality Documentation Date Start Date Code Code System Note Provider Name and Address Organization Details Recorded Time 87133 atorvasta tin medicatio n swelling Not available Not available 03/05/2023 20499 RxNorm throa t Dona Heredia MECHANICAL ENGINEERING MANAGER null, [place] [facility] [employer] 3 11:39:33 39941 ezetimibe medicatio n swelling Not available Not available 03/05/2023 74450 8 RxNorm tongu e Dona Heredia, MECHANICAL ENGINEERING MANAGER null, [place] [facility] [employer] [facility] 3 11:39:57 26753 adhesive environme nt,medica tion Not available Not available Not available 03/05/2023 88741 UNK garcia ges Dona Heredia, MECHANICAL ENGINEERING MANAGER null, [facility] [employer] [facility] [employer] 11:43:53 Medications Name Sig Start Date Stop Date Status Note LastModified by Organization Details LastModified Time atorvastati n 40 mg tablet TAKE 1 TABLET BY MOUTH EVERY DAY AT BEDTIME 03/05 completed Not Available Not Available Not Available ibuprofen 800 mg tablet TAKE 1 TABLET BY MOUTH THREE TIMES DAILY 08/16 completed Not Available Not Available Not Available alprazolam 1 mg tablet 06/18 completed Not Available Not Available Not Available hydrocodone 5 mg-acetamin ophen 325 mg tablet TAKE 1 TABLET BY MOUTH EVERY 4 HOURS NEEDED FOR PAIN 08/16 completed Not Available Not Available Not Available prednisone 20 mg tablet TAKE 2 TABLETS BY MOUTH DAILY FOR 5 DAYS 03/05 completed Not Available Not Available Not Available clobetasol 0.05 % topical cream APPLY TO THE AFFECTED AREA ONCE WEEKLY DIRECTED 05/08 completed Not Available Not Available Not Available aspirin 81 mg tablet,ryan yed release TAKE 1 TABLET BY MOUTH EVERY DAY active Not Available Not Available No t Available Kenalog 10 mg/mL suspension for injection in office procedure , administe red by provider 08/16 completed ND: 0003- 0494- 20 Not Available Not Available Not Available clotrimazol e-betametha sone 1 %-0.05 % topical cream APPLY TO THE AFFECTED AREA TWICE DAILY FOR 7 DAYS NEEDED 08/16 completed Not Available Not Available Not Available Novolog U-100 Insulin aspart 100 unit/mL subcutaneou s solution INJECT 60 UNITS VIA INSULIN PUMP ONCE A DAY. active Not Available Not Available No t Available diazepam 10 mg tablet INSERT ONE TABLET VAGINALLY EVERY NIGHT AT BEDTIME FOR 10 DAYS DIRECTED 03/02 completed Not Available Not Available Not Available epinephrine 0.3 mg/0.3 mL injection, auto-inject or INJECT 1 PEN IN THE MUSCLE ONE TIME DIRECTED 08/16 completed Not Available Not Available Not Available cefdinir 300 mg capsule TAKE 1 CAPSULE BY MOUTH EVERY 12 HOURS 08/16 completed Not Available Not Available Not Available lisinopril 2.5 mg tablet active Not Available Not Available Not Available oxycodone 5 mg tablet TAKE 1 TABLET BY MOUTH EVERY 4 HOURS NEEDED FOR PAIN 03/05 completed Not Available Not Available Not Available escitalopra m 10 mg tablet TAKE 1 TABLET BY MOUTH EVERY DAY 03/02 completed Not Available Not Available Not Available ezetimibe 10 mg tablet TAKE 1 TABLET BY MOUTH EVERY DAY 03/05 completed Not Available Not Available Not Available Novolog FlexPen U-100 Insulin aspart 100 unit/mL (3 mL) subcutaneou s 03/05 completed Not Available Not Available Not Available ropivacaine (PF) 5 mg/mL (0.5 %) injection solution in office procedure , administe red by provider 06/18 completed [facility] [phone] Not Available Not Available Not Available Tresiba FlexTouch U-100 insulin 100 unit/mL (3 mL) subcutaneou s pen ADMINISTE R 20 UNITS UNDER THE SKIN DAILY active Not Available Not Available No t Available Linzess 72 mcg capsule TAKE 1 CAPSULE BY MOUTH DAILY active Not Available Not Available No t Available Ozempic 0.25 mg or 0.5 mg (2 mg/1.5 mL) subcutaneou s pen injector INJECT 0.25 MG UNDER THE SKIN WEEKLY FOR 4 WEEKS THEN INCREASE TO 0.5MG 03/05 completed Not Available Not Available Not Available Dexcom G6 Sensor device CHANGE EVERY 10 DAYS active Not Available Not Available No t Available Dexcom G6 Transmitter device CHANGE EVERY 90 DAYS active Not Available Not Available No t Available BD Harriet 2nd Gen Pen Needle 32 gauge x 5/32 USE PEN NEEDLE WITH INSULIN INJECTION FOUR TIMES DAILY active Not Available Not Available No t Available Baqsimi 3 mg/actuatio n nasal spray ADMINISTE R 1 SPRAY IN 1 NOSTRIL NEEDED FOR HYPOGLYCE JEN 08/16 completed Not Available Not Available Not Available Mounjaro 5 mg/0.5 mL subcutaneou s pen injector ADMINISTE R 5 MG UNDER THE SKIN 1 TIME A WEEK 08/16 completed Not Available Not Available Not Available Mounjaro 2.5 mg/0.5 mL subcutaneou s pen injector INJECT 2.5 MG UNDER THE SKIN EVERY 7 DAYS 08/16 completed Not Available Not Available Not Available Ozempic 0.25 mg or 0.5 mg (2 mg/3 mL) subcutaneou s pen injector 03/05 completed Not Available Not Available Not Available Vitals Date Recorded Body height Provider Name an d Address Organization Details Last Updated DateTime 05/08/2022 162.56 cm Not Available [facility] 3 00:59:15 Date Recorded Body height Provider Name an d Address Organization Details Last Updated DateTime 07/29/2022 162.56 cm Not Available [facility] 3 00:59:15 Date Recorded Body height Body mass index (BMI) Body weight Provider Name and Address Organization Details Last Updated DateTime 03/05/2023 167.64 cm 33.1 kg/m2 60581.44 g 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[facility] [employer] 03/05/2023 11:47:21 Date Recorded Body height Provider Name an d Address Organization Details Last Updated DateTime 06/18/2023 167.64 cm SANA Torres [employer] [employer] 06/18/2023 09:54:47 Date Recorded Body height Provider Name an d Address Organization Details Last Updated DateTime 08/16/2023 167.64 cm 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 None [id number] Information not available 2022 Sex: Unknown Functional Status None recorded. Mental Status None recorded. Family History Relationship Description Onset Age of this Age Resolved Age Notes LastModified by Organization Details LastModified Time Maternal Aunt Family history of malignant neoplasm [id number].562 [id number] Not available 2022 00:58:34 Maternal Uncle Family history of malignant neoplasm [id number].312 [id number] Not available 2022 00:58:34 Maternal Uncle Hypertensive disorder MIGRATION.985 [id number] Not available 2022 00:58:34 Mother Hypertensive disorder MIGRATION.360 [id number] Not available 2022 00:58:34 Father Diabetes mellitus MIGRATION.093 [id number] Not available 2022 00:58:34 Maternal Grandfather Diabetes mellitus MIGRATION.092 [id number] Not available 2022 00:58:34 Paternal Grandmother Diabetes mellitus MIGRATION.919 [id number] Not available 2022 00:58:34 Paternal Aunt Family history of malignant neoplasm [email or web address] Not available 2022 11:41:48 Maternal Grandfather Hypertensive disorder [email or web address] Not available 2022 11:42:05 Paternal Grandfather Hypertensive disorder [email or web address] Not available 2022 11:42:09 Paternal Grandfather Diabetes mellitus [email or web address] Not available 2022 11:42:21 Maternal Aunt Family history of stroke [email or web address] Not available 2022 11:42:36 Medical History Condition Response BLINDNESS N KIDNEY STONES N MRSA N CARPAL TUNNEL SYNDROME N LUNG DISEASE/DISORDER N HISTORY OF DRUG ABUSE N RADIATION / CHEMOTHERAPY N COPD N SPORTS INJURY N ANKLE PAIN N BLOOD DISEASES N SCHIZOPHRENIA N SHINGLES N SHOULDER PAIN N DEPRESSION (INCLUDING POST ) N BOWEL PROBLEMS N STROKE/TIA N ULCERS N KNEE PAIN N BENIGN PROSTATIC HYPERPLASIA N OBESITY N GERD/NAUSEA N ANEURYSM N URINARY/BLADDER/KIDNEY PROBLEMS N CORONARY ARTERY DISEASE (CAD) N ADDICTION CONCERNS N USE OF BLOOD THINNERS N SKIN PROBLEMS N EMPHYSEMA N MUSCLE,JOINT OR BONE PROBLEMS N DVT N STOMACH ULCERS N BLOOD CLOTS N USE OF NSAIDS N CONCUSSION OR SPINAL TRAUMA N NEUROPATHY N AIDS/HIV N FRACTURES N HYPERTENSION N ELBOW PAIN N TOURETTE'S N Metal allergy N ANXIETY DISORDER N BLOOD TRANSFUSION N ANEMIA/BLOOD DISORDER N BIPOLAR DISORDER N BRONCHITIS N OSTEOARTHRITIS N TUBERCULOSIS N FOOT PROBLEM N HEART VALVE DISORDERS N ALLERGIES/HAYFEVER N SOFT TISSUE INJURY N INFECTIOUS DISEASE N HEART ARRHYTHMIA N INSOMNIA N HIGH CHOLESTEROL / HYPERLIPIDEMIA N RHEUMATOID ARTHRITIS N EDEMA N CHRONIC PAIN SYNDROME N CAROTID BLOCKAGE N BACK / NECK PROBLEMS N HAVE YOU BEEN HOSPITALIZED OR SEEN IN [facility] ER IN THE PAST YEAR ? N BURSITIS N HERNIATED DISC N DIALYSIS N FIBROMYALGIA N OSTEOPOROSIS N ARTHRITIS N NO SIGNIFICANT PAST MEDICAL HISTORY N PERIPHERAL NEUROPATHY N DIABETES, TYPE Y HEARTBURN / REFLUX N HEPATITIS / LIVER DISEASE N GOUT N ALZHEIMER'S DISEASE N SLEEP DISORDER N HERPES N HEADACHES/MIGRAINES N SEIZURES/EPILEPSY N VASCULAR DISEASE N Blood Disorder N HIP PAIN N DIZZINESS N HEAD TRAUMA OR INJURY N HEART DISEASE/HEART PROBLEMS N MULTIPLE SCLEROSIS N CANCER: SPECIFY N CARDIAC ARRHYTHMIA N ANESTHESIA COMPLICATIONS N ATRIAL FIBRILLATION N AUTOIMMUNE DISEASE N Gynecological HistoryNo gynecological history recorded. Obstetrics History GPAL:G 0 P 0 0 0 0 Past Encounters Encounter ID Performer Location Encounter Start Date Encounter Closed Date Diagnosis/Indication Diagnosis SNOMED-CT Code Diagnosis ICD10 Code Diagnosis Note [id number] [facility] [place] [address] [place] [address] 01/09/2022 00:00:00 01/12/2022 08:34:01 [id number] [facility] [place] [address] [place], [place] [address] 03/02/2022 00:00:00 03/02/2022 14:24:35 [id number] [facility] [place] [address] [place] [address] 05/08/2022 00:00:00 05/08/2022 11:06:40 [id number] [facility] [place] [address] [place] [address] 07/29/2022 00:00:00 07/29/2022 09:02:46 [id number] Gomez Paulino MD [facility] [place] [address] [place] [address] 03/05/2023 10:28:32 03/16/2023 10:13:58 Pain in right hand 3205741588 12221 M79.819 [id number] Gomez Paulino MD [facility] [place] [address] [place] [address] 06/18/2023 09:51:48 06/18/2023 10:32:19 Tenosynovitis of fingers 213047833 M65.290 [id number] Gomez Paulino MD [facility] [place] [address] [place] [address] 08/16/2023 12:47:12 08/16/2023 17:36:19 Pain in right hand 5290695381 79863 M79.641 Postoperative visit 1836 82357 Z48.89 Health Concerns Section Related Observation LastModified by Organization Detai ls LastModified Time None Recorded Concern Status LastModified by Organization Details LastModified Time None Recorded Advance Directives Directive None Recorded Payers Encounter Date Sequence Insurance Name Policy Number Policy Lamas Covered Member ID Lamas Member ID Guarantor Name 03/05/2023 1 [employer] Tayana Long [id number] OI Tayana Long 06/18/2023 1 [employer] Tayana Long [id number] OI Tayana Long 08/16/2023 1 [employer] Tayana Long [id number] OI Tayana Long Notes Date Note Type Note Provider Name and Address Organization Details Recorded Time 03/05/2023 text/html Patient returns. She was last seen in July following right index finger trigger finger release. That has done well. However 3 weeks ago she started having pain at night volar base of the right thumb and snapping. She has tried Aleve which helps somewhat with pain but did not help with stepping. She denies any numbness or tingling. She has had shots in long finger and index finger in the past. 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 Patient has history of insulin-dependent diabetes. She had blood work in 2021 with a elevated sedimentation rate at 37 but normal C-reactive protein and normal rheumatoid factor. Gomez Paulino MD [address] [facility] [address], [place], [address], [facility] [employer] 03/15/2023 19:42:59 OBGyn Episode No OBEpisode recorded.
--- OUTSIDE RECORDS SUMMARY | 2024-11-02 09:42 | XMS_ITS | Referral Summary ---
Author Organization [facility] [address] Address [address] [place] [address] Care Team Providers Care Med Peds Name Role Phone Clayton Priest MD Primary Care Provider Encounters Date Type Department Care Team Description 10/17/[address] [facility] Medical [facility] Diabetes and Endocrinology [address] [place] [phone] ProviderSravan MD 10/11/2024 Telephone [facility] Diabetes and Endocrinology [address] [place] [phone] Makenna Eng NP request for surgical clearance 10/03/2024 Results Follow-Up [facility] Diabetes and Endocrinology [address] [place] [phone] Makenna Eng NP 10/02/2024 3:42 PM CDT - 10/02/2024 11:59 PM CDT Hospital Encounter [address] [address] Type 1 diabetes mellitus with hyperglycemia (HCC) Discharge Disposition: Discharge to home or self care 10/02/2024 3:[address] [facility] Medical [facility] Outpatient Lab at [address] [phone] Type 1 diabetes mellitus (HCC) (Primary Dx); Essential hypertension 10/02/2024 3:00 PM CDT Office Visit [facility] Diabetes and Endocrinology [address] [place] [phone] Makenna Eng, RANDELL Type 1 diabetes mellitus with hyperglycemia (HCC) (Primary Dx) from Last 3 Months Allergies Active Allergy Reactions Criticality Noted Date Comments Adhesive Other (See comments) Low 06/12/2024 Cannelton Oil Anaphylaxis High 05/31/2014 Atorvastatin Swelling,Other (See comments) Medium 2022 Ezetimibe Swelling High 2022 Lisinopril Angioedema High 02/28/2024 Throat swelling Losartan Other (See comments) Low 02/28/2024 Welts in mouth Knchxhm-Cki-Nud Reductase Inhibitors Edema High 10/14/2023 Medications blood glucose diagnostic strip Use Freestyle lite test strip to check blood sugars 4 x a day 150 each 11 0 Active Linzess 72 mcg capsule Take 1 capsule (72 mcg total) by mouth daily 2 Active clobetasoL (TEMOVATE) 0.05 % cream APPLY TO THE AFFECTED AREA ONCE WEEKLY DIRECTED Active insulin aspart (NovoLOG) 100 unit/mL (3 [...] needed (hypoglycemia) 2 each 3 4 Active azelastine (ASTELIN) 137 [...] meals 60 mL 3 4 025 Active pen needle, diabetic 31 gauge x 09/24 needleIndications :Type 1 diabetes mellitus with hyperglycemia (HCC) Use to inject insulin 4 times daily 400 each 3 5 Active blood-glucose sensor (Dexcom G6 Sensor) deviceIndications :Type 1 diabetes mellitus with hyperglycemia (HCC) USE DIRECTED, CHANGE SENSOR EVERY 10 DAYS 9 each 5 Active blood-glucose transmitter (Dexcom G6 Transmitter) deviceIndications :Type 1 diabetes mellitus with hyperglycemia (HCC) CHANGE DEXCOM G6 TRANSMITTER EVERY 90 DAYS 1 each 5 Active Active Problems Problem Noted Date Diagnosed [...] 1 diabetes mellitus 03/24/2018 Assessment & Plan (10/02/2024 3:55 PM CDT): Chronic problem. A1c uncontrolled but improved from 9.4% 06/12/24 to now 8.9%. discussed not over correcting with food or bolus. Reviewed Dexcom download with her at time of appt. She has been running persistently hyperglycemic 2a-1p, 5p-10 -change CR from 8 to 5 -increase Tresiba back to 22 units every morning Current medications: Mounjaro 2.5mg weekly Tresiba 22 units every morning Novolog via inPen CF 60 CR 5 AIT 2.5 UTD on labs. DM eye exam Discussed [...] skin breakdown and infection. Assessment & Plan (06/12/2024 11:17 AM REED POLISHER): Chronic problem. A1c uncontrolled & worsened from 8.8% 02/28/24 to now 9.4%. Not adequately giving insulin; fearful of lows (maybe once/mo). Discussed poor control & increasing A1c (uncontrolled). Discussed inpen that she'd been on in the past. Website given for [employer] to contact to see if insurance will [...] the past. Contact info for Carlito at [employer] if she'd like to see about costs/coverage. [...] date Assessment & Plan (2022 12:52 PM REED POLISHER): -Currently using Tandem insulin pump and Dexcom [...] date Assessment & Plan (06/25/2021 12:34 PM REED POLISHER): -Currently using Tandem insulin pump and Dexcom [...] time. Assessment & Plan (2022 12:52 PM REED POLISHER): -BP today is 133/83 -Will continue same [...] time. Assessment & Plan (06/25/2021 12:34 PM REED POLISHER): -BP today is 127/82 -Will continue same antihypertensive medications at this time. Assessment & Plan (07/20/2019 3:58 PM REED POLISHER): Blood pressure is working/76 today. Continue same medications. Assessment & Plan (02/03/2019 8:10 AM CDT): BP stable. Continue same medications. Abnormal thyroid function test 03/24/2018 custodial current use of insulin 03/29/2015 Diabetic hypoglycemia 02/11/2006 Resolved Problems Problem Noted Date Diagnosed Date Resolved Date Hypertension associated with type 1 diabetes mellitus 02/23/2024 06/12/2024 Assessment & Plan (06/12/2024 10:46 AM REED POLISHER): Chronic problem. Normotensive without any antihypertensives. No changes at this time. Assessment & Plan (02/28/2024 10:15 AM CDT): Chronic problem. Normotensive without any antihypertensives. No changes at this time. Snoring 05/12/2018 12/28/2022 Assessment & Plan (09/14/2022 11:08 AM REED POLISHER): The patient presents with snoring and morning [...] on file Legal Sex Female 2:16 AM REED POLISHER Gender Identity Not on file Sexual Orientation Not on file Last Filed Vital Signs Vital Sign Reading Time Taken Comments Blood Pressure 114/68 10/02/2024 2:47 PM CDT Pulse 80 10/02/2024 2:47 PM CDT Temperature 35.9 C (96.6 F) 04/19/2023 2:12 PM CDT Respiratory Rate 14 10/02/2024 2:47 PM CDT Oxygen Saturation 99% 04/19/2023 2:12 PM CDT Inhaled Oxygen Concentration - - Weight 85.3 kg (188 lb) 10/02/2024 2:47 PM CDT Height 165.1 cm (5' 5 ) 10/02/2024 2:47 PM CDT Body Mass Index 31.28 10/02/2024 2:47 PM CDT Plan of Treatment Not on file Procedures Procedure Name Priority Date/Time Associated Diagnosis Comments HM DIABETES EYE EXAM Routine 10/09/2024 8:56 AM CDT EGFR Routine 10/02/2024 3:42 PM CDT Type 1 diabetes mellitus with hyperglycemia (HCC) LIPID PANEL Routine 10/02/2024 3:42 PM CDT Type 1 diabetes mellitus with hyperglycemia (HCC) ALBUMIN CREATININE RATIO, URINE Routine 10/02/2024 3:42 PM CDT Type 1 diabetes mellitus with hyperglycemia (HCC) COMPREHENSIVE METABOLIC PANEL Routine 10/02/2024 3:42 PM CDT Type 1 diabetes mellitus with hyperglycemia (HCC) POCT GLUCOSE Routine 10/02/2024 2:49 PM CDT Type 1 diabetes mellitus with hyperglycemia (HCC) POCT HEMOGLOBIN A1C Routine 10/02/2024 2 :49 PM CDT Type 1 diabetes mellitus with hyperglycemia (HCC) TSH Routine 10/14/2023 3:27 PM CDT Type 1 diabetes mellitus with hyperglycemia (HCC) from Last 3 Months or Most Recently Relevant to Health Maintenance Results * DIABETES EYE EXAM (10/09/2024 8:56 AM CDT) Historical Provider HEALTH MAINTENANCE Final Result * eGFR (10/02/2024 3:42 PM CDT) eGFR >90 >=60 mL/min/1. 73 [...] of Race in Diagnosing Kidney Disease, JASN 202). The CKD-EPI equation should not be used for patients with unstable renal function and has not been validated in children and those over 70. Current interpretive data was last reviewed 2021. Blood 10/02/2024 3:42 PM CDT 10/03/2024 10:32 AM CDT Makenna Eng NP LAB BLOOD ORDERABLES Bianka l Result Performing Organization Address [facility] Co de Phone Number KARLEY [address] Department [place] [address] * Albumin Creatinine Ratio, Urine (10/02/2024 3:42 PM CDT) Albumin Ur <12.0 mg/L Comment: Interpretive Data No reference range established. Current interpretive data was last revised 2018. Creatinine Ur 34.8 mg/dL KARLEY LOPEZ Comment: Interpretive Data No reference range established. Current interpretive data was last revised 2018. Albumin Creatinine Ratio, Ur See Comment 1 - 29 KARLEY Comment:Unable to calculate Urine 10/02/2024 3:42 PM CDT 10/03/2024 10:18 AM CDT us Makenna Eng CIRCUS AGENT LAB URINE ORDERABLES Bianka l Result Performing Organization Address [facility] de Phone Number KARLEY [address] Department [place] [address] * Lipid panel (10/02/2024 3:42 PM CDT) Cholesterol 182 30 - 199 mg/dL Comment: Interpretive Data [...] Data was last revised on 2018. Triglycerides 53 <=149 mg/dL KARLEY LOPEZ Comment: Interpretive Data [...] Data was last revised on 2018. HDL 63 >=40 mg/dL KARLEY LOPEZ Comment: Interpretive Data [...] was last revised on 2018. LDL, calculated 109 <=129 mg/dL KARLEY LOPEZ Comment: Interpretive Data Ages < or = 19 years Acceptable: <110 mg/dL Borderline high: 110-129 mg/dL High: >or= 130 mg/dL Ages > or = 20 years Optimal: <100 mg/dL Near optimal: 100-129 mg/dL Borderline high: 130-159 mg/dL High: >160 mg/dL Calculated using the Dawson LDL-C estimating equation. This equation was implemented on 2024. Prior to this date LDL-C was estimated using the Friedewald equation. Literature References: 1. Expert Panel on Integrated Guidelines for Cardiovascular Health and Risk Reduction in Children and Adolescents. Pediatrics 2011;128:S213 2. NCEP Expert Panel. Circulation 2004;110:227 3. Dawson Joe al. PHIL Cardiol. 2020 November 09;5(5):540-548. doi: 10.1001/jamacardio.2020.0013 Current Interpretive Data was last revised on 2024. Non-HDL Cholesterol 119 mg/dL KARLEY LOPEZ Comment: Interpretive Data Ages [...] last revised on 2018. Chol/HDL ratio 3 CERNER CH Blood 10/02/2024 3:42 PM CDT 10/03/2024 10:18 AM CDT us Makenna Eng NP LAB BLOOD ORDERABLES Bianka l Result [facility] [address] Department [place] [address] * (ABNORMAL) Comprehensive metabolic panel (10/02/2024 3:42 PM CDT) Sodium 140 135 - 145 mmol/L Potassium, pl 4.3 3.3 - 4.9 mmol/L CERNER CH Chloride 103 97 - 110 mmol/L CERNER CH CO2 28 22 - 32 mmol/L CERNER CH Anion gap 9 2 - 15 mmol/L CERNER CH BUN 15 6 - 25 mg/dL CERNER CH Creatinine 0.71 0.60 - 1.10 mg/dL CERNER CH Glucose 111 70 - 199 mg/dL CERNER CH Comment: Interpretive Data Fasting glucose >/= 126 mg/dl is diagnostic for diabetes. Fasting is defined as no caloric intake for at least 8 hours. Fasting glucose between 100 mg/dl to 125 mg/dl is diagnostic of prediabetes. In a patient with classic symptoms of hyperglycemia or hyperglycemic crisis, a random glucose >/= 200 mg/dl is diagnostic for diabetes. In the absence of unequivocal hyperglycemia, results should be confirmed by repeat testing. The classification and Diagnosis of Diabetes Diabetes Care 2021; 46: S19-S40. Current interpretive data was last revised 2022. Calcium 9.6 8.5 - 10.3 mg/dL CERNER CH Bilirubin, total 0.3 0.1 - 1.2 mg/dL CERNER CH Protein, pl 8.1 6.5 - 8.5 g/dL CERNER CH Albumin 4.3 3.5 - 5.0 g/dL CERNER CH Alk phos 132(H) 40 - 130 Units/L CERNER CH ALT 18 7 - 45 Units/L CERNER CH AST 18 10 - 45 Units/L CERNER CH Blood 10/02/2024 3:42 PM CDT 10/03/2024 10:18 AM CDT us Makenna Eng NP LAB BLOOD ORDERABLES Bianka l Result [facility] [address] [place] [address] * (ABNORMAL) POCT hemoglobin A1c (10/02/2024 2:49 PM CDT) Hemoglobin A1C, POC 8.9 4.0 - 5.6 % Blood 10/02/2024 2:49 PM CDT us Makenna Eng NP POINT OF CARE TEST ORDERA BLES Final Result * (ABNORMAL) POCT glucose (10/02/2024 2:49 PM CDT) Glucose Blood, POC 148 mg/dL Blood 10/02/2024 2:49 PM CDT us Makenna Eng NP POINT OF CARE TEST ORDERA BLES Final Result * TSH (10/14/2023 3:27 PM CDT) Thyroid Stimulating Hormone 2.45 0.30 - 4.20 mcIUnit/mL Blood 10/14/2023 3:27 PM CDT 10/14/2023 7:34 PM CDT us Delma Askew MD LAB BLOOD ORDERABLES Final Resul t KARLEY JOHN [address] [place] [address] from Last 3 Months or Most Recently Relevant to Health Maintenance Insurance [employer] [id number] [id number] [facility] [id number] Care Teams Med Peds Relationship Specialty Start Date End Date Clayton Priest MD [address] [place] [address] PCP - General 10/13/16
--- OUTSIDE RECORDS SUMMARY | 2024-11-02 09:42 | XMS_ITS | Encounter Summary ---
Author Organization [facility] Address [address] [place] [address] Care Team Providers Care Bush And Vine Farmer Fruit Crops Name Role Phone Clayton Priest MD Primary Care Provider Encounter Details Date Type Department Care Team (Late st Contact Info) Description 10/20/2016 Orders Only [facility] ProviderSravan MD [address] [place] [address] Social History Tobacco Use Types Packs/Day Years Used Date Smoking Tobacco: Former Comments Unknown Sex and Gender Information Value Date Recorded Sex Assigned at Not on file Legal Sex Female 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
--- OUTSIDE RECORDS SUMMARY | 2024-11-02 09:42 | XMS_ITS ---
Author Organization [facility] [place] ([address]) Address [address] [place] [address] Care Team Providers Care Technical Training Instructor Name Role Phone Clayton Priest MD Primary Care Provider Briseyda Mcguire Unavailable [phone] Allergies Allergen (clinical drug ingredient) Drug/Non Drug [...] Problem Allergic rhinitis caused by pollen (disorder) (74649504) Allergic rhinitis due to pollen (J30.1) Active confirmed Problem Allergic rhinitis caused by animal hair and dander (176532439109226) Allergic rhinitis due to animal (cat) (dog) hair and dander (J30.81) Active confirmed Problem Allergic rhinitis (94754447) Other allergic rhinitis (J30.89) Active confirmed Problem Chronic allergic conjunctivitis (47117292) Other chronic allergic conjunctivitis (H10.45) Active confirmed Problem Food allergy (409771234) Allergy to other foods (Z91.018) Active confirmed Vital Signs Blood pressure systolic 125 mm Hg 05/09/20 24 Blood pressure diastolic 77 mm Hg 024 Height 65 in 05/09/2024 Weight 184.8 lbs 05/09/2024 BMI 30.75 kg/m2 05/09/2024 Oximetry 100 % 05/09/2024 Encounters Encounter Location Date Provider Diagnosis [facility] [address] [address] 05/09/2024 Briseyda Moon Dermatitis due to ingested [...] pollens. Allergic rhinitis due to pollen Given history and symptoms, skin testing was performed [...] testing in 2022. Dermatitis, unspecified she is developin g local reactions from Mounjaro and recommend applying [...] to; Veronica; Sahil, White; Beech; Birch; Black Hickman; Auburn; Whiting; Vermilion (Eastern); Elm; Duenweg (Shagbark); Maple; Thorndale Mix; [place] Mix; [place] (Red); [place] (White); [place] (Yellow); Sweet Gum; Glen [place] (Monegasque); Raleigh (Black); Bermuda; Brome; Fescue, Red/Hurley; William; K. Blue (December); Orchard; Redtop; Saint David; Lenny; Cocklebur; Dock, Red (Sheep [place]); Dock, Yellow; Hemp, Nicki Water; Kochia; Cutler's Quarter; Brush Elder (Rough); Mugwort; Nettle; Pigweed, Spiny/Rough; Plantain, Irish; Cat Hair; Cat Pelt; UF Dog; Ragweed Mix; Slovak Thistle; Saxonburg; Alternaria; Bortytis Cinerea; positive and negative controls responded appropriately Progress Notes * Kit RIDLEYDOB:1975 ( 48 yo F)Acc No.[id number]:05/09/2024 Progress Notes Patient: Kit LEWIS Provider: Kaleb Moon MD :1975 A ge:48 Y S ex:Female Date:05/09/2024 Address:[address] [place] [address] Pcp:Clayton Priest MD Subjective: * Chief Complaints: [...] She is applying hydrocortisone cream, Vaseline and [place] Butter with some improvement. She is currently [...] the rash last? If you were to wy[place] one spot with a pen, how long [...] o H ave you previously seen an bullet charging machine operator for evaluation of possible food allergy? Y [...] H ave you been evaluated by an bullet charging machine operator previously for possible drug allergy? N o [...] of carpet? 1 0 Do you have [id number]-[id number] carpeting? Y es What is the age [...] to; Veronica; Sahil, White; Beech; Birch; Black Hickman; Auburn; Whiting; Vermilion (Eastern); Elm; Duenweg (Shagbark); Maple; Thorndale Mix; Put[place] Mix; [place] (Red); [place] (White); [place] (Yellow); Sweet Gum; Glen Echo (Monegasque); Raleigh (Black); Bermuda; Brome; Fescue, Red/Hurley; William; K. Blue (December); Orchard; Redtop; Saint David; Lenny; Cocklebur; Dock, Red (Sheep [place]); Dock, Yellow; Hemp, Nicki Water; Kochia; Cutler's Quarter; Brush Elder (Rough); Mugwort; Nettle; Pigweed, Spiny/Rough; Plantain, Irish; Cat Hair; Cat Pelt; UF Dog; Ragweed Mix; Slovak Thistle; Saxonburg; Alternaria; Bortytis Cinerea; positive and negative controls responded appropriately. * Procedure Codes: 9 5004 PRICK TESTS, Units: 72.00 67751 PT-FOCUSED [facility] RISK TPOCRA6580 DOC MEDS VERIFIED W/PT OR RE * [...] Management) * Billing Information: * Visit Code: 22659 Office Visit, New Pt., Level 4. Modifiers: 25 * Procedure Codes: 07107 PRICK TESTS. Units: 72.00. 58839 PT-FOCUSED [facility] RISK ASSMT. G8427 DOC MEDS VERIFIED W/PT OR RE. Images * mobile_05/09/2024 10:19:46 * Sign off status: Completed true * Provider: Kaleb Moon MD Date: 1 Generated for Jackeline dawson/Agapito/eTransmitting on: 0 11/02/2024 09:41 AM CDT History and Physical Notes * [...] She is applying hydrocortisone cream, Vaseline and [place] Butter with some improvement. She is currently [...] the rash last? If you were to [place] one spot with a pen, how long [...] this rash?: Yes What type of physician?: Color Making Supervisor What tests were performed?: airborne allergy skin [...] Have you been evaluated by a n bullet charging machine operator previously for possible drug allergy?: No *Stinging [...] reaction(s)?: No Have you previously seen an bullet charging machine operator for evaluation of possible food allergy?: Yes [...]
--- OUTSIDE RECORDS SUMMARY | 2024-11-02 09:42 | XMS_ITS ---
Author Organization [facility] [place] ([address]) Address [address] [place] [address] Care Team Providers Care Hide Measuring Machine Operator Name Role Phone Clayton Priest MD Primary Care Provider Unavaila Briseyda Perez Unavailable [phone] REASON FOR VISIT Rx Medications Medication SIG (Take, Route, Frequency, Duration) Notes Start Date End Date Status Azelastine HCl 137 MCG/SPRAY 2 sprays in each nostril Nasally Twice a day for 30 days 05/09/2024 Active Triamcinolone Acetonide 0.1 % 1 application Externally Twice a day for 30 days 05/09/2024 Active Encounters Encounter Location Date Provider Diagnosis [facility] [address] [place] [address] 09/18/2024 Briseyda Moon Allergic rhinitis due to [...] for 30 days 05/09/2024 Progress Notes * Gian RIDLEYgoldDOB:1975 ( 49 yo F)Acc No.[id number]:09/18/2024 Patient: Kit LEWIS :1975 A ge:49 Y S ex:Female Address:[address] [place] [address], [address] * Refills Refill Azelastine HCl Solution, 137 MCG/SPRAY, Nasally, 1, 2 sprays in each nostril, Twice a day, 30 days, Refills=0 Refill Triamcinolone Acetonide Ointment, 0.1 %, Externally, 454, 1 application, Twice a day, 30 days, Refills=0 * true * Date: Generated for Jackeline dawson/Agapito/Andreinaitting on: 0 11/02/2024 09:42 AM CDT
--- OUTSIDE RECORDS SUMMARY | 2024-11-02 09:42 | XMS_ITS ---
Author Organization [facility] [place] ([address]) Address [address] [place] [address] Care Team Providers Care Gauger Chief Name Role Phone Cem LERNER, Clayton Primary Care Provider Unavaila Briseyda Perez Unavailable [phone] REASON FOR VISIT ARC follow-up Encounters Encounter Location Date Provider Diagnosis [facility] [address] [place] [address] 06/07/2024 Briseyda Moon Plan Of Treatment No Information Progress Notes * Kit RIDLEYDOB:1975 ( 49 yo F)Acc No.[id number]:06/07/2024 Progress Notes Patient: Kit LEWIS Provider: Kaleb Moon MD :1975 A ge:48 Y S ex:Female Date:06/07/2024 Address:[address] [place], [place] [phone] Pcp:Clayton Priest MD Subjective: * Chief Complaints: * 1 . ARC follow-up. * Medical History: Objective: * Vitals: Assessment: Plan: * Treatment: * Billing Information: * Visit Code: * Procedure Codes: * Electronic signature of Cadence Moon MD on 11/02/2024 at 09:42 AM CDT Sign off status: Pending * Provider: Kaleb Moon MD Date: 08/07/2023 Generated for Jackeline dawson/Agapito/Linda on: 0 11/02/2024 09:42 AM JENNIFERT
--- OUTSIDE RECORDS SUMMARY | 2024-11-02 09:42 | XMS_ITS | Clinical Summary ---
Author Organization [facility] Address [address] [place] [address] Care Team Providers Care Repair Operator Name Role Phone Unavailable Primary Care Provider [...] Screening with HPV 09/11/2003 Mammogram Screening 2013 Pneumococcal Vaccine: 50+ Ye ars (1 of 1 - PCV) 09/11/2023 Zoster Vaccines (1 of 2) 09/11/2023 COVID-19 Vaccine ( - 2023-2 5 season) 2024 Meningococcal B Vaccine Aged Out No l onger eligible based on patient's age to complete this topic Meningococcal Vaccine Aged Out No chante alpa eligible based on patient's age to complete this topic RSV Immunizations Under 20 Months Aged Out No longer eligible based on patient's age to complete this topic
--- OUTSIDE RECORDS SUMMARY | 2024-11-02 09:42 | XMS_ITS | Patient Health Record ---
Author Organization [facility] [place] ([address]) Address [address] [place] [address] Care Team Providers Care Director Business Development Name Role Phone Clayton Priest MD Primary Care Provider Briseyda Mcguire Unavailable [phone] Allergies Allergen (clinical drug ingredient) Drug/Non Drug [...] Status Risk Notes Problem Chronic allergic conjunctivitis (86301871) Other chronic allergic conjunctivitis (H10.45) Active confirmed Problem Allergic rhinitis caused by pollen (disorder) (12159652) Allergic rhinitis due to pollen (J30.1) Active confirmed Problem Allergic rhinitis (54400982) Other allergic rhinitis (J30.89) Active confirmed Problem Food allergy (900765897) Allergy to other foods (Z91.018) Active confirmed Problem Allergic rhinitis caused by animal hair and dander (129089874354512) Allergic rhinitis due to animal (cat) (dog) hair and dander (J30.81) Active confirmed Vital Signs Oximetry 100 % 05/09/2024 Blood pressure diastolic 77 mm Hg 05/09/2024 Height 65 in 05/09/2024 Blood pressure systolic 125 mm Hg 05/09/2024 Weight 184.8 lbs 05/09/2024 BMI 30.75 kg/m2 05/09/2024 Encounters Encounter Location Date Provider Diagnosis [facility] [address] [place] [address] 05/09/2024 Briseyda Moon Dermatitis due to ingested [...] to cosmetics L23.2 and Dermatitis, unspecified L30.9 [facility] [address] [place] [address] 09/18/2024 Briseyda Moon Allergic rhinitis du e [...] Coverage End Date [employer] [address] [place] [address] [id number] I [id number] Kit Vaz Self - patient is the insured 4 Medical (General) History Medical History History ICD Code Type I diabetes Surgical History Surgery Date(Month/Year) Collapsed lung Endometriosis
--- OUTSIDE RECORDS SUMMARY | 2024-11-02 09:42 | XMS_ITS | Clinical Summary ---
Author Organization [facility] [address] Address [address] [place] [address] Care Team Providers Care Dermatology Technician Name Role Phone Clayton Priest MD Primary Care Provider Allergies Active Allergy Reactions Criticality Noted Date Comments Adhesive Other (See comments) Low 06/12/2024 [place] Oil Anaphylaxis High 05/31/2014 Atorvastatin Swelling,Other (See comments) Medium 2022 Ezetimibe Swelling High 2022 Lisinopril Angioedema High 02/28/2024 Throat swelling Losartan Other (See comments) Low 02/28/2024 Welts in mouth Crifnth-Gij-Vtw Reductase Inhibitors Edema High 10/14/2023 Medications blood [...] SENSOR EVERY 10 DAYS 9 each 3 5 Active blood-glucose transmitter (Dexcom G6 Transmitter) [...] infection. Assessment & Plan (06/12/2024 11:17 AM EMERGENCY MEDICAL DISPATCHER): Chronic problem. A1c uncontrolled & worsened from 8.8% 02/28/24 to now 9.4%. Not adequately giving insulin; fearful of lows (maybe once/mo). Discussed poor control & increasing A1c (uncontrolled). Discussed inpen that she'd been on in the past. Website given for [email or web address] to contact to see if insurance will [...] the past. Contact info for Carlito at [employer] if she'd like to see about costs/coverage. Current medications: Mounjaro 5mg weekly Tresiba 20 units at bedtime, wants to move back to daytime. Humalog 1:8 with meals plus correction scale 1:25>125 (or per note1:15, 1:50>150 UTD on labs. DM eye exam Discussed with Tayana Delece Long: Strive for regular exercise (30min most days) [...] date Assessment & Plan (2022 12:52 PM EMERGENCY MEDICAL DISPATCHER): -Currently using Tandem insulin pump and Dexcom [...] date Assessment & Plan (06/25/2021 12:34 PM EMERGENCY MEDICAL DISPATCHER): -Currently using Tandem insulin pump and Dexcom [...] time. Assessment & Plan (2022 12:52 PM EMERGENCY MEDICAL DISPATCHER): -BP today is 133/83 -Will continue same [...] time. Assessment & Plan (06/25/2021 12:34 PM EMERGENCY MEDICAL DISPATCHER): -BP today is 127/82 -Will continue same antihypertensive medications at this time. Assessment & Plan (07/20/2019 3:58 PM EMERGENCY MEDICAL DISPATCHER): Blood pressure is working/76 today. Continue same medications. Assessment & Plan (02/03/2019 8:10 AM CDT): BP stable. Continue same medications. 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 Normotensive without any antihypertensives. No changes at this time. Assessment & Plan (02/28/2024 10:15 AM CDT): Chronic problem. Normotensive without any antihypertensives. No changes at this time. Snoring 05/12/2018 12/28/2022 Assessment & Plan (09/14/2022 11:08 AM EMERGENCY MEDICAL DISPATCHER): The patient presents with snoring and morning fatigue/tiredness. Per her request, I have ordered a home sleep test and she will follow-up with me in 3 months. Encounters Date Type Department Care Team Description 10/17/2024 Orders Only [facility] Medical [facility] Diabetes and Endocrinology [address] [place] [phone] ProviderSravan MD 10/11/2024 Telephone [facility] Diabetes and Endocrinology [address] [place] [phone] Makenna Eng NP request for surgical clearance 10/03/2024 Results Follow-Up [facility] Diabetes and Endocrinology [address] [place] [phone] Makenna Eng NP 10/02/2024 3:45 PM CDT Lab [facility] Medical [facility] Outpatient Lab at [address] [phone] Type 1 diabetes mellitus (HCC) (Primary Dx); Essential hypertension 10/02/2024 3:42 PM CDT - 10/02/2024 11:59 PM CDT Hospital Encounter [address] [address] Type 1 diabetes mellitus with hyperglycemia (HCC) Discharge Disposition: Discharge to home or self care 10/02/2024 3:00 PM CDT Office Visit [facility] Diabetes and Endocrinology [address] [place] [phone] Makenna Eng, RANDELL Type 1 diabetes mellitus with hyperglycemia (HCC) (Primary Dx) from Last 3 Months Immunizations Immunization Administration [...] on file Legal Sex Female 2:16 AM EMERGENCY MEDICAL DISPATCHER Gender Identity Not on file Sexual Orientation [...] 10/02/2024 2:47 PM CDT Plan of Treatment Health Maintenance Due Date [...] 2023-2 5 season) 2024 07/21/2021, 12/02/2020, 11/11/2020 TSH Level 10/13/2024 10/14/2023, 07/12, 02/12/2021, Additional history exists Foot Exam 02/27/2025 02/28/2024 Influenza Vaccine (Season Ended) 2025 04/25/2020, 06/10/2006, 02/11/2006 Hemoglobin A1C 04/04/2025 10/02/2024, 12/0 08/2023, 02/28/2024, Additional history exists Albumin Creatinine Ratio, Urine 10/02/2025 10/02/2024, 10/14/2023, 04/25/2020 Lipid Panel 10/02/2025 10/02/2024, 04/0 10/2023, 02/12/2021, Additional history exists eGFR 10/02/2025 10/02/2024, 04/0 10/2023, 02/12/2021 Dilated Eye Exam 10/09/2026 10/09/2024, 03/02/2024 Procedures Procedure Name Priority Date/Time Associated [...] CDT 10/03/2024 10:32 AM CDT Makenna Eng ABRASIVES SALES REPRESENTATIVE LAB BLOOD ORDERABLES Bianka l Result Performing Organization Address [facility] Co de Phone Number KARLEY [address] [address] [facility] [place] [address] * Albumin Creatinine Ratio, Urine (10/02/2024 3:42 PM CDT) Albumin Ur <12.0 mg/L Comment: Interpretive Data No reference range established. Current interpretive data was last revised 2018. Creatinine Ur 34.8 mg/dL KARLEY Comment: Interpretive Data No reference range established. Current interpretive data was last revised 2018. Albumin Creatinine Ratio, Ur See Comment 1 - 29 KARLEY Comment:Unable to calculate Urine 10/02/2024 3:42 PM CDT 10/03/2024 10:18 AM CDT us Makennaharsh Eng ABRASIVES SALES REPRESENTATIVE LAB URINE ORDERABLES Bianka l Result Performing Organization Address [facility] de Phone Number KARLEY [address] [address] [facility] [place] [address] * Lipid panel (10/02/2024 3:42 PM CDT) [...] on 2018. Triglycerides 53 <=149 mg/dL KARLEY Comment: Interpretive Data Ages < or = [...] on 2018. HDL 63 >=40 mg/dL KARLEY Comment: Interpretive Data Ages < or = [...] 2018. LDL, calculated 109 <=129 mg/dL KARLEY Comment: Interpretive Data Ages < or = [...] on 2024. Non-HDL Cholesterol 119 mg/dL KARLEY Comment: Interpretive Data Ages < or = [...] Makenna Eng NP LAB BLOOD ORDERABLES Bianka leon Result [facility] [address] Department [place] [address] * (ABNORMAL) Comprehensive metabolic panel (10/02/2024 3:42 PM CDT) Sodium 140 135 - 145 mmol/L Potassium, pl 4.3 3.3 - 4.9 mmol/L [facility] Chloride 103 97 - 110 mmol/L [facility] CO2 28 22 - 32 mmol/L [facility] Anion gap 9 2 - 15 mmol/L [facility] BUN 15 6 - 25 mg/dL [facility] Creatinine 0.71 0.60 - 1.10 mg/dL [facility] Glucose 111 70 - 199 mg/dL [facility] Comment: Interpretive Data Fasting glucose >/= 126 [...] Calcium 9.6 8.5 - 10.3 mg/dL [facility] Bilirubin, total 0.3 0.1 - 1.2 mg/dL [...] NP LAB BLOOD ORDERABLES Bianka l Result [facility] [address] Department [place] [address] * (ABNORMAL) POCT hemoglobin A1c (10/02/2024 2:49 [...] LAB [place]LOOD [place] [address] [address] [place] [address] from Last 3 Months or Most Recently Relevant to Health Maintenance Insurance [facility] [id number] [facility] [id number] [facility] [id number] Care Teams Dermatology Technician Relationship Specialty Start Date End Date Clayton Priest MD [address] [place] [address] PCP - General 10/13/16
== END 2024-11-02 09:01 | disposition home or self-care (01) ==
LOC: ANHSURGERY 09:03
PROVIDERS: Anesthesiology; PCP Family Medicine; Visit Provider Obstetrics & Gynecology Gynecology
DX: E10.9 Type 1 diabetes mellitus without complications (principal); Z01.818 Encounter for other preprocedural examination
CPT/HCPCS: 36415; 80048; 93005

== ENCOUNTER 2024-11-06 00:49 | Day surgery (SDC) | payer OTHER, SELFPAY ==
[2024-10-30 15:34] VITALS: BMI 30.2
--- NOTE | 2024-10-30 16:01 | PC.NURSE ---
Report to the Outpatient Waiting Room, entrance under the green pavilion located off [facility], at time ___0830___ on date __11/06/24__. Planned Procedure Time: _1030_.? Time changes happen often and if your time is changed the preop area will call you the afternoon before. - You and your visitor will be asked to self-screen and do not enter if you have any COVID symptoms. Please call surgeon if you need to reschedule. - A mask is optional within the hospital at this time. Patients may have clear liquids (water, carbonated beverages, clear teas, apple juice) until 3 hours prior to surgery with a maximum of 20 ounces. - No food from midnight until time of surgery and no smoking, or chewing tobacco (or any form of nicotine). No chewing gum, candy or mints. Take only the following medications with a SIP of water on the morning of surgery: ___none____ Diabetic Instructions: 1. Evening before surgery: ? No change in basal insulin dosage (NPH, Lantus) ? No change in pre-mix insulin dosage (70/30 or 75/25) ? No additional short-acting insulin at bedtime (Humalog/Novolog or Regular) 2. Morning of Surgery ? Hold all oral anti-diabetic agents ? For early A M. surgery, hold insulin ? For surgery scheduled after 1100, instruct patient to take 1/2 a.m insulin dose 3. Patients on Insulin Pumps ? Continue usual basal rate unless patient has very tight control or history of hypoglycemia, then suggest decrease basal rate by 0.1-0.2 units/hour. Do not instruct patient to discontinue insulin pump. DO NOT STOP ANY OF YOUR OTHER PRESCRIPTION MEDICATIONS PRIOR TO SURGERY EXCEPT THE FOLLOWING Hold all vitamins and supplements for 3 days per anesthesiologist. Please no make-up, nail azerbaijani, hairspray, perfume, deodorant, or body powder the day of surgery.? No jewelry (including any body piercings) or valuables the day of surgery, leave them at home.? Please take a shower or bath the night before, or the morning of, surgery with an antibacterial soap.? Wear comfortable, loose fitting clothing.? - Jewelry must be removed prior to entering the operating room.? Rings and piercings that are not removed may be cut off. - The hospital will not accept responsibility for valuables.? - Please leave all valuables, including medications, at home the day of surgery. If you are going home after surgery, a licensed driver manager must drive you home.? - NO public transportation without another adult if you receive anesthesia. - We recommend that an adult stay with you for 24 hours following discharge. - We also recommend that you do not drive, make important decision, drink alcoholic beverages, or take any drugs that were not prescribed by your health care provider for at least 24 hours after your discharge time. Follow any additional instructions given to you from your surgeon. Telephone instructions given to ____iKt____and asked if any additional questions and then verbalized understanding. Patient advised to call surgeon office or pre surgery nurse liaison [phone] if any additional questions.
[2024-11-06] VITALS (11 sets, daily range): BP systolic 92–137; BP diastolic 66–90; PULSE 58–88; RESP 12–20; TEMP 36.1–36.7; O2SAT 97–100
--- OUTSIDE RECORDS SUMMARY | 2024-11-06 00:51 | XMS_ITS ---
Author Organization [facility] ([address]) Address [address] [place] [address] Care Team Providers Care Seasoning Sprayer Name Role Phone Clayton Priest MD Primary Care Provider Briseyda Mcguire Unavailable [phone] Allergies Allergen (clinical drug ingredient) Drug/Non Drug [...] Problem Allergic rhinitis caused by pollen (disorder) (35832700) Allergic rhinitis due to pollen (J30.1) Active confirmed Problem Allergic rhinitis caused by animal hair and dander (767610969507459) Allergic rhinitis due to animal (cat) (dog) hair and dander (J30.81) Active confirmed Problem Allergic rhinitis (51525982) Other allergic rhinitis (J30.89) Active confirmed Problem Chronic allergic conjunctivitis (73512794) Other chronic allergic conjunctivitis (H10.45) Active confirmed Problem Food allergy (638790218) Allergy to other foods (Z91.018) Active confirmed Vital Signs Blood pressure systolic 125 mm Hg 05/09/20 24 Blood pressure diastolic 77 mm Hg 024 Height 65 in 05/09/2024 Weight 184.8 lbs 05/09/2024 BMI 30.75 kg/m2 05/09/2024 Oximetry 100 % 05/09/2024 Encounters Encounter Location Date Provider Diagnosis [facility] [address] [address] 05/09/2024 Briseyda Moon Dermatitis due to ingested [...] Assessment Notes Dermatitis due to ingested food Rdoerick' s oropharyngeal symptoms from certain fresh fruits [...] to; Veronica; Sahil, White; Beech; Birch; [place]; [place]; [place] Smiths; [place] (Eastern); Elm; [place] (Shagbark); Maple; Hibbing Mix; [place] Mix; [place] (Red); [place] (White); Choctaw (Yellow); Sweet Gum; [place] (Malian); [place] (Black); Bermuda; Brome; Fescue, Red/[place]; William; K. Blue (December); Orchard; Redtop; [place]; Lenny; Cocklebur; Dock, Red ([place]); Dock, Yellow; Hemp, Nicki Water; Kochia; Cutler's Quarter; Brush Elder (Rough); Mugwort; Nettle; Pigweed, Spiny/Rough; Plantain, Yakut; Cat Hair; Cat Pelt; UF Dog; Ragweed Mix; North Korean Thistle; [place]; Alternaria; Bortytis Cinerea; positive and negative controls responded appropriately Progress Notes * Kit RIDLEYDOB:1975 ( 48 yo F)Acc No.[id number]:05/09/2024 Progress Notes Patient: Kit LEWIS Provider: Kaleb Moon MD :1975 A ge:48 Y S ex:Female Date:05/09/2024 Address:[address] [place] [address] Pcp:Clayton Priest MD Subjective: * Chief Complaints: * C hronic upper airway symptoms concerning for uncontrolled atopic diseaseMouth swelling and irritation * HPI: * Introduction: I had the pleasure of seeing Alex Ridley, a 48 year old with type 1 diabetes presenting for evaluation of oral swelling and mouth tingling. She was referred by Dr. Pirest. Records were reviewed. Around age 33 she [...] She is applying hydrocortisone cream, Vaseline and [place] Butter with some improvement. She is currently [...] the rash last? If you were to tatitlek one spot with a pen, how long [...] o H ave you previously seen an evp and chief operating officer for evaluation of possible food allergy? Y [...] H ave you been evaluated by an evp and chief operating officer previously for possible drug allergy? N o [...] of carpet? 1 0 Do you have [id number] carpeting? Y es What is the age [...] to; Veronica; Sahil, White; Beech; Birch; [place]; [place]; [place]; [place] (Eastern); Elm; [place] (Shagbark); Maple; Hibbing Mix; [place] Mix; [place] (Red); [place] (White); Choctaw (Yellow); Sweet Gum; [place] (Malian); [place] (Black); Bermuda; Brome; Fescue, Red/[place]; William; K. Blue (December); Orchard; Redtop; Mount [place]; Lenny; Cocklebur; Dock, Red ([place]); Dock, Yellow; Hemp, Nicki Water; Kochia; Cutler's Quarter; Brush Elder (Rough); Mugwort; Nettle; Pigweed, Spiny/Rough; Plantain, Yakut; Cat Hair; Cat Pelt; UF Dog; Ragweed Mix; North [place] Thistle; [place]; Alternaria; Bortytis Cinerea; positive and negative controls responded appropriately. * Procedure Codes: 9 5004 PRICK TESTS, Units: 72.00 34327 PT-FOCUSED [facility] RISK [id number] DOC MEDS VERIFIED W/PT OR RE * [...] Management) * Billing Information: * Visit Code: 77113 Office Visit, New Pt., Level 4. Modifiers: 25 * Procedure Codes: 64822 PRICK TESTS. Units: 72.00. 78304 PT-FOCUSED [facility] RISK ASSMT. G8427 DOC MEDS VERIFIED W/PT OR RE. Images * mobile_05/09/2024 10:19:46 * Sign off status: Completed true * Provider: Kaleb Moon MD Date: 1 Generated for Jackeline dawson/Agapito/eTransmitting on: 0 11/06/2024 12:51 AM CDT History and Physical Notes * [...] She is applying hydrocortisone cream, Vaseline and [place] Butter with some improvement. She is currently [...] the rash last? If you were to tatitlek one spot with a pen, how long [...] this rash?: Yes What type of physician?: Evening Sitter What tests were performed?: airborne allergy skin [...] Have you been evaluated by a n evp and chief operating officer previously for possible drug allergy?: No *Stinging [...] reaction(s)?: No Have you previously seen an evp and chief operating officer for evaluation of possible food allergy?: Yes [...]
--- OUTSIDE RECORDS SUMMARY | 2024-11-06 00:51 | XMS_ITS | Clinical Summary ---
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
--- OUTSIDE RECORDS SUMMARY | 2024-11-06 00:52 | XMS_ITS | Data Portability ---
Author Organization [place] - [facility] OFFICE Address [address] [place] [address] Care Team Providers Care Air Traffic Instructor Name Role Phone MONIE UMANA Primary Care Provider [phone] Assessment Encounter Date Assessment Date Assessment LastModified by Organization Details LastModified Time 05/12/2022 05/12/2022 Discussed with patient findings, diagnosis, and prognosis. Discussed evaluation and treatment options including risks and benefits with patient, and patient expressed understanding. The following interventions were recommended: heart healthy low-fat, low-sodium diet, continue regular exercise, maintain appropriate weight, continue current medications, and medical follow-up as noted. [email or web address] Not available 05/12/2022 12:45:12 06/29/2022 06/29/2022 Discussed with patient findings, diagnosis, and prognosis. Discussed evaluation and treatment options including risks and benefits with patient, and patient expressed understanding. The following interventions were recommended: heart healthy low-fat, low-sodium diet, continue regular exercise, maintain appropriate weight, continue current medications, and medical follow-up as noted. [email or web address] Not available 06/29/2022 16:00:45 Plan of Treatment Reminders Order Date Submit Date Provider Last Modified By Organization Details Last Modified Time Details Appointments None recorded. Lab None recorded. Referral None recorded. Procedures None recorded. Surgeries None recorded. Imaging electrocar diogram 2017 018 AMRIT Not available 8 14:52:04 electrocar diogram 2017 018 apolinar Not available 8 14:49:16 Medication Orders ezetimibe 10 mg tablet 2021 022 [place] [id number], [address], [place], [id number], 09:49:08 atorvastat in 40 mg tablet [address] [facility]12716, [address], [place], [place], [id number], 16:06:55 aspirin 81 mg tablet,del ayed release 2021 022 [facility] #28739, [address], [place], [place], [id number], 13:23:31 magnesium oxide 400 mg (241.3 mg magnesium) tablet [address] [facility]08675, [address] , [place], [place], [id number], 12:23:37 lisinopril 2.5 mg tablet 2018 019 [facility] #84671, [address], [place], [place], [id number], 9 16:25:30 magnesium oxide 400 mg (241.3 mg magnesium) tablet 2017 018 [address] [facility], [address], [place], [place], [id number], 12:23:37 aspirin 81 mg tablet,del ayed release 2017 018 [address] [facility] [address], [address] , [place], [place], [id number], 13:01:56 Patient TargetsNo targets recorded. Patient Instructions Encounter Date Encounter Id Patient Instructions Last Modified By Organization Details Last Modified Time 05/12/2018 [id number] learning about type 1 diabetes apolinar Not available 05/12/2018 14:49:16 type 1 diabetes: care instructions [email or web address] Not available 05/12/2018 14:49:16 06/09/2018 [id number] learning about type 1 diabetes [email or web address] Not available 06/09/2018 14:02:15 type 1 diabetes: care instructions [email or web address] Not available 06/09/2018 14:02:15 08/29/2018 [id number] learning about type 1 diabetes nurbanski Not available 08/29/2018 16:25:26 type 1 diabetes: care instructions [email or web address] Not available 08/29/2018 16:25:26 collapsed lung: care instructions [email or web address] Not available 08/29/2018 16:25:26 05/12/2022 [id number] When You Want to Lose Weight: Care Instructions [email or web address] Not available 05/12/2022 13:23:08 sleep apnea: car e instructions [email or web address] Not available 05/12/2022 13:23:08 palpitations: care instructions [email or web address] Not available 05/12/2022 13:23:08 carotid stenosis : care instructions [email or web address] Not available 05/12/2022 13:23:08 06/29/2022 [id number] When You Want to Lose Weight: Care Instructions [email or web address] Not available 06/29/2022 16:19:00 sleep apnea: car e instructions [email or web address] Not available 06/29/2022 16:19:00 palpitations: care instructions [email or web address] Not available 06/29/2022 16:19:00 carotid stenosis : care instructions Not available 06/29/2022 16:19:00 Reason for Referral None Reported. Results Created Date Observation Date Name Description Value Unit Range Abnormal Flag Note LastModifiedBy Organization Detail LastModifiedTime 05/12/20 18 05/12/2018 elect rocar diogr am Result EKG (05/12): NSR poor R progre ssion, NSST change s Not Available Wei Whitman MD [address], [place], [address], 05/12/2018 14:43:39 05/09/20 18 09/11/2016 elect rocbrandt diogr am No observ ation record ed. [email or web address] Not Available 05/13 14:41:13 05/12/20 18 05/12/2018 elect rocar diogr am No observ ation record ed. [email or web address] Not Available 2017 17:51:57 05/12/20 18 03/24/2018 junior r monit or No observ ation record ed. [email or web address] Not Available 2017 11:26:40 05/12/20 18 05/14/2017 US, echoc ardio gram No observ ation record ed. hhalabi Not Available 2017 11:36:50 05/12/20 18 05/06/2017 US, carot id arter y No observ ation record ed. [email or web address] Not Available 2017 11:39:40 05/12/20 18 05/06/2017 CT, brain , w/o contr ast No observ ation record ed. [email or web address] Not Available 2017 11:41:50 06/10/20 18 05/27/2018 US, echoc ardio gram No observ ation record ed. [email or web address] Not Available 2017 16:31:15 06/10/20 18 05/27/2018 junior r monit or No observ ation record ed. [email or web address] Not Available 2017 11:02:26 05/31/20 19 05/27/2018 tread mill nucle ar stres s test (PROC ) No observ ation record ed. [email or web address] Not Available 2018 10:47:00 05/13/20 22 05/12/2022 elect merlinar diogr am No observ ation record ed. [email or web address] Not Available 2021 16:15:11 06/02/20 22 05/27/2022 US, echoc ardio gram No observ ation record ed. Not Available 2021 11:14:50 06/29/20 22 06/04/2022 event monit or No observ ation record ed. Not Available 2021 13:12:27 07/16/19 23 06/08/2022 US, carot id arter y No observ ation record ed. Not Available 2022 13:38:55 Result Notes None recorded. Problems Name Problem SNOMED Code Status Onset Date Resolution Date Notes Provider Name and Address Organization Details Recorded Time Palpjohntio ns 64481426 Active 2021 [place], [place] - [facility] 12:41:50 Obstructiv e sleep apnea syndrome 04300719 Active 2021 [place] - [facility] 12:48:19 Carotid artery stenosis 93700531 Active 2021 He [place] - [facility] 13:00:30 Mixed hyperlipid emia 684838136 Active 2021 [place] - [facility] 13:03:51 Obesity 368303151 Active 2021 [place] - [facility] 13:10:22 Increased blood pressure 76103964 Active 2021 [place] [facility] 13:12:29 Cough 93645325 Active 2017 Sherine Flor[place] - [facility] 8 13:18:19 Dyspnea 499556040 Active 2017 Sherine [place] [facility] 13:18:23 Dyspnea on exertion 52784969 Active 2017 Sher[place] [facility] 8 13:18:34 Snoring 48424684 Active 2017 Sher[place] [facility] 8 13:18:45 Fatigue 40713524 Active 2017 Sher[place] [facility] 8 13:18:54 Weight gain 0449509 Active 2017 Sher[place] [facility] 8 13:19:01 Ringing in ear 363318836 Active 2017 Sher[place] [facility] 8 13:19:09 Tight chest 49009199 Active 2017 Sherine [place] [facility] 8 13:19:19 Chest discomfort 644603811 Active 2017 Sherine [place]ois, [place] - [facility] 8 13:19:28 Disturbanc e in speech 90316636 Active 2017 Sherine [place] - [facility] 8 13:19:40 Anxiety 74570512 Active 2017 Sherine [place] [facility] 8 13:19:47 Depressive disorder 14326658 Active 2017 Sherine [place] [facility] 8 13:19:58 Type 1 diabetes mellitus 28083623 Active [address] [facility], [email or web address] 7.5 Jarrod dubois, [facility] 8 13:43:30 Pneumothor ax 44895262 Active 2017 Jarrod [facility] 8 13:44:03 Atrioventr icular block 870784266 [facility] 14:45:24 Problem Notes None recorded. Procedures Surgical History None recorded. Imaging Results Imaging Date Name Status LastModified by Organization Details LastModified Time 05/12/2018 electrocardiogram completed [email or web address] Informa tion not available 05/12/2018 17:51:57 03/24/2018 holter monitor completed Informatio n not available 05/15/2018 11:26:40 09/11/2016 electrocardiogram completed [email or web address] Informa tion not available 05/13/2018 14:41:13 05/14/2017 US, echocardiogram completed Inform ation not available 05/15/2018 11:36:50 05/06/2017 US, carotid artery completed Inform ation not available 05/15/2018 11:39:40 05/06/2017 CT, brain, w/o contrast completed Information not available 05/15/2018 11:41:50 05/27/2018 US, echocardiogram completed [email or web address] Inform ation not available 06/10/2018 16:31:15 05/27/2018 holter monitor completed Informatio n not available 06/13/2018 11:02:26 05/27/2018 treadmill nuclear stress test (PROC) completed [email or web address] Information not available 05/31/2019 10:47:00 05/12/2022 electrocardiogram completed [email or web address] Informa tion not available 05/13/2022 16:15:11 05/27/2022 US, echocardiogram completed Inform ation not available 06/02/2022 11:14:50 06/04/2022 event monitor completed Information not available 06/29/2022 13:12:27 06/08/2022 US, carotid artery completed Inform ation not available 07/16/2022 13:38:55 Procedure Notes None recorded. Medical Equipment None Reported. Allergies Allergen ID Allergen Name Allergen Category Reaction Reaction Severity Criticality Documentation Date Start Date Code Code System Note Provider Name and Address Organization Details Recorded Time 33968 atorvasta tin medicatio n Not available Not available Not available 05/20/2022 18176 RxNorm throa t swell ing/e k Justina dubois [place] - [facility] 15:14:34 80280 ezetimibe medicatio n swelling severe high 07/01/2022 92894 8 RxNorm Tongu e Swell ing that sprea d to mouth Justina dubois [place] - [facility] 10:38:50 Medications Name Sig Start Date Stop Date Status Note LastModified by Organization Details LastModified Time atorvastat in 40 mg tablet TAKE 1 TABLET BY MOUTH EVERY DAY AT BEDTIME 06/29 completed Not Available Not Available Not Available terconazol e 0.8 % vaginal cream 05/12 completed Not Available Not Available Not Available clobetasol 0.05 % topical cream APPLY TO THE AFFECTED AREA ONCE WEEKLY DIRECTED active no longer take 05/12/22 mb Not Available Not Available Not Available aspirin 81 mg tablet,del ayed release TAKE 1 TABLET BY MOUTH EVERY DAY active Not Available Not Available No t Available magnesium oxide 400 mg (241.3 mg magnesium) tablet Take 1 tablet every day by oral route. 05/12 completed Not Available Not Available Not Available Novolog U-100 Insulin aspart 100 unit/mL subcutaneo us solution INJECT 75 UNITS UNDER THE SKIN VIA INSULIN PUMP EVERY DAY. TOTAL DAILY DOSE 75 UNITS active Not Available Not Available No t Available diazepam 10 mg tablet INSERT ONE TABLET VAGINALL Y EVERY NIGHT AT BEDTIME FOR 10 DAYS DIRECTED active no longer take 05/12/22 mb Not Available Not Available Not Available lisinopril 2.5 mg tablet TAKE 1 TABLET BY MOUTH DAILY DIRECTED active Not Available Not Available No t Available escitalopr am 10 mg tablet TAKE 1 TABLET BY MOUTH EVERY DAY active no longer take 05/12/22 mb Not Available Not Available Not Available ezetimibe 10 mg tablet Take 1 tablet every day by oral route. active Not Available Not Available No t Available Vitamin D3 25 mcg (1,000 unit) tablet Take 1 tablet every day by oral route as directed . 05/12 completed Not Available Not Available Not Available escitalopr am 5 mg tablet Take 1 tablet every day by oral route as directed for 7 days. 05/12 completed Not Available Not Available Not Available BD Ultra-Fine Short Pen Needle 31 gauge x 11/24 completed Not Available Not Available Not Available tranexamic acid 650 mg tablet 05/12 completed Not Available Not Available Not Available Afrezza 02mg 3x daily 05/12 completed Not Available Not Available Not Available Tresiba FlexTouch U-100 insulin 100 unit/mL (3 mL) subcutaneo us pen Inject 22 units every day by subcutan eous route as directed . active Not Available Not Available No t Available Afrezza 4 unit (90)/8 unit (90) cartridge with inhaler 05/12 completed Not Available Not Available Not Available Linzess 72 mcg capsule TAKE 1 CAPSULE BY MOUTH DAILY active Not Available Not Available No t Available Ozempic 0.25 mg or 0.5 mg (2 mg/1.5 mL) subcutaneo us pen injector INJECT 0.25 MG UNDER THE SKIN WEEKLY FOR 4 WEEKS THEN INCREASE TO 0.5MG active Not Available Not Available No t Available Dexcom G6 Sensor device CHANGE EVERY 10 DAYS active Not Available Not Available No t Available Dexcom G6 Transmitte r device CHANGE EVERY 90 DAYS active Not Available Not Available No t Available Baqsimi 3 mg/actuati on nasal spray ADMINIST ER 1 SPRAY IN 1 NOSTRIL NEEDED FOR HYPOGLYC EMIA active no longer take 05/12/22 mb Not Available Not Available Not Available Vitals Date Recorded Body weight Body mass index (BMI) Body height Heart rate Oxygen saturation Oxygen saturation in Arterial blood by Pulse oximetry Systolic blood pressure Diastolic blood pressure Provider Name and Address Organization Details Last Updated DateTime 8 87849.7 7 g 31.1 kg/m2 165.1 cm 82 /min 95 % 95 % 136 mm[Hg] 72 mm[Hg] Sherine Florian [facility] 8 13:25:24 Date Recorded Body height Provider Name an d Address Organization Details Last Updated DateTime 06/09/2018 165.1 cm NAEL ATKINSON [facility] 06/09/2018 12:54:16 Date Recorded Body mass index (BMI) Body weight Heart rate Oxygen saturation Oxygen saturation in Arterial blood by Pulse oximetry Systolic blood pressure Diastolic blood pressure Provider Name and Address Organization Details Last Updated DateTime 8 31.1 kg/m2 59128.7 7 g 76 /min 98 % 98 % 108 mm[Hg] 72 mm[Hg] Sherine Birchehr [facility] 8 13:26:39 Date Recorded Body height Body mass index (BMI) Body weight Heart rate Oxygen saturation Oxygen saturation in Arterial blood by Pulse oximetry Systolic blood pressure Diastolic blood pressure Provider Name and Address Organization Details Last Updated DateTime 9 165.1 cm 31.3 kg/m2 05869.3 7 g 70 /min 100 % 100 % 112 mm[Hg] 68 mm[Hg] Eulalia Salguero [facility] 9 15:33:52 Date Recorded Body height Body mass index (BMI) Body weight Heart rate Oxygen saturation Oxygen saturation in Arterial blood by Pulse oximetry Systolic blood pressure Diastolic blood pressure Provider Name and Address Organization Details Last Updated DateTime 2 165.1 cm 34.3 kg/m2 80500.0 3 g 64 /min 93 % 93 % 142 mm[Hg] 74 mm[Hg] Genevieve Champion [facility] 2 12:24:31 Date Recorded Body height Body mass index (BMI) Body weight Heart rate Oxygen saturation Oxygen saturation in Arterial blood by Pulse oximetry Systolic blood pressure Diastolic blood pressure Provider Name and Address Organization Details Last Updated DateTime 2 165.1 cm 33.6 kg/m2 86185.6 6 g 89 /min 98 % 98 % 126 mm[Hg] 64 mm[Hg] Genevieve Champion [facility] 2 15:17:18 Social History Question Answer Notes LastModified by Organizat ion Details LastModified Time Tobacco Smoking Status Never Smoker [facility] 13:14:39 What Is Your Level Of Alcohol Consumption? None [id number] Information not available 05/14/2020 What Is Your Level Of Caffeine Consumption? Moderate [id number] Information not available 05/14/2020 How Much Tobacco Do You Chew? None [id number] Information not available 05/14/2020 What Type Of Diet Are You Following? REGULAR Diabetic [id number] Information not available 05/14/2020 Which Illicit Or Recreational Drugs Have You Used? No [id number] Information not available 05/14/2020 What Is Your Occupation? [employer] [id number] Information not available 05/14/2020 Marital Status Single Informatio n not available 05/12/2018 What Was The Date Of Your Most Recent Tobacco Screening? 08/29/2018 [id number] Information not available 05/14/2020 How Many Children Do You Have? 1 [id number] Information not available 05/14/2020 Sex: Unknown Functional Status Question Answer Note LastModified by Organization D etails LastModified Time What is your exercise level? None [id number] Information not available 05/14/2020 Mental Status None recorded. Family History Relationship Description Onset Age of this Age Resolved Age Notes LastModified by Organization Details LastModified Time Maternal Grandfather Myocardial infarction 82 [email or web address] Not available 05/12 13:45:59 Maternal Grandfather Diabetes mellitus [email or web address] Not available 2017 13:21:04 Maternal Grandfather Hypertensive disorder [email or web address] Not available 2017 13:21:27 Maternal Grandfather Muscle weakness weak heart muscle mloehr Not available 05/12/2018 13:21:58 Father Myocardial infarction 52 [email or web address] Not available 05/12 13:45:19 Father Diabetes mellitus mloehr Not available 2017 13:21:04 Maternal Grandmother Diabetes mellitus mloehr Not available 2017 13:21:04 Maternal Grandmother Muscle weakness mloehr Not available 2017 13:21:58 Unspecified Relation Hypertensive disorder Uncle mloehr Not available 2017 13:21:27 Unspecified Relation Cerebrovascu lar accident Auntie mloehr Not available 07/2017 13:22:14 Medical History Condition Response Diabetes Y Gynecological HistoryNo gynecological history recorded. Obstetrics History GPAL:G 0 P 0 0 0 0 Past Encounters Encounter ID Performer Location Encounter Start Date Encounter Closed Date Diagnosis/Indication Diagnosis SNOMED-CT Code Diagnosis ICD10 Code Diagnosis Note [id number] Jarrod Jam[facility] OFF[facility] [address] [place] [address] 05/12/2018 12:55:19 05/12/2018 14:49:23 Chest discomfort 215358612 R07.89 Patient presents with {{chest* a rm back ja w}} pain {{typical of angina wit h atypical features*} }. Given the history, exam findings and {{high int ermediate * low}} cardiac risk factors, I {{feel* do not feel}} additional investigat ion is warranted. I have made arrangemen ts in the near future for {{an exercise stress echocardio gram to evaluate for any ischemia, structural heart disease, or exercise induced arrythmia an exercise stress nuclear test an exercise stress nuclear test (stress echo not possible due to COPD or obesity) a n exercise stress nuclear test and an echocardio gram to evaluate for any ischemia or structural heart disease* a pharmacolo gic stress nuclear test due to reduced functional capacity or conduction abnormalit y cardiac catheteriz ation an echocardio gram to evaluate left ventricula r function and any structural heart disease or valvular abnormalit y}}. The procedure was discussed with the patient, and risks, benefits, and alternativ e options were explained. {{ The patient was informed about heart catheteriz ation and interventi onal procedures and agrees to proceed.}} Appropriat e labwork {{has has not*}} been performed recently, therefore I {{have not have*} } made arrangemen ts for further testing. I have asked the patient to curtail exercise and activities until our investigat ion is complete. I have {{made no made the following* }} adjustment s to the present medical regimen. {{ Patient has been started on daily aspirin.*} } {{ Patient has been given a prescripti on for sublingual nitroglyce rin.}} Atrioventr icular block 432785778 I44.30 recent Holter suggested presence of Mobitz t I or t II block.Pt was in NSR.will arrange for Event monitorwil l check labs including electrolyt es. Type 1 cristofer betes mellitus 00347479 E10.9 managemen per endocrinol ogygoal HgbA1C < 7 [id number] [facility] OFFICE [address] [place] [address] 06/09/2018 12:29:58 06/09/2018 13:49:32 Chest discomfort 856761764 R07.89 stress test negative.E CHO showed normal LV systolic and diastolic function cont medical management and risk factor modificati on Atrioventr icular block 283320321 I44.30 Event monitor showed episodes of bigeminy no significan t arrhythmia was recorded. Review of labs showed normal K level and mildly decreased Mg level. Pt states that she had TSH checked by her endocrinol ogist and it was fine. recently pt had Holter at OSH suggested presence of Mobitz t I or t II block. Pt was in NSR. pt was offered low dose Bblocker but she wants to see if her anxiety pill will help her with feeling palpitati ons Type 1 cristofer betes mellitus 33575662 E10.9 managemen per endocrinol ogygoal HgbA1C < 7 [id number] Jarrod Arriola Office [address] [place] [facility] [place] [address] 08/29/2018 15:20:52 08/29/2018 16:14:06 Atrioventricular block 149810951 I44.30 Event monitor showed episodes of bigeminy no significan t arrhythmia was recorded. Review of labs showed normal K level and mildly decreased Mg level. Pt states that she had TSH checked by her endocrinol ogist and it was fine. recently pt had Holter at OSH suggested presence of Mobitz t I or t II block. Pt was in NSR. pt was offered low dose Bblocker but she wants to see if her anxiety pill will help her with feeling palpitati ons Chest discomfort 5588925 09 R07.89 stress test negative.E CHO showed normal LV systolic and diastolic function cont medical management and risk factor modificati on Type 1 cristofer betes mellitus 09135335 E10.9 managemen per endocrinol ogygoal HgbA1C < 7 Pneumothorax 46464567 J9 3.9 [id number] He Richardson Office [address] [place] [address] 05/12/2022 11:59:40 05/12/2022 13:44:28 Atrioventricular block 116993472 I44.30 Prior event monitor showed episodes of bigeminy, no significan t arrhythmia was recorded. Had 48 Holter Monitor 05/27/18 : Normal sinus rhythm. Sinus tachy and arrhythmia . Episodes of bigeminy. Occasional PVC's but not correlated with symptoms. Review of labs showed normal K level and mildly decreased Mg level. Pt states that she had TSH checked by her endocrinol ogist and it was fine. Previously , pt had Holter at OSH suggested presence of Mobitz 2nd degree type I or type II block. Pt was in NSR. Previously , she had 03/24/18 HOLTER MONITOR: Underlying sinus rhythm with controlled ventricula r responses. 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 No atrial fibrillati on or atrial flutter. Patient's symptoms of fluttering and palpitatio ns associated with sinus rhythm. Patient was offered low dose B-catherine but she wanted to see if her anxiety pill will help her with feeling palpitati ons . Chest discomfort 2069257 09 R07.89 Resolved. Had treadmill nuclear stress test (PROC) 05-27-2018 : Negative stress test for ischemia. Normal LV systolic function. Artifact noted. No previous study to compare. LVEF 60%. Type 1 cristofer betes mellitus 83709651 E10.9 management per endocrinol ogygoal HgbA1C < 7 Palpitations 67276941 R0 0.2 Increased at time of recent COVID-19 infection early 03/2022. Improved. Previously , she had 48 Holter Monitor 05/27/18 : Normal sinus rhythm. Sinus tachy and arrhythmia . Episodes of bigeminy. Occasional PVC's but not correlated with symptoms. Previously , she had 03/24/18 HOLTER MONITOR: Underlying sinus rhythm with controlled ventricula r responses. 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 No atrial fibrillati on or atrial flutter. Patient's symptoms of fluttering and palpitatio ns associated with sinus rhythm. Had 04/20/22: hgb 13.0, K 4.3, Cr 0.8, TSH 1.84, LDL 93 Obtain BMP, Mg. She felt better on prior Mg supplement , no longer taking. Reduce current 2 servings of caffeine daily. Obtain echo to evaluate for structural /functiona l disease. Obtain 30 day Zoll MCT monitor. Obstructiv e sleep apnea syndrome 12825379 G47.33 No daytime somnolence . Reports snoring. Reports AM headache. Reports sense of poor sleep and palpitatio ns. Obtain home sleep study. Carotid ar thomas stenosis [id number] I65.29 Mild. Had US CAROTID 05/06/17: <50% stenosis in the right internal carotid artery. < 50% stenosis in the left internal carotid artery. Obtain carotid U/S. Began ASA 81 mg qd 05/12/22. Needs to keep LDL less than 70, and HDL more than 40. Mixed hyperlipidemia [id number] E78.2 Needs to keep LDL less than 70, and HDL more than 40. Had 04/20/22: hgb 13.0, K 4.3, Cr 0.8, TSH 1.84, LDL 93 Reduce fatty red meat and eggs yolks. Began atorvastat in 40 mg HS 05/12/22. Obesity [id number] E66.01 20 lb. weight loss recommende d over the next 2 months. Increased blood pressure [id number] R03.0 Blood pressure is elevated today, but this is only one reading, will keep close follow up, and consider medication change if blood pressure is still elevated next visit. Reduce current Na intake. BP diary. [id number] [facility] [address] [place] [id number] 06/29/2022 15:07:18 06/29/2022 16:32:37 Palpitations [id number] R00.2 Increased at time of recent COVID-19 infection early 03/2022. Resolved. Previously , she had 48 Holter Monitor 05/27/18 : Normal sinus rhythm. Sinus tachy and arrhythmia . Episodes of bigeminy. Occasional PVC's but not correlated with symptoms. Previously , she had 03/24/18 HOLTER MONITOR: Underlying sinus rhythm with controlled ventricula r responses. 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 No atrial fibrillati on or atrial flutter. Patient's symptoms of fluttering and palpitatio ns associated with sinus rhythm. Had 04/20/22: hgb 13.0, K 4.3, Cr 0.8, TSH 1.84, LDL 93 Obtain BMP, Mg. She felt better on prior Mg supplement , no longer taking. Reduce current 2 servings of caffeine daily. Obtained echo 05/27/22: Study quality: Technicall y difficult. Technical limitation s- poor acoustic window, body habitus. LV chamber size is normal. LV wall thickness is normal. The estimated left ventricle ejection fraction is greater than 55% (normal). The aortic valve leaflet is mildly thickened. There is mild thickening of the mitral valve anterior leaflet. Had 30 day monitor 06/04/22: NSR, SR with 2nd degree AV block type 1, Wenckebach (43 bpm). Atrioventr icular block [id number] I44.30 Has occasional 2nd degree AV block type 1, Wenckebach . Prior event monitor showed episodes of bigeminy, no significan t arrhythmia was recorded. Had 48 Holter Monitor 05/27/18 : Normal sinus rhythm. Sinus tachy and arrhythmia . Episodes of bigeminy. Occasional PVC's but not correlated with symptoms. Review of labs showed normal K level and mildly decreased Mg level. Pt states that she had TSH checked by her endocrinol ogist and it was fine. Previously , pt had Holter at OSH suggested presence of Mobitz 2nd degree type I or type II block. Pt was in NSR. Previously , she had 03/24/18 HOLTER MONITOR: Underlying sinus rhythm with controlled ventricula r responses. 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 No atrial fibrillati on or atrial flutter. Patient's symptoms of fluttering and palpitatio ns associated with sinus rhythm. Had 30 day monitor 06/04/22: NSR, SR with 2nd degree AV block type 1, Wenckebach (43 bpm). Chest discomfort [id number] R07.89 Resolved. Had treadmill nuclear stress test (PROC) 05-27-2018 : Negative stress test for ischemia. Normal LV systolic function. Artifact noted. No previous study to compare. LVEF 60%. Type 1 cristofer betes mellitus [id number] E10.9 management per endocrinol ogygoal HgbA1C < 7 Obstructiv e sleep apnea syndrome [id number] G47.33 No daytime somnolence . Reports snoring. Reports AM headache. Reports sense of poor sleep and palpitatio ns. Obtain home sleep study. Carotid ar thomas stenosis [id number] I65.29 Mild. Had carotid U/S 06/08/22: mild B ICA stenosis < 50%. Had US CAROTID 05/06/17: <50% stenosis in the right internal carotid artery. < 50% stenosis in the left internal carotid artery. Obtain carotid U/S yearly. Began ASA 81 mg qd 05/12/22. Needs to keep LDL less than 70, and HDL more than 40. Mixed hyperlipidemia [id number] E78.2 Needs to keep LDL less than 70, and HDL more than 40. Had 04/20/22: hgb 13.0, K 4.3, Cr 0.8, TSH 1.84, LDL 93 Reduce fatty red meat and eggs yolks. Began atorvastat in 40 mg HS 05/12/22, but patient stopped due to symptoms of swelling throat swelling, treated with Benadryl. Swelling resolved. Had 06/13/22 CMP: NA 139, K 4.0, CL 102, CO2 31, BUN 16, CR 0.80, BMP: GL 130, CA 8.8, MG 1.7, AST 22, ALT 9, TR 58, CH 163, LDL 81. Began ezetimibe 10 mg qd 06/29/22. Obesity [id number] E66.01 20 lb. weight loss recommende d over the next 2 months. Increased blood pressure [id number] R03.0 Blood pressure is elevated today, but this is only one reading, will keep close follow up, and consider medication change if blood pressure is still elevated next visit. Reduce current Na intake. BP diary with normal BP 06/2022. Health Concerns Section Related Observation LastModified by Organization Detai ls LastModified Time None Recorded Concern Status LastModified by Organization Details LastModified Time None Recorded Advance Directives Directive None Recorded Payers Encounter Date Sequence Insurance Name Policy Number Policy Lamas Covered Member ID Lamas Member ID Guarantor Name 05/12/2018 1 [employer] - DOS PRIOR TO 21 - [facility] BENEFITS PLAN [id number] Tayana D Long [id number] Tayana D Long 06/09/2018 1 [employer] - DOS PRIOR TO 21 - [facility] BENEFITS PLAN [id number] Tayana D Long [id number] Tayana D Long 08/29/2018 1 [employer] - DOS PRIOR TO 21 - [facility] BENEFITS PLAN [id number] Tayana D Long [id number] Tayana D Long 05/12/2022 1 [employer] - [facility] BENEFITS PLAN (PPO) Tayana D Long [id number] OI Tayana D Long 06/29/2022 1 [employer] - [facility] BENEFITS PLAN (PPO) Tayana D Long [id number] OI Tayana D Long Notes Date Note Type Note Provider Name and Address Organization Details Recorded Time 05/12/2018 text/html 42 year-old AAF with history of DM t I, anxiety, depression, spontaneous pnumothorax presents for cardiovascular evaluation. Pt states that she recently complained for palpitations and had Holter which was abnormal.Palpitations since one month. pt visited recently her [employer] and was started on meds for anxiety.Since on anxiety pill she states her palpitations significantly improved. pt complains for tightness at back and front of chest. on R side where she had surgery before. Pt does complain for SOB at night and has some cough.No DUFF, No CP..Pt states that she developed spontaneous pnumothorax.. Had surgery at [facility]. Was told that had probably 'some thinning of lung since [facility] [place].Surgery was in 2012. tightness of R side of chest was present since then but it is better now. About a year ago she thought that she had seizure and she had a lot of diagnostic tests. Tests were done at [facility].Some available records were reviewed. Pt had ECHO which showed normal LV systolic function.her lipid panel was normal. TSH was 0.05 - she states that she showed it to her head setter at [facility] (Dr. Martinez) {{No known history of coronary artery disease.* History of coronary artery disease reported.}} {{No history of previous myocardial infarction.* History of previous myocardial infarction reported.}} {{No history of heart failure.* History of heart failure reported.}} {{No known valvular heart disease.* History of valvular heart disease reported.}} {{No known arrhythmia.* History of arrhythmia reported.}} {{Patient reports feeling well overall.* Patient reports not feeling well sometimes.}} {{Patient is active, but is not exercising regularly.* Patient is active, exercising regularly. Patient is not very active, and is not exercising.}} {{No chest pain. Chest pain reported.* Exertional chest pain reported. Non-exertion al chest pain reported. Chest pain reported which is only sometimes associated with activity.}} {{No arm pain.* Arm pain reported.}} {{No neck pain.* Neck pain reported.}} {{No nausea and vomiting.* Nausea and vomiting reported.}} {{No diaphoresis.* Diaphore sis reported.}} {{No shortness of breath at rest.* Shortness of breath at rest reported.}} {{No dyspnea on exertion.* Dyspnea on exertion reported.}} {{No fatigue.* Fatigue reported.}}{{No orthopnea.* Orthopnea reported.}} {{No PND.* PND reported.}} {{No leg swelling.* Leg swelling reported.}} {{No palpitation. Palpitati on reported.*}} {{No dizziness.* Dizziness reported.}} {{No syncope .* Syncope reported.}} {{No pre-syncope.* Pre-sync ope reported.}} {{No claudication.* Claudic ation reported.}} {{No major bleeding events.* Major bleeding event reported.}} {{No side effects from medications.* Side effects from medications reported.}} {{Complete ROS negative except as stated in the HPI. Complete ROS negative except as stated in the HPI and ROS.*}} Results from this visit, or from the past: EKG (05/12/18): NSR poor R progression, NSST changes Jarrod Thomsonalexsandra [place], [place] - [facility] 05/12/2018 14:49:20 06/09/2018 text/html 06/09/18 42 year-old AAF with history of DM t I, anxiety, depression, spontaneous pnumothorax presents forscheduled fu. Pt underwent diagnostic tests and today presents for review of results. Pt states that she has a lot of anxiety and recently was started on Lexapro with improvement of her symptoms including improvement of feeling palpitaitons. Pt states that she recently complained for palpitations and had Holter which was abnormal.Palpitations since one month. Dr. Martinez, head setter [facility] pt visited recently her [employer] and was started on meds for anxiety.Since on anxiety pill she states her palpitations significantly improved. pt complains for tightness at back and front of chest. on R side where she had surgery before. Pt does complain for SOB at night and has some cough.No DUFF, No CP..Pt states that she developed spontaneous pnumothorax.. Had surgery at [facility]. Was told that had probably 'some thinning of lung since [facility] [place].Surgery was in 2012. tightness of R side of chest was present since then but it is better now. About a year ago she thought that she had seizure and she had a lot of diagnostic tests. Tests were done at [facility].Some available records were reviewed. Pt had ECHO which showed normal LV systolic function.her lipid panel was normal. TSH was 0.05 - she states that she showed it to her head setter at [facility] (Dr. Martinez) Results from this visit, or from the past: 05/30/18: Na 136 ,K 4.2 , CL 98 ,CO2 28, GLU 147, BUN 15 , CR 0.70, 05/30/18: TC 158 ,TG 65,HDL 47,LDL 86, 05/30/18: HgA1c 8.8 04/30/17: HB 12.1, HT 37.7 EKG (05/12/18): NSR poor R progression, NSST changes HOLTER MONITOR: 03/24/18 Underlying sinus rhythm with controlled ventricular responses. ECHO: 05/14/17 Normal left ventricular systolic function. No focal wall motion abnormality. Normal left ventricular size. Definity contrast agent used to visually enhance endocardial wall motion and contractility. Left ventricular wall thickness upper limits of normal. Ejection fraction is measured at 57%. Normal appearance of the aortic valve. No evidence of hemodynamically significant aortic stenosis by doppler. Trileaflet aortic valve. No aortic regurgitation. Normal appearance of the mitral valve. Trivial regurgitation of the mitral valve. There is no hemodynamically significant mitral stenosis by Doppler. No evidence for thrombus or vegetations are noted. Consider ANGELO if clinical suspicion is high. CT BRAIN:05/06/18 No acute intracranial findings. US CAROTID:05/06/17 <50% stenosis in the right internal carotid artery. < 50% stenosis in the left internal carotid artery. Jarrod dubois [place] - [facility] 06/09/2018 14:05:28 08/29/2018 text/html 42 year-old AAF with history of DM t I, anxiety, depression, spontaneous pnumothorax presents for scheduled fu. pt was last time in our office 3 months ago. Since then feels fine. No much palpitations.States that feels much better taking Mg supplementation. Pt underwent diagnostic tests and today presents for review of results. Pt states that she has a lot of anxiety and recently was started on Lexapro with improvement of her symptoms including improvement of feeling palpitaitons. Pt states that she recently complained for palpitations and had Holter which was abnormal.Palpitations since one month. Dr. Martinez, head setter [facility] pt visited recently her [employer] and was started on meds for anxiety.Since on anxiety pill she states her palpitations significantly improved. pt complains for tightness at back and front of chest. on R side where she had surgery before. Pt does complain for SOB at night and has some cough.No DUFF, No CP..Pt states that she developed spontaneous pnumothorax.. Had surgery at [facility]. Was told that had probably 'some thinning of lung since [facility] [place].Surgery was in 2012. tightness of R side of chest was present since then but it is better now. About a year ago she thought that she had seizure and she had a lot of diagnostic tests. Tests were done at [facility].Some available records were reviewed. Pt had ECHO which showed normal LV systolic function.her lipid panel was normal. TSH was 0.05 - she states that she showed it to her head setter at [facility] (Dr. Martinez) Results from this visit, or from the past: 05/30/18: Na 136 ,K 4.2 , CL 98 ,CO2 28, GLU 147, BUN 15 , CR 0.70, 05/30/18: TC 158 ,TG 65,HDL 47,LDL 86, 05/30/18: HgA1c 8.8 04/30/17: HB 12.1, HT 37.7 EKG (05/12/18): NSR poor R progression, NSST changes HOLTER MONITOR: 03/24/18 Underlying sinus rhythm with controlled ventricular responses. ECHO: 05/14/17 Normal left ventricular systolic function. No focal wall motion abnormality. Normal left ventricular size. Definity contrast agent used to visually enhance endocardial wall motion and contractility. Left ventricular wall thickness upper limits of normal. Ejection fraction is measured at 57%. Normal appearance of the aortic valve. No evidence of hemodynamically significant aortic stenosis by doppler. Trileaflet aortic valve. No aortic regurgitation. Normal appearance of the mitral valve. Trivial regurgitation of the mitral valve. There is no hemodynamically significant mitral stenosis by Doppler. No evidence for thrombus or vegetations are noted. Consider ANGELO if clinical suspicion is high. CT BRAIN:05/06/18 No acute intracranial findings. US CAROTID:05/06/17 <50% stenosis in the right internal carotid artery. < 50% stenosis in the left internal carotid artery. Jarrod dubois [place] - [facility] 08/29/2018 16:26:32 05/12/2022 text/html 05/12/22 CC: Cardiac follow up 46 year-old AAF with history of carotid artery stenosis, DM type I, hyperlipidemia, obesity, family history of premature OK (father with OK at 52), spontaneous R pneumothorax (about 2009, s/p gluing procedure of lung to chest wall per patient), anxiety, depression, who is seen in cardiac consultation. She was last seen in the clinic on 08/29/18, since then she had COVID-19 in early 03/2022. She had onset of palpitations in early 03/2022 a week before diagnosis with COVID. Palpitations were intermittent for 1 week in early 03/2022, then they resolved. She denies ER visits and hospitalizations since she was last seen. Reports home BP not assessed. {{No known history of coronary artery disease.* History of coronary artery disease reported.}} {{No history of previous myocardial infarction.* History of previous myocardial infarction reported.}} {{No history of heart failure.* History of heart failure reported.}} {{No known valvular heart disease.* History of valvular heart disease reported.}} {{No known arrhythmia. History of arrhythmia reported.*}} {{Patient reports feeling well overall.* Patient reports not feeling well sometimes.}} {{Patient is active, but is not exercising regularly.* Patient is active, exercising regularly. Patient is not very active, and is not exercising.}} {{No chest pain.* Chest pain reported. Exertional chest pain reported. Non-exertion al chest pain reported. Chest pain reported which is only sometimes associated with activity.}} {{No arm pain. Arm pain reported. L Arm pain reported, s/p frozen shoulder, positional.#}} {{No neck pain.* Neck pain reported.}} {{No nausea and vomiting.* Nausea and vomiting reported.}} {{No diaphoresis.* Diaphore sis reported.}} {{No shortness of breath at rest.* Shortness of breath at rest reported.}} {{No dyspnea on exertion.* Dyspnea on exertion reported.}} {{No fatigue. Fatigue reported.*}}{{No orthopnea.* Orthopnea reported.}} {{No PND.* PND reported.}} {{No leg swelling.* Leg swelling reported.}}Reports R thigh burning and numbness, without edema. {{No palpitation. Palpitati on reported.*}} {{No dizziness.* Dizziness reported.}} {{No syncope .* Syncope reported.}} {{No pre-syncope.* Pre-sync ope reported.}} {{No claudication.* Claudic ation reported.}} {{No major bleeding events.* Major bleeding event reported.}} {{No side effects from medications.* Side effects from medications reported.}} {{Complete ROS negative except as stated in the HPI. Complete ROS negative except as stated in the HPI and ROS.*}} No daytime somnolence. Reports snoring. Reports AM headache. Reports sense of poor sleep. LDL was 86 done on 05/29/18 . Pt dose not takes any statins. Previously, pt states that she has a lot of anxiety and recently was started on Lexapro with improvement of her symptoms including improvement of feeling palpitations. Previously, pt visited her [employer] and was started on meds for anxiety.Since on anxiety pill she states her palpitations significantly improved. Previously, patient complains for tightness at back and front of chest, on R side where she had surgery before for lung. Pt states that she developed spontaneous pnumothorax.. Had surgery at [facility]. Was told that had probably 'some thinning of lung since . Surgery was in 2012. tightness of R side of chest was present since then but it is resolved now. Had US CAROTID 05/06/17: <50% stenosis in the right internal carotid artery. < 50% stenosis in the left internal carotid artery. Previously, she had at [facility]: ECHO which showed normal LV systolic function. Had ECHO: 05/14/17 Normal left ventricular systolic function. No focal wall motion abnormality. Normal left ventricular size. Definity contrast agent used to visually enhance endocardial wall motion and contractility. Left ventricular wall thickness upper limits of normal. Ejection fraction is measured at 57%. Normal appearance of the aortic valve. No evidence of hemodynamically significant aortic stenosis by doppler. Trileaflet aortic valve. No aortic regurgitation. Normal appearance of the mitral valve. Trivial regurgitation of the mitral valve. There is no hemodynamically significant mitral stenosis by Doppler. No evidence for thrombus or vegetations are noted. Consider ANGELO if clinical suspicion is high. Had treadmill nuclear stress test (PROC) 05-27-2018: Negative stress test for ischemia. Normal LV systolic function. Artifact noted. No previous study to compare. LVEF 60%. Results from this visit, or from the past: 04/20/22: hgb 13.0, K 4.3, Cr 0.8, TSH 1.84, LDL 93, 05/30/18: Na 136 ,K 4.2 , CL 98 ,CO2 28, GLU 147, BUN 15 , CR 0.70, 05/30/18: TC 158 ,TG 65,HDL 47,LDL 86, 05/30/18: HgA1c 8.8 04/30/17: HB 12.1, HT 37.7 EKG (05/12/18): NSR poor R progression, NSST changes Had ECHO: 05/14/17 Normal left ventricular systolic function. No focal wall motion abnormality. Normal left ventricular size. Definity contrast agent used to visually enhance endocardial wall motion and contractility. Left ventricular wall thickness upper limits of normal. Ejection fraction is measured at 57%. Normal appearance of the aortic valve. No evidence of hemodynamically significant aortic stenosis by doppler. Trileaflet aortic valve. No aortic regurgitation. Normal appearance of the mitral valve. Trivial regurgitation of the mitral valve. There is no hemodynamically significant mitral stenosis by Doppler. No evidence for thrombus or vegetations are noted. Consider ANGELO if clinical suspicion is high. CT BRAIN: 05/06/18 No acute intracranial findings. Had US CAROTID 05/06/17: <50% stenosis in the right internal carotid artery. < 50% stenosis in the left internal carotid artery. He [place], [place] - [facility] 05/12/2022 13:23:26 06/29/2022 text/html 06/29/2022 CC: Cardiac follow up 46 year-old AAF with history of carotid artery stenosis, 2nd degree AV block type 1, Wenckebach, DM type I, hyperlipidemia, obesity, family history of premature OK (father with OK at 52), spontaneous R pneumothorax (about 2009, s/p gluing procedure of lung to chest wall per patient), anxiety, depression, who is seen in cardiac consultation. She was last seen in the clinic on 05/12/22, since then she had COVID-19 in early 03/2022. She had onset of palpitations in early 03/2022 a week before diagnosis with COVID. Palpitations were intermittent for 1 week in early 03/2022, then they resolved. She denies ER visits and hospitalizations since she was last seen. Reports home BP not assessed. {{No known history of coronary artery disease.* History of coronary artery disease reported.}} {{No history of previous myocardial infarction.* History of previous myocardial infarction reported.}} {{No history of heart failure.* History of heart failure reported.}} {{No known valvular heart disease.* History of valvular heart disease reported.}} {{No known arrhythmia. History of arrhythmia reported.*}} {{Patient reports feeling well overall.* Patient reports not feeling well sometimes.}} {{Patient is active, but is not exercising regularly.* Patient is active, exercising regularly. Patient is not very active, and is not exercising.}} {{No chest pain.* Chest pain reported. Exertional chest pain reported. Non-exertion al chest pain reported. Chest pain reported which is only sometimes associated with activity.}} {{No arm pain. Arm pain reported. L Arm pain reported, s/p frozen shoulder, positional.#}} {{No neck pain.* Neck pain reported.}} {{No nausea and vomiting.* Nausea and vomiting reported.}} {{No diaphoresis.* Diaphore sis reported.}} {{No shortness of breath at rest.* Shortness of breath at rest reported.}} {{No dyspnea on exertion.* Dyspnea on exertion reported.}} {{No fatigue. Fatigue reported.*}}{{No orthopnea.* Orthopnea reported.}} {{No PND.* PND reported.}} {{No leg swelling.* Leg swelling reported.}}Reports R thigh burning and numbness, without edema. {{No palpitation. Palpitati on reported.*}} {{No dizziness.* Dizziness reported.}} {{No syncope .* Syncope reported.}} {{No pre-syncope.* Pre-sync ope reported.}} {{No claudication.* Claudic ation reported.}} {{No major bleeding events.* Major bleeding event reported.}} {{No side effects from medications.* Side effects from medications reported.}} {{Complete ROS negative except as stated in the HPI. Complete ROS negative except as stated in the HPI and ROS.*}} No daytime somnolence. Reports snoring. Reports AM headache. Reports sense of poor sleep. LDL was 86 done on 05/29/18 . Pt dose not takes any statins. Previously, pt states that she has a lot of anxiety and recently was started on Lexapro with improvement of her symptoms including improvement of feeling palpitations. Previously, pt visited her [employer] and was started on meds for anxiety.Since on anxiety pill she states her palpitations significantly improved. Previously, patient complains for tightness at back and front of chest, on R side where she had surgery before for lung. Pt states that she developed spontaneous pnumothorax.. Had surgery at [facility]. Was told that had probably 'some thinning of lung since . Surgery was in 2012. tightness of R side of chest was present since then but it is resolved now. Had carotid U/S 06/08/22: mild B ICA stenosis < 50%. Had US CAROTID 05/06/17: <50% stenosis in the right internal carotid artery. < 50% stenosis in the left internal carotid artery. Previously, she had at [facility]: ECHO which showed normal LV systolic function. Obtained echo 05/27/22: Study quality: Technically difficult. Technical limitations- poor acoustic window, body habitus. LV chamber size is normal. LV wall thickness is normal. The estimated left ventricle ejection fraction is greater than 55% (normal). The aortic valve leaflet is mildly thickened. There is mild thickening of the mitral valve anterior leaflet. Had ECHO: 05/14/17 Normal left ventricular systolic function. No focal wall motion abnormality. Normal left ventricular size. Definity contrast agent used to visually enhance endocardial wall motion and contractility. Left ventricular wall thickness upper limits of normal. Ejection fraction is measured at 57%. Normal appearance of the aortic valve. No evidence of hemodynamically significant aortic stenosis by doppler. Trileaflet aortic valve. No aortic regurgitation. Normal appearance of the mitral valve. Trivial regurgitation of the mitral valve. There is no hemodynamically significant mitral stenosis by Doppler. No evidence for thrombus or vegetations are noted. Consider ANGELO if clinical suspicion is high. Had treadmill nuclear stress test (PROC) 05-27-2018: Negative stress test for ischemia. Normal LV systolic function. Artifact noted. No previous study to compare. LVEF 60%. Had 30 day monitor 06/04/22: NSR, SR with 2nd degree AV block type 1, Wenckebach (43 bpm). Results from this visit, or from the past: Had 06/13/22 CMP: NA 139, K 4.0, CL 102, CO2 31, BUN 16, CR 0.80, BMP: GL 130, CA 8.8, MG 1.7, AST 22, ALT 9, TR 58, CH 163, LDL 81 04/20/22: hgb 13.0, K 4.3, Cr 0.8, TSH 1.84, LDL 93, 05/30/18: Na 136 ,K 4.2 , CL 98 ,CO2 28, GLU 147, BUN 15 , CR 0.70, 05/30/18: TC 158 ,TG 65,HDL 47,LDL 86, 05/30/18: HgA1c 8.8 04/30/17: HB 12.1, HT 37.7 electrocardiogram EKG: low voltage, chest leads, probably old lateral mycardial dial infarction. EKG (05/12/18): NSR poor R progression, NSST changes US, echocardiogram 05-27-2022: Study quality: Technically difficult. Technical limitations- poor acoustic window, body habitus. LV chamber size is normal. LV wall thickness is normal. The estimated left ventricle ejection fraction is greater than 55% (normal). The aortic valve leaflet is mildly thickened. There is mild thickening of the mitral valve anterior leaflet. Had ECHO: 05/14/17 Normal left ventricular systolic function. No focal wall motion abnormality. Normal left ventricular size. Definity contrast agent used to visually enhance endocardial wall motion and contractility. Left ventricular wall thickness upper limits of normal. Ejection fraction is measured at 57%. Normal appearance of the aortic valve. No evidence of hemodynamically significant aortic stenosis by doppler. Trileaflet aortic valve. No aortic regurgitation. Normal appearance of the mitral valve. Trivial regurgitation of the mitral valve. There is no hemodynamically significant mitral stenosis by Doppler. No evidence for thrombus or vegetations are noted. Consider ANGELO if clinical suspicion is high. CT BRAIN: 05/06/18 No acute intracranial findings. Had US CAROTID 05/06/17: <50% stenosis in the right internal carotid artery. < 50% stenosis in the left internal carotid artery. He dubois [place] - [facility] 06/29/2022 16:19:18 OBGyn Episode No OBEpisode recorded.
--- OUTSIDE RECORDS SUMMARY | 2024-11-06 00:52 | XMS_ITS ---
Author Organization [facility] [place] ([address]) Address [address] [place] [address] Care Team Providers Care Manager Area Name Role Phone Cem LERNER, Clayton Primary Care Provider Unavaila Briseyda Perez Unavailable [phone] REASON FOR VISIT ARC follow-up Encounters Encounter Location Date Provider Diagnosis [facility] [address] [place] [address] 06/07/2024 Briseyda Moon Plan Of Treatment No Information Progress Notes * Kit RIDLEYDOB:1975 ( 49 yo F)Acc No.[id number]:06/07/2024 Progress Notes Patient: Kit LEWIS Provider: Kaleb Moon MD :1975 A ge:48 Y S ex:Female Date:06/07/2024 Address:[address] [place], [place] [phone] Pcp:Clayton Priest MD Subjective: * Chief Complaints: * 1 . ARC follow-up. * Medical History: Objective: * Vitals: Assessment: Plan: * Treatment: * Billing Information: * Visit Code: * Procedure Codes: * Electronic signature of Cadence Moon MD on 11/06/2024 at 12:52 AM CDT Sign off status: Pending * Provider: Kaleb Moon MD Date: 1 08/07/2023 Generated for Jackeline dawson/Agapito/Linda on: 0 11/06/2024 12:52 AM JENNIFERT
--- OUTSIDE RECORDS SUMMARY | 2024-11-06 00:52 | XMS_ITS | Clinical Summary ---
Author Organization [facility] Address [address] [place] [address] Care Team Providers Care Datastage Consultant Name Role Phone Unavailable Primary Care Provider [...]
--- OUTSIDE RECORDS SUMMARY | 2024-11-06 00:52 | XMS_ITS | Patient Health Record ---
Author Organization [facility] [place] ([address]) Address [address] [place] [address] Care Team Providers Care Sephora Product Consultant Name Role Phone Clayton Priest MD Primary Care Provider Briseyda Mcguire Unavailable [phone] Allergies Allergen (clinical drug ingredient) Drug/Non Drug [...] Status Risk Notes Problem Chronic allergic conjunctivitis (28907468) Other chronic allergic conjunctivitis (H10.45) Active confirmed Problem Allergic rhinitis caused by pollen (disorder) (99226265) Allergic rhinitis due to pollen (J30.1) Active confirmed Problem Allergic rhinitis (45390038) Other allergic rhinitis (J30.89) Active confirmed Problem Food allergy (063774756) Allergy to other foods (Z91.018) Active confirmed Problem Allergic rhinitis caused by animal hair and dander (868751301223311) Allergic rhinitis due to animal (cat) (dog) hair and dander (J30.81) Active confirmed Vital Signs Oximetry 100 % 05/09/2024 Blood pressure diastolic 77 mm Hg 05/09/2024 Height 65 in 05/09/2024 Blood pressure systolic 125 mm Hg 05/09/2024 Weight 184.8 lbs 05/09/2024 BMI 30.75 kg/m2 05/09/2024 Encounters Encounter Location Date Provider Diagnosis [facility] [address] [place] [phone] 05/09/2024 Briseyda Moon Dermatitis due to ingested [...] to cosmetics L23.2 and Dermatitis, unspecified L30.9 [facility] [address] [place] [phone] 09/18/2024 Briseyda Moon Allergic rhinitis du e [...] Coverage End Date [employer] [address] [place] [address] [id number] I [id number] Kit Vaz Self - patient is the insured 4 Medical (General) History Medical History History ICD Code Type I diabetes Surgical History Surgery Date(Month/Year) Collapsed lung Endometriosis
--- OUTSIDE RECORDS SUMMARY | 2024-11-06 00:52 | XMS_ITS ---
Author Organization [facility] [place] ([address]) Address [address] [place] [address] Care Team Providers Care Roll On Worker Name Role Phone Clayton Priest MD Primary Care Provider Unavaila Briseyda Perez Unavailable [phone] REASON FOR VISIT Rx Medications Medication SIG (Take, Route, Frequency, Duration) Notes Start Date End Date Status Azelastine HCl 137 MCG/SPRAY 2 sprays in each nostril Nasally Twice a day for 30 days 05/09/2024 Active Triamcinolone Acetonide 0.1 % 1 application Externally Twice a day for 30 days 05/09/2024 Active Encounters Encounter Location Date Provider Diagnosis [facility] [address] [place] [address] 09/18/2024 Briseyda Moon Allergic rhinitis due to [...] for 30 days 05/09/2024 Progress Notes * Kit RIDLEYDOB:1975 ( 49 yo F)Acc No.[id number]:09/18/2024 Patient: Kit LEWIS :1975 A ge:49 Y S ex:Female Address:[address] [place] [address], [address] * Refills Refill Azelastine HCl Solution, 137 MCG/SPRAY, Nasally, 1, 2 sprays in each nostril, Twice a day, 30 days, Refills=0 Refill Triamcinolone Acetonide Ointment, 0.1 %, Externally, 454, 1 application, Twice a day, 30 days, Refills=0 * true * Date: Generated for Jackeline dawson/Agapito/Andreinaitting on: 0 11/06/2024 12:52 AM CDT
--- OUTSIDE RECORDS SUMMARY | 2024-11-06 00:52 | XMS_ITS | Encounter Summary ---
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
--- OUTSIDE RECORDS SUMMARY | 2024-11-06 00:53 | XMS_ITS | Clinical Summary ---
Author Organization [facility] [address] Address [address] [place] [address] Care Team Providers Care Design Quality Engineer Name Role Phone Clayton Priest MD Primary Care Provider Allergies Active Allergy Reactions Criticality Noted Date Comments Adhesive Other (See comments) Low 06/12/2024 Dupont Oil Anaphylaxis High 05/31/2014 Atorvastatin Swelling,Other (See comments) Medium 2022 Ezetimibe Swelling High 2022 Lisinopril Angioedema High 02/28/2024 Throat swelling Losartan Other (See comments) Low 02/28/2024 Welts in mouth Hyntxka-Mal-Aug Reductase Inhibitors Edema High 10/14/2023 Medications blood [...] infection. Assessment & Plan (06/12/2024 11:17 AM CANVAS GOODS MAKER): Chronic problem. A1c uncontrolled & worsened from 8.8% 02/28/24 to now 9.4%. Not adequately giving insulin; fearful of lows (maybe once/mo). Discussed poor control & increasing A1c (uncontrolled). Discussed inpen that she'd been on in the past. Website given for [employer] to contact to see if insurance will [...] the past. Contact info for Carlito at [employer] if she'd like to see about costs/coverage. [...] date Assessment & Plan (2022 12:52 PM CANVAS GOODS MAKER): -Currently using Tandem insulin pump and Dexcom [...] date Assessment & Plan (06/25/2021 12:34 PM CANVAS GOODS MAKER): -Currently using Tandem insulin pump and Dexcom [...] time. Assessment & Plan (2022 12:52 PM CANVAS GOODS MAKER): -BP today is 133/83 -Will continue same [...] time. Assessment & Plan (06/25/2021 12:34 PM CANVAS GOODS MAKER): -BP today is 127/82 -Will continue same antihypertensive medications at this time. Assessment & Plan (07/20/2019 3:58 PM CANVAS GOODS MAKER): Blood pressure is working/76 today. Continue same medications. Assessment & Plan (02/03/2019 8:10 AM CDT): BP stable. Continue same medications. 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 Normotensive without any antihypertensives. No changes at this time. Assessment & Plan (02/28/2024 10:15 AM CDT): Chronic problem. Normotensive without any antihypertensives. No changes at this time. Snoring 05/12/2018 12/28/2022 Assessment & Plan (09/14/2022 11:08 AM CANVAS GOODS MAKER): The patient presents with snoring and morning fatigue/tiredness. Per her request, I have ordered a home sleep test and she will follow-up with me in 3 months. Encounters Date Type Department Care Team Description 10/17/2024 Orders Only [facility] Medical [facility] Diabetes and Endocrinology [address] [place] [phone] ProviderSravan MD 10/11/2024 Telephone [facility] Diabetes and Endocrinology [address] [place] [phone] Makenna Eng NP request for surgical clearance 10/03/2024 Results Follow-Up [facility] Diabetes and Endocrinology [address] [place] [phone] Makenna Eng NP 10/02/2024 3:45 PM CDT Lab [facility] Outpatient Lab at [address] [address] Type 1 diabetes mellitus (HCC) (Primary Dx); Essential hypertension 10/02/2024 3:42 PM CDT - 10/02/2024 11:59 PM CDT Hospital Encounter [address] [address] Type 1 diabetes mellitus with hyperglycemia (HCC) Discharge Disposition: Discharge to home or self care 10/02/2024 3:00 PM CDT Office Visit [facility] Diabetes and Endocrinology [address] [place] [phone] Makenna Eng, RANDELL Type 1 diabetes [...] on file Legal Sex Female 2:16 AM CANVAS GOODS MAKER Gender Identity Not on file Sexual Orientation [...] CDT 10/03/2024 10:32 AM CDT Makenna Eng EMR TRAINER LAB BLOOD ORDERABLES Bianka l Result Performing Organization Address [facility] Co de Phone Number KARLEY [address] [address] [facility] [place] [address] * Albumin Creatinine Ratio, Urine (10/02/2024 3:42 [...] 10/03/2024 10:18 AM CDT us Makennaharsh Eng EMR TRAINER LAB URINE ORDERABLES Bianka l Result Performing Organization Address [facility] de Phone Number KARLEY [address] [address] [facility] [place] [address] * Lipid panel (10/02/2024 3:42 PM CDT) [...] NP LAB BLOOD ORDERABLES Bianka leon Result [facility] [address] Department [place] [address] * (ABNORMAL) Comprehensive metabolic panel (10/02/2024 3:42 [...] CERNER Glucose 111 70 - 199 mg/dL [facility] Comment: Interpretive Data Fasting glucose >/= 126 [...] LAB BLOOD ORDERABLES Bianka l Result KARLEY [address] Department [place] [address] * (ABNORMAL) POCT hemoglobin A1c (10/02/2024 2:49 [...] [place]LOOD [place] [address] [address] Department [place] [address] from Last 3 Months or Most Recently Relevant to Health Maintenance [facility] [id number] [facility] [id number] [facility] [id number] Care Teams Design Quality Engineer Relationship Specialty Start Date End Date Clayton Priest MD [address] [place] [address] PCP - General 10/13/16
--- OUTSIDE RECORDS SUMMARY | 2024-11-06 00:53 | XMS_ITS | Referral Summary ---
Author Organization [facility] [address] Address [address] [place] [address] Care Team Providers Care Drafter Electronic Name Role Phone Clayton Priest MD Primary Care Provider Encounters Date Type Department Care Team Description 10/17/[address] [facility] Medical [facility] Diabetes and Endocrinology [address] [place] [phone] ProviderSravan MD 10/11/2024 Telephone [facility] Diabetes and Endocrinology [address] [place] [phone] Makenna Eng NP request for surgical clearance 10/03/2024 Results Follow-Up [facility] Diabetes and Endocrinology [address] [place] [phone] Makenna Eng NP 10/02/2024 3:42 PM CDT - 10/02/2024 11:59 PM CDT Hospital Encounter [address] [address] Type 1 diabetes mellitus with hyperglycemia (HCC) Discharge Disposition: Discharge to home or self care 10/02/2024 3:[address] [facility] Medical [facility] Outpatient Lab at [address] [phone] Type 1 diabetes mellitus (HCC) (Primary Dx); Essential hypertension 10/02/2024 3:00 PM CDT Office Visit [facility] Diabetes and Endocrinology [address] [place] [phone] Maeknna Eng, RANDELL Type 1 diabetes mellitus with hyperglycemia (HCC) (Primary Dx) from Last 3 Months Allergies Active Allergy Reactions Criticality Noted Date Comments Adhesive Other (See comments) Low 06/12/2024 Douglas Oil Anaphylaxis High 05/31/2014 Atorvastatin Swelling,Other (See comments) Medium 2022 Ezetimibe Swelling High 2022 Lisinopril Angioedema High 02/28/2024 Throat swelling Losartan Other (See comments) Low 02/28/2024 Welts in mouth Hohsazi-Xis-Gge Reductase Inhibitors Edema High 10/14/2023 Medications blood [...] infection. Assessment & Plan (06/12/2024 11:17 AM FINANCIAL INVESTIGATOR): Chronic problem. A1c uncontrolled & worsened from 8.8% 02/28/24 to now 9.4%. Not adequately giving insulin; fearful of lows (maybe once/mo). Discussed poor control & increasing A1c (uncontrolled). Discussed inpen that she'd been on in the past. Website given for [employer] to contact to see if insurance will [...] the past. Contact info for Carlito at [employer] if she'd like to see about costs/coverage. [...] date Assessment & Plan (2022 12:52 PM FINANCIAL INVESTIGATOR): -Currently using Tandem insulin pump and Dexcom [...] date Assessment & Plan (06/25/2021 12:34 PM FINANCIAL INVESTIGATOR): -Currently using Tandem insulin pump and Dexcom [...] time. Assessment & Plan (2022 12:52 PM FINANCIAL INVESTIGATOR): -BP today is 133/83 -Will continue same [...] time. Assessment & Plan (06/25/2021 12:34 PM FINANCIAL INVESTIGATOR): -BP today is 127/82 -Will continue same antihypertensive medications at this time. Assessment & Plan (07/20/2019 3:58 PM FINANCIAL INVESTIGATOR): Blood pressure is working/76 today. Continue same medications. Assessment & Plan (02/03/2019 8:10 AM CDT): BP stable. Continue same medications. Abnormal thyroid function test 03/24/2018 correction current use of insulin 03/29/2015 Diabetic hypoglycemia 02/11/2006 Resolved Problems Problem Noted Date Diagnosed Date Resolved Date Hypertension associated with type 1 diabetes mellitus 02/23/2024 06/12/2024 Assessment & Plan (06/12/2024 10:46 AM FINANCIAL INVESTIGATOR): Chronic problem. Normotensive without any antihypertensives. No changes at this time. Assessment & Plan (02/28/2024 10:15 AM CDT): Chronic problem. Normotensive without any antihypertensives. No changes at this time. Snoring 05/12/2018 12/28/2022 Assessment & Plan (09/14/2022 11:08 AM FINANCIAL INVESTIGATOR): The patient presents with snoring and morning [...] on file Legal Sex Female 2:16 AM FINANCIAL INVESTIGATOR Gender Identity Not on file Sexual Orientation [...] ORDERABLES Bianka l Result Performing Organization Address [facility] Co de Phone Number KARLEY [address] [address] Department [place] [address] * Albumin Creatinine Ratio, Urine (10/02/2024 3:42 [...] 10/03/2024 10:18 AM CDT us Makenna Eng ZIPPER MACHINE OPERATOR LAB URINE ORDERABLES Bianka l Result Performing Organization Address [facility] de Phone Number KARLEY [address] [address] [place] [address] * Lipid panel (10/02/2024 3:42 PM CDT) [...] NP LAB BLOOD ORDERABLES Bianka l Result [facility] [address] [address] [place] [address] * (ABNORMAL) Comprehensive metabolic panel [...] BLOOD ORDERABLES Bianka l Result [facility] [address] [address] Department [place] [address] * (ABNORMAL) POCT hemoglobin A1c [...] BLOOD ORDERABLES Final Resul t KARLEY JOHN [address] Department [place] [address] from Last 3 Months or Most Recently Relevant to Health Maintenance Insurance [facility] [id number] [place] [id number] [facility] [id number] Care Teams Drafter Electronic Relationship Specialty Start Date End Date Clayton Priest MD [address] [place] [address] PCP - General 10/13/16
--- OUTSIDE RECORDS SUMMARY | 2024-11-06 00:53 | XMS_ITS | Data Portability ---
Author Organization [place] [facility], Main Office Address [address] [place] [address] Care Team Providers Care Site Worker Name Role Phone MONIE UMANA Primary Care Provider [phone] MONIE UMANA Referring Provider [phone] Assessment Encounter Date Assessment Date Assessment LastModified [...] more than half the time spent in ljdc-bn-bjip care. Not available 03/15/2023 19:42:46 06/18/2023 06/18/2023 [...] more than half the time spent in dgcb-vx-qssb care. Not available 06/18/2023 10:26:01 08/16/2023 08/16/2023 [...] to work on Wednesday. 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 She assures me that if the [...] DO Not Attach Compendium, Do Not Delete/merge, [id number] 12:06:29 Surgeries None recorded. Imaging XR, hand 2022 023 [email or web address] [facility] [place], [address], [place], [address], 3 10:13:59 Medication Orders Kenalog 10 mg/mL suspension for injection 2022 023 [email or web address] [facility] #[id number], [address], [place], [place], [id number], 4 12:53:43 ropivacaine (PF) 5 mg/mL (0.5 %) injection solution 2022 023 [facility] #[id number], [address], [place], [place], [id number], 3 09:55:13 ibuprofen 800 mg tablet 2022 023 [email or web address] [facility] #[id number], [address], [place], [place], [id number], 4 12:53:38 Patient TargetsNo targets recorded. Patient InstructionsNo instructions recorded. Reason for Referral None Reported. Results Created Date Observation Date Name Description Value Unit Range Abnormal Flag Note LastModifiedBy Organization Detail LastModifiedTime 05/08/20 22 XR, hand, 3 or more view No observ ation record ed. [id number] [facility] [place] [address], [address], 2022 01:01:08 03/05/20 23 XR, hand No observ ation record ed. [email or web address] [facility] [place] [address], [place], [address], 03/05/2023 11:44:26 07/27/19 24 07/26/2023 jagruti trujillogr am No observ ation record ed. [email or web address] Not Available 2023 11:57:10 Result Notes None recorded. Problems Name Problem SNOMED Code Status Onset Date Resolution Date Notes Provider Name and Address Organization Details Recorded Time Trigger finger of right hand 9008099607072 9101 Active 2022 Not Available [facility] 3 00:59:51 Pain of left shoulder joint 8224306304499 9109 Active 2021 Not Available [facility] 3 00:59:51 Adhesive capsulitis of left shoulder 4720223651008 07 Active 2021 Not Available [facility] 3 00:59:51 Pain in right hand 2942176979769 09 Active 2021 Not Available [facility] 3 00:59:52 Tenosynovi tis of fingers 188001268 Active 2022 SANA Torres, [place] [facility] 3 09:56:20 Problem Notes None recorded. Procedures Surgical History Date Name Laterality Status Provider Name and Address Organization Details Recorded Time operation on lung completed Not Available [facility] 2022 00:58:32 Imaging Results Imaging Date Name Status LastModified by Organization Details LastModified Time 05/08/2022 XR, hand, 3 or more view completed [id number] [facility] [place] [address] [facility] [address], [place], [address], 2022 01:01:08 03/05/2023 XR, hand completed [email or web address] [facility] [place] [address], [place], [address], 03/05/2023 11:44:26 07/26/2023 electrocardiogram completed [email or web address] Informa tion not available 07/27/2023 11:57:10 Procedure Notes None recorded. Medical Equipment None Reported. 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 null, [place] [facility] [employer] [facility] 3 11:39:57 57267 adhesive environme nt,medica tion Not available Not available Not available 03/05/2023 75556 UNK garcia ges Dona Heredia, 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 null, [facility] [employer] [facility] [employer] 11:43:53 Medications Name Sig Start Date Stop [...] , administe red by provider 06/18 completed [facility] 15435 [phone] Not Available Not Available Not [...] Updated DateTime 05/08/2022 162.56 cm Not Available [facility] 3 00:59:15 Date Recorded Body height Provider Name an d Address Organization Details Last Updated DateTime 07/29/2022 162.56 cm Not Available [facility] 3 00:59:15 Date Recorded Body height Body mass index (BMI) Body weight Provider Name and Address Organization Details Last Updated DateTime 03/05/2023 167.64 cm 33.1 kg/m2 47631.44 g 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[employer] [facility] 03/05/2023 11:47:21 Date Recorded Body height Provider Name an d Address Organization Details Last Updated DateTime 06/18/2023 167.64 cm SANA Torres [employer] [facility] 06/18/2023 09:54:47 Date Recorded Body height Provider Name an d Address Organization Details Last Updated DateTime 08/16/2023 167.64 cm 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 None [id number] Information not available 2022 Sex: Unknown Functional Status None recorded. Mental Status None recorded. Family History Relationship Description Onset Age of this Age Resolved Age Notes LastModified by Organization Details LastModified Time Maternal Aunt Family history of malignant neoplasm [id number] [id number] Not available 2022 00:58:34 Maternal Uncle Family history of malignant neoplasm MIGRATION.698 [id number] Not available 2022 00:58:34 Maternal Uncle Hypertensive disorder [id number].182 [id number] Not available 2022 00:58:34 Mother Hypertensive disorder MIGRATION.527 [id number] Not available 2022 00:58:34 Father Diabetes mellitus MIGRATION.004 [id number] Not available 2022 00:58:34 Maternal Grandfather Diabetes mellitus MIGRATION.896 [id number] Not available 2022 00:58:34 Paternal Grandmother Diabetes mellitus MIGRATION.056 [id number] Not available 2022 00:58:34 Paternal Aunt Family [...] SCHIZOPHRENIA N SHINGLES N SHOULDER PAIN N BOWEL PROBLEMS N DEPRESSION (INCLUDING POST ) N STROKE/TIA N ULCERS N KNEE PAIN [...] HAVE YOU BEEN HOSPITALIZED OR SEEN IN [facility] IN THE PAST YEAR ? N [...] SNOMED-CT Code Diagnosis ICD10 Code Diagnosis Note [id number] [facility] [place] [address] [address] [facility] [address] [place] [address] 01/09/2022 00:00:00 01/12/2022 08:34:01 [id number] [facility] [place] [address] [place], [place] [address] 03/02/2022 00:00:00 03/02/2022 14:24:35 [id number] [facility] [place] [address] [place] [address] 05/08/2022 00:00:00 05/08/2022 11:06:40 [id number] [facility] [place] [address] [place] [address] 07/29/2022 00:00:00 07/29/2022 09:02:46 [id number] Gomez Paulino MD [facility] [place] [address] [place] [address] 03/05/2023 10:28:32 03/16/2023 10:13:58 Pain in right hand 7259028277 62729 M79.348 [id number] Gomez Paulino MD [facility] [place] [address] [place] [address] 06/18/2023 09:51:48 06/18/2023 10:32:19 Tenosynovitis of fingers 811420736 M65.776 [id number] Gomez Paulino MD [facility] [place] [address] [place] [address] 08/16/2023 12:47:12 08/16/2023 17:36:19 Pain in right hand 7283711757 20208 M79.641 Postoperative visit 1836 40884 Z48.89 Health Concerns Section Related Observation LastModified by Organization Detai ls LastModified Time None Recorded Concern Status LastModified by Organization Details LastModified Time None Recorded Advance Directives Directive None Recorded Payers Encounter Date Sequence Insurance Name Policy Number Policy Lamas Covered Member ID Lamas Member ID Guarantor Name 03/05/2023 1 [employer] Tayana Long [id number] OI Tayana Long 06/18/2023 1 [employer] Tayana Long [id number] OI Tayana Long 08/16/2023 1 [employer] Tayana Long [id number] OI Tayana Long Notes Date Note Type [...] normal rheumatoid factor. Gomez Paulino MD [address] [facility] [facility] [address], [place], [address], [facility] 03/15/2023 19:42:59 OBGyn Episode No OBEpisode recorded.
--- NOTE | 2024-11-06 07:31 | WPDHPUPDATE1 ---
History and Physical Update Update Date/Time: 11/06/24 07:31 History and Physical has been reviewed, including an updated exam of the patient. There are NO changes in the patient's condition. Risks, benefits, and alternatives have been discussed and questions answered. Patient agrees to proceed with procedure.
--- NOTE | 2024-11-06 07:32 | P.HP_ITS ---
History of Present Illness History of Present Illness Consent: Risks, benefits, and alternatives have been discussed and questions answered. Patient agrees to proceed with procedure. Chief complaint: right hydrosalpinx Narrative: Kit Vaz is a 49 year old female with right pelvic pain. Pelvic ultrasound showed a right hydrosalpinx. The patient was observed and the pain improved but persisted and she has elected to have the right tube removed. It was discussed that the right tube may be very adherent to the right ovary. If needed we can also proceed with removal of the right ovary as the patient is postmenopausal. Patient does not want an open procedure for the pain. Only wants an open procedure in an emergency situation. Risks of surgery were reviewed including risk of infection, bleeding, injury to internal organs (especially bowel, bladde r, ureters, ovaries, uterus), general anesthesia and DVT. Patient voices understanding and agrees to proceed. Review of Systems Review of Systems: not repeated day of surgery; patient states no changes in status PMFSH Past Medical History Medical History (Updated 11/06/24 @ 07:37 by Laila Rhodes MD) Food allergy Chronic constipation Adhesive capsulitis of left shoulder Inflammatory arthritis Hypertension History of blood transfusion Pneumothorax history of surgery same Respiratory disorder Chest surgery due to pleurodesis Anxiety Type 1 diabetes Fibroids Endometriosis Surgical History Surgical History (Updated 11/06/24 @ 07:36 by Laila Rhodes MD) History of hysteroscopy 2022 polyps found History of exploratory laparotomy x2 for endometriosis in the distant past History of breast biopsy H/O laparoscopy History of lung surgery due to pneumothorax Family History Family History Mother Hypertension Father Family history of diabetes mellitus in first degree relative Family history of coronary artery disease Social History Social History Smoking status: Never smoker Second hand tobacco smoke exposure: No Alcohol intake: never Substance use: never Substance use type: does not use Do You Feel Safe in your Home?: Yes Lack of Transportation: No Lack of Food: Never True Current Housing: I Have Housing Concerned About Future Housing: No Difficulty Paying Gas/Electric Bills: No Difficulty Paying for Meds: No Currently Unemployed: No Education: Don't Know Difficulty w/ Childcare or Family Care: No Living arrangements: with family Additional living arrangements comments: lives with 12 yo daughter Occupation/Education: occupation Gender identity (if verbalized by the patient): Female Sexual Orientation (if Verbalized by the Patient): Straight or Heterosexual Spiritual care concerns: No Meds Home Medications and Allergies Home Medications ?Medication ?Instructions ?Recorded ?Confirmed ?Type insulin aspart U-100 100 unit/mL 75 unit subcut DAILY 06/29/22 10/30/24 History subcutaneous solution (Novolog U-100 Insulin aspart) insulin degludec 100 unit/mL (3 22 unit subcut QAM 07/22/23 10/30/24 History mL) subcutaneous pen (Tresiba FlexTouch U-100 insulin) tirzepatide 5 mg/0.5 mL 5 mg subcut WEEKLY 07/22/23 10/30/24 History subcutaneous pen injector (Mounjaro) cetirizine 10 mg tablet (24Hour 10 mg PO DAILY PRN allergy symptoms 10/30/24 10/30/24 History Allergy) loratadine 10 mg tablet (Claritin) 10 mg PO DAILY PRN allergy symptoms 10/30/24 10/30/24 History Allergies Allergy/AdvReac Type Severity Reaction Status Date / Time almond Allergy Severe THROAT Verified 10/30/24 15:31 SWELLING atorvastatin Allergy Severe Anaphylactic Verified 10/30/24 15:31 Shock ezetimibe (From Zetia) Allergy Severe Swelling Verified 10/30/24 15:31 of Lip/Tongue/Throat adhesive tape Allergy Mild RASH Verified 10/30/24 15:31 losartan AdvReac Severe Swelling Verified 10/30/24 15:31 of Lip/Tongue/Throat Exam Const: General: healthy appearing and alert Orientation/consciousness: patient oriented x3 Resp: Effort & Inspection: normal respiratory effort GI: GI Palp: Yes Soft to palpation, No Tenderness to palpation present (GI) and No Palpable mass present : External Female Exam: normal external appearance Speculum Exam - Vagina: normal appearance of the vagina and normal vaginal discharge Speculum Exam - Cervix: normal appearance of the cervix Bimanual exam- vagina & uterus: uterine size normal and consistency normal Bimanual Exam- Adnexa, other: normal adnexae and No adnexal tenderness Neuro: General: patient oriented x3 Assessment and Plan Assessment and plan (1) Pelvic pain: Code(s): R10.2 - Pelvic and perineal pain Status: Acute Assessment and Plan: Plan to proceed with removal of right fallopian tube and possibly right ovary.
[2024-11-06 09:21] LABS: Glucose Point of Care 144 mg/dl (65-105)
--- NOTE | 2024-11-06 09:23 | P.PNAN_ITS ---
Anes - Initial Pre Proc Eval Procedure: Operation Date: 11/06/24 10:30 Proposed Procedures p Laparoscopic Right Salpingectomy, Possible Right Oophorectomy - Laila Rhodes MD Date/Time: 11/06/24 09:23 Surgeon: Laila Rhodes MD Pre Op Diagnosis: right hydrosalpinx Patient Data Age: 49 Gender: F Height: 1.68 m Weight: 85 kg Allergies Allergy/AdvReac Type Severity Reaction Status Date / Time almond Allergy Severe THROAT Verified 10/30/24 15:31 SWELLING atorvastatin Allergy Severe Anaphylactic Verified 10/30/24 15:31 Shock ezetimibe (From Zetia) Allergy Severe Swelling Verified 10/30/24 15:31 of Lip/Tongue/Throat adhesive tape Allergy Mild RASH Verified 10/30/24 15:31 losartan AdvReac Severe Swelling Verified 10/30/24 15:31 of Lip/Tongue/Throat Home Medications ?Medication ?Instructions ?Recorded ?Confirmed ?Type insulin aspart U-100 100 unit/mL 75 unit subcut DAILY 06/29/22 10/30/24 History subcutaneous solution (Novolog U-100 Insulin aspart) insulin degludec 100 unit/mL (3 22 unit subcut QAM 07/22/23 10/30/24 History mL) subcutaneous pen (Tresiba FlexTouch U-100 insulin) tirzepatide 5 mg/0.5 mL 5 mg subcut WEEKLY 07/22/23 10/30/24 History subcutaneous pen injector (Mounjaro) cetirizine 10 mg tablet (24Hour 10 mg PO DAILY PRN allergy symptoms 10/30/24 10/30/24 History Allergy) loratadine 10 mg tablet (Claritin) 10 mg PO DAILY PRN allergy symptoms 10/30/24 10/30/24 History Laboratory Tests 11/06/24 09:15 POC Capillary Glucose 144 H mg/dl (65-105) Patient hx anesthesia problems: none Family hx anesthesia problems: none Results Review: All pre-operative results and documents have been reviewed as part of the pre- operative evaluation. [facility] Past Medical History Medical History (Updated 11/06/24 @ 07:37 by Laila Rhodes MD) Food allergy Chronic constipation Adhesive capsulitis of left shoulder Inflammatory arthritis Hypertension History of blood transfusion Pneumothorax history of surgery same Respiratory disorder Chest surgery due to pleurodesis Anxiety Type 1 diabetes Fibroids Endometriosis Surgical History Surgical History (Updated 11/06/24 @ 07:36 by Laila Rhodes MD) History of hysteroscopy 2022 polyps found History of exploratory laparotomy x2 for endometriosis in the distant past History of breast biopsy H/O laparoscopy History of lung surgery due to pneumothorax Family History Family History Mother Hypertension Father Family history of diabetes mellitus in first degree relative Family history of coronary artery disease Social History Social History Smoking status: Never smoker Second hand tobacco smoke exposure: No Alcohol intake: never Substance use: never Substance use type: does not use Do You Feel Safe in your Home?: Yes Lack of Transportation: No Lack of Food: Never True Current Housing: I Have Housing Concerned About Future Housing: No Difficulty Paying Gas/Electric Bills: No Difficulty Paying for Meds: No Currently Unemployed: No Education: Don't Know Difficulty w/ Childcare or Family Care: No Living arrangements: with family Additional living arrangements comments: lives with 12 yo daughter Occupation/Education: occupation Gender identity (if verbalized by the patient): Female Sexual Orientation (if Verbalized by the Patient): Straight or Heterosexual Spiritual care concerns: No Anes - Eval Final PreProcedure Day of Procedure 11/06/24 09:23 Patient weight: obese Heart: regular rate and rhythm Lungs: clear to auscultation Airway: Mallampati scale class III Neurological: alert and oriented Last oral intake: >/= 8 hours ASA classification: III Emergent: no Anesthetic plan: proceed Anesthesia type and monitoring: general ETT and standard monitoring Results Review: All pre-operative results and documents have been reviewed as part of the pre- operative evaluation. Informed Consent: The patient's anesthetic plan and its attendant risks and benefits were discussed with the patient/family/POA. Questions were solicited and answers provided to the satisfaction of the patient/family/POA.
[2024-11-06] MEDS: ACETAMINOPHEN 500 MG TABLET 1000 MG PO (09:41)
[2024-11-06] MEDS: LACTATED RINGERS 1,000 ML 30 ML IV CONT (09:41)
[2024-11-06] MEDS: ceFAZolin 2 GM/D5W 50 ML 2 GM/50 ML BAG IVPB (10:09)
[2024-11-06] MEDS: KETOROLAC 15 MG/ML VIAL (*BKC) IV PUSH (10:46)
--- NOTE | 2024-11-06 10:57 | P.OP_ITS ---
Procedure Note - Detailed Date of Procedure 11/06/24 Pre-op Diagnosis right hydrosalpinx Post-op Diagnosis Same ( extensive scar tissue throughout pelvis) Procedure Performed diagnostic laparoscopy Surgeon Laila Rhodes MD Anesthesia General Findings The cervix is pulled up and to the left. The pelvis is completely scarred. The uterus is identifiable but the tubes, ovaries, cul-de-sac are completely scarred over. Description of Procedure the patient was taken to the operating room and placed under anesthesia in the dorsal lithotomy position. She was prepped and draped in the usual sterile fashion. The bladder was drained with a red rubber catheter. The bivalve speculum was placed in the vagina and the cervix grasped on the anterior lip with a tenaculum. The cervix was noted to be pulled very left and anterior. The acorn manipulator was placed and the speculum removed. Attention was then turned to the abdomen where a vertical skin incision was made at the base of the umbilicus. The Veress needle is placed with an opening patient pressure of 6mmHg. Pneumoperitoneum was obtained to a patient pressure of 15mmHg. The Veress needle was then removed. The 5mm Optiview to trocar is placed. Intra- abdominal placement was confirmed with the laparoscope. The patient was placed in Trendelenburg and 2 additional 5mm ports are placed in the right and left lower quadrant under direct visualization. The blunt probe was used to move the bowel out of the surgical field and upon doing this the uterus and surrounding tissues are visible. No visible tube or ovary are identified. The adnexa were completely scarred over and the sidewall is not visible. Similarly, the cul-de-sac is completely obliterated. Using a blunt probe along with visible scar lines, I tried to see if there was a simple plane to get into the scar tissue. There was no plane that opened. Decision was made to stop the procedure as the patient did not want an open exploratory surgery unless it was an emergency. The pneumoperitoneum was reduced and the trocars removed. The skin incisions are closed using 4 0 nylon in an interrupted fashion. Vaginal instruments are removed. The patient was awakened from anesthesia and taken to recovery in stable condition. Sponge, needle, and instrument counts are correct per the OR staff. Estimated Blood Loss 5 Drains No Packing No Pathology None sent Complications No immediate complications Condition Stable Disposition PACU
[2024-11-06 11:03] LABS: Glucose Point of Care 169 mg/dl (65-105)
--- NOTE | 2024-11-06 11:20 | ECG_ITS ---
Test Date: 2024-11-06 11:43:50 Measurements Intervals [place] Rate: 62 P: 69 NM: 183 QRS: 53 QRSD: 77 T: 51 QT: 393 QTc: 400 Interpretive Statements SINUS RHYTHM NORMAL ECG Compared to ECG 11/02/2024 09:21:30 No significant changes Electronically Signed On 11-06-2024 12:00:06 CDT by Titi Grove D.O.
--- NOTE | 2024-11-06 11:28 | SUR.PHASEI ---
1120 - EKG changes noted. Dr. Borrego called and order received for stat EKG. Cardiology aware of order
--- NOTE | 2024-11-06 11:57 | SUR.PHASEI ---
1145 - ekg rhythm remains in SR. Dr. Borrego aware. no additional orders received
== END 2024-11-06 13:12 | disposition home or self-care (01) ==
PROVIDERS: PCP Family Medicine; Visit Provider Obstetrics & Gynecology Gynecology
PROC: (CPT 49320; principal; 2024-11-06 10:30)
DX: R10.2 Pelvic and perineal pain (principal); N70.11 Chronic salpingitis; I10 Essential (primary) hypertension; E10.9 Type 1 diabetes mellitus without complications; F41.9 Anxiety disorder, unspecified; Z79.4 Long term (current) use of insulin
CPT/HCPCS: 49320; 82948; 93005; A9270; J0690; J1100; J1885; J2003; J2250; J2405; J2704; J3010; J7120

== ENCOUNTER 2025-01-01 09:01 | Outpatient (CLI) | payer OTHER, SELFPAY ==
--- NOTE | ~2025-01-01 | DEXA_ITS ---
Bone Density Report Name: GUADALUPE RIDLEY Age: 49 Sex: Female Ethnicity: White Date of : 1975 Indication: postmenopausal; screening for osteoporosis; Referring Provider: KADE, SEDA Study: Bone densitometry was performed. Exam Date: January 01, 2025 Accession number: [id number] Bone Density: Region BMD T-score Z-score Classification AP Spine(L1-L4) 1.024 -0.2 0.6 Normal Femoral Neck (Left) 0.746 -0.9 -0.1 Normal Total Hip (Left) 0.794 -1.2 -0.7 Osteopenia Femoral Neck (Right) 0.706 -1.3 -0.5 Osteopenia Total Hip (Right) 0.796 -1.2 -0.7 Osteopenia Total Hip Mean 0.795 -1.2 -0.7 Osteopenia World Health Organization criteria for BMD impression classify patients as: Normal (T-score at or above -1.0), Osteopenia (T-score between -1.0 and -2.5), or Osteoporosis (T-score at or below -2.5). 10-year Fracture Risk(1): Major Osteoporotic Fracture 4.6% Hip Fracture 0.3% Reported Risk Factors: [place] (), Neck BMD=0.706, BMI=30.9 (1) FRAX(R) Version 3.08. Fracture probability calculated for an untreated patient. Fracture probability may be lower if the patient has received treatment. Clinical Information Provided by Patient: Has used the following medications: Vitamin D Patient maximum height was 66 Menopause Age: 47 No regular weight bearing exercise Drinks caffeinated beverages Onset of menses at age 7 Number of children 0 Impression: The patient has low bone mass, based on the Right Femoral Neck T-score. The patient has an estimated ten-year risk of hip fracture of 0.3% and an estimated ten-year risk of major fracture of 4.6%, based on the WHO FRAX algorithm. Discussion: BONE DENSITY IS LOW AT ONE OR MORE SKELETAL SITES. This patient's lowest T-score is low at one or more skeletal sites. It meets the World Health Organization's (WHO) criteria for ?low bone mass? (T-score between -1.0 and -2.5). The patient's 10-year risk of fracture as calculated by FRAX is less than the threshold where pharmacological therapy is recommended by the National Osteoporosis Foundation (NOF). However, all treatment decisions require clinical judgment and consideration of individual patient factors, including patient preferences, comorbidities, previous drug use, risk factors not captured in the FRAX model (e.g., frailty, falls, vitamin D deficiency, increased bone turnover, interval significant decline in bone density) and possible under or overestimation of fracture risk by FRAX. The patient should follow a healthful lifestyle (good nutrition with adequate calcium and vitamin D, and appropriate weight-bearing exercise). Follow-Up: Consider repeating this study in 2 to 3 years to reassess this patient's status, or sooner if there is some new clinical indication. Reported by: JOSEF on 01/01/2025 9:42:00 AM. Reviewed, dictated and finalized at location A.
== END 2025-01-01 09:02 | disposition home or self-care (01) ==
LOC: MICIMG 09:02
PROVIDERS: PCP Family Medicine; Visit Provider Nurse Practitioner
DX: M85.89 Other specified disorders of bone density and structure, multiple sites (principal); Z78.0 Asymptomatic menopausal state; Z13.820 Encounter for screening for osteoporosis; Z12.31 Encounter for screening mammogram for malignant neoplasm of breast
CPT/HCPCS: 77080

== ENCOUNTER 2025-02-19 13:43 | Outpatient (CLI) | payer OTHER, SELFPAY ==
--- OUTSIDE RECORDS SUMMARY | 2025-02-19 14:02 | XMS_ITS ---
Author Organization [facility] [place] ([address]) Address [address] [place] [address] Care Team Providers Care Sales And Marketing Coordinator Name Role Phone Cem LERNER, Clayton Primary Care Provider Unavaila Briseyda Perez Unavailable [phone] REASON FOR VISIT ARC follow-up Encounters Encounter Location Date Provider Diagnosis [facility] [address] [place] [address] 06/07/2024 Briseyda Moon Plan Of Treatment No Information Progress Notes * Kit RIDLEYDOB:1975 ( 49 yo F)Acc No.[id number]:06/07/2024 Progress Notes Patient: Kit LEWIS Provider: Kaleb Moon MD :1975 A ge:48 Y S ex:Female Date:06/07/2024 Address:[address] [place], [place] [id number] Pcp:Clayton Priest MD Subjective: * Chief Complaints: * 1 . ARC follow-up. * Medical History: Objective: * Vitals: Assessment: Plan: * Treatment: * Billing Information: * Visit Code: * Procedure Codes: * Electronic signature of Cadence Moon MD on 02/19/2025 at 02:02 PM CDT Sign off status: Pending * Provider: Kaleb Moon MD Date: 08/07/2023 Generated for Jackeline dawson/Agapito/Linda on: 0 02/19/2025 02:02 PM JENNIFERT
--- OUTSIDE RECORDS SUMMARY | 2025-02-19 14:02 | XMS_ITS | Clinical Summary ---
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 Gender Identity Not on file Sexual Orientation Not on file Plan of Treatment Health Maintenance Due Date Last Done Comments Hepatitis C Virus (HCV) Screening 1975 TdaP Immunization 1975 Hepatitis B Immunization (1 of 3 - 19+ 3-dose series) 1992 HPV/Cotest 09/11/2003 Cologuard 2018 Colonoscopy 2018 Colorectal Cancer Screening 2018 Immunochemical Fecal Occult Blood 2018 Cervical Cancer Screening (CCS) 04/23/2020 Pap Smear 04/23/2020 04/23/2017 Pneumococcal Immunization (5 0+ years) (2 of 2 - PCV) 09/11/2023 06/10/2006 Zoster Immunization (1 of 2) 09/11/2023 SARS-COV-2 Immunization ( season) 2024 07/21/2021, 12/02/2020, 11/11/2020 Influenza Immunization (#1) 03/12/202504/11, 06/10/2006, 02/11/2006 Respiratory Syncytial Virus (RSV) Immunization (Adult) (1 - 1-dose 75+ series) 2048 Pneumococcal Immunization Combined Discontinued 06/10/2006 Human Papillomavirus (HPV) Immunization Aged Out No longer eligible based on patient's age to complete this topic Meningococcal Immunization (ACWY) Aged Out No longer eligible based on patient's age to complete this topic Rotavirus Immunization Aged Out No lo nger eligible based on patient's age to complete this topic
--- OUTSIDE RECORDS SUMMARY | 2025-02-19 14:02 | XMS_ITS | Clinical Summary ---
Author Organization [facility] Address [address] [place] [id number] Care Team Providers Care Web Design Instructor Name Role Phone Unavailable Primary Care Provider [...]
[2025-02-19 14:29] LABS: Hematocrit 40.1 % (37.0-47.0); Hemoglobin 12.9 g/dL (12.0-15.0); Mean Corpuscular HGB Conc 32.2 g/dl (32-36); Mean Corpuscular Hemoglobin 30.4 pg (26-34); Mean Corpuscular Volume 94.4 fl (80-100); Platelet Count Result 359 k/mm3 (150-375); Red Blood Count 4.25 M/mm3 (4.2-5.4); White Blood Count 6.1 K/mm3 (4.5-10.0)
[2025-02-19 16:00] LABS: Vitamin B12 386.0 pg/mL (239-931)
== END 2025-02-19 13:44 | disposition home or self-care (01) ==
LOC: ANHLAB 13:45
PROVIDERS: PCP Family Medicine; Visit Provider Family Medicine
DX: Z00.00 Encounter for general adult medical examination without abnormal findings (principal); R53.83 Other fatigue
CPT/HCPCS: 36415; 82607; 82746; 85027